=== PATIENT | male | born 1990 | race Caucasian/White ===

== ENCOUNTER 2022-03-03 12:51 | Inpatient (IN) | payer BC, OTHER ==
[2022-03-03] MEDS ORDERED: LORazepam 1 MG TAB PO STA (13:54)
[2022-03-03] MEDS ORDERED: SODIUM CHLORIDE 0.9% 1,000 ML IV STA (13:55)
[2022-03-03 15:23] LABS: Basophils # (A) 0.1 k/uL (0-0.2); Basophils % (A) 1 %; Eosinophils # (A) 0.1 k/uL (0-0.7); Eosinophils % (A) 1 %; HCT 53.2 % (39.0-53.0); HGB 17.1 gm/dL (13.0-17.5); Lymphocytes % (A) 7 %; MCHC 32.1 g/dL (31.0-37.0); MCV 99.5 fL (80.0-100.0); Mean Platelet Volume 8.5; Monocytes # (A) 1.8 k/uL (0-1.0); Monocytes % (A) 13 %; Neutrophils # (A) 10.7 k/uL (1.3-7.7); Neutrophils % (A) 77 %; Platelet Count 275 k/uL (150-450); RBC 5.35 m/uL (4.30-5.90); RDW 13.5 % (11.5-15.5); WBC 13.9 k/uL (3.8-10.6)
--- NOTE | 2022-03-03 15:30 | XR ---
EXAMINATION TYPE: XR chest 2V DATE OF EXAM: 03/03/2022 COMPARISON: NONE TECHNIQUE: PA and lateral views submitted. HISTORY: Pain FINDINGS: The lungs are clear and there is no pneumothorax, pleural effusion, or focal pneumonia. Heart size normal. No overt failure. IMPRESSION: 1. No acute process.
--- NOTE | 2022-03-03 15:31 | XR ---
EXAMINATION TYPE: XR Hip Complete RT DATE OF EXAM: 03/03/2022 COMPARISON: NONE HISTORY: Pain TECHNIQUE: 2 views submitted FINDINGS: There is no evidence of erosive change or acute fracture. IMPRESSION: 1. No evidence of acute fracture or dislocation.
--- NOTE | 2022-03-03 15:31 | XR ---
EXAMINATION TYPE: XR shoulder complete RT DATE OF EXAM: 03/03/2022 COMPARISON: NONE HISTORY: Pain TECHNIQUE: Three views are submitted. FINDINGS: The osseous structures are intact. There is no acute fracture or dislocation. The AC joint is maint ained. IMPRESSION: 1. No acute process.
--- NOTE | 2022-03-03 15:35 | ED ---
General Adult HPI - General Chief complaint: Fall Stated complaint: fall Time Seen by Provider: 03/03/22 12:58 Source: patient, EMS Mode of arrival: EMS Limitations: no limitations - History of Present Illness Initial comments: 1-year-old male with history of alcohol abuse presents to the emergency department from [place]. He went in today for admission. He reported to them that he was having numbness in his right arm as well as right hip pain. Admits that last night he got significantly intoxicated and found himself on the floor this morning. He was unsure how he got on the floor but assumed that he fell. He is unsure how long he had been unconscious for. He admits pain in the right proximal humerus with numbness and tingling that radiates from his right shoulder down to his fingertips. He denies any headaches or visual changes. No neck pain. He also admits to right hip pain. Urine sample that was provided at [place] was dark in coloration and this prompted his transfer over to the hospital. His last drink was last night. He denies use of any other drugs. He denies any chest pain or shortness of breath. No abdominal pain. No other alleviating, precipitating or modifying factors - Related Data Home Medications Medication Instructions Recorded Confirmed Labetalol [Trandate] 100 mg PO BID 03/03/22 03/03/22 amLODIPine [Norvasc] 10 mg PO DAILY 03/03/22 03/03/22 Allergies Allergy/AdvReac Type Severity Reaction Status Date / Time No Known Allergies Allergy Verified 03/03/22 17:00 Review of Systems ROS Statement: Those systems with pertinent positive or pertinent negative responses have been documented in the HPI. ROS Other: All systems not noted in ROS Statement are negative. Past Medical History Past Medical History: Hypertension History of Any Multi-Drug Resistant Organisms: None Reported Past Surgical History: No Surgical Hx Reported Past Psychological History: Anxiety, Bipolar, Depression Smoking Status: Current some day smoker Past Alcohol Use History: Daily Past Drug Use History: Marijuana - Past Family History Family Family Medical History: No Reported History General Exam Limitations: no limitations General appearance: alert, in no apparent distress Head exam: Present: atraumatic, normocephalic, normal inspection Eye exam: Present: normal appearance, PERRL, EOMI. Absent: scleral icterus, conjunctival injection, periorbital swelling ENT exam: Present: normal exam, mucous membranes moist Neck exam: Present: normal inspection. Absent: tenderness, meningismus, lymphadenopathy Respiratory exam: Present: normal lung sounds bilaterally. Absent: respiratory distress, wheezes, rales, rhonchi, stridor Cardiovascular Exam: Present: regular rate, normal rhythm, normal heart sounds. Absent: systolic murmur, diastolic murmur, rubs, gallop, clicks GI/Abdominal exam: Present: soft, normal bowel sounds. Absent: distended, tenderness, guarding, rebound, rigid Extremities exam: Present: tenderness (lateral right mid humerus), normal capillary refill, other (decreased soft touch in median, radial and ulnar nerve distibutions of right hand. slow ROM. 4/5 strength rue). Absent: pedal edema, joint swelling, calf tenderness Back exam: Present: normal inspection Neurological exam: Present: alert, oriented X3, CN II-XII intact Psychiatric exam: Present: normal affect, normal mood Skin exam: Present: warm, dry, intact, normal color. Absent: rash Course Vital Signs 03/03/22 03/03/22 03/03/22 12:54 18:00 21:00 Temperature 97.5 F L Pulse Rate 90 97 93 Respiratory 18 18 18 Rate Blood Pressure 100/74 119/81 118/81 O2 Sat by Pulse 97 97 97 Oximetry EKG Findings - EKG Comments: EKG Findings:: EKG demonstrates sinus rhythm with a rate of 97. OK interval 157. QRS 76. QTC of 369. No acute ST segment elevations or depressions Medical Decision Making - Medical Decision Making Upon arrival patient was placed into [place] [id number]. A thorough history and physical exam was performed. Patient does have palpable pulses. Compartments are soft in his right upper extremity. He does have intact sensation however this is decreased to light touch. There is notable pressure ulcer to the outside of the right humerus. IV was established and laboratory studies are conducted. It does take a significant amount of time to receive results due to elevations. Sodium 131. Creatinine 2.2. Lactic acid 2.9. Troponin 0.261. Creatinine kinase 143,513. Due to the elevation in troponin and numbness in the right arm, CT of the chest is considered for possible dissection. We did get approval from radiology in order to inject the patient with contrast knowing his GFR was 38. Chest x-ray, hip x-ray and shoulder x-ray all negative for acute process. CT the head and cervical spine demonstrates no acute fractures. CT abdomen and pelvis demonstrates right flank ecchymosis, hepatic steatosis and hepatomegaly CT of the chest does not demonstrate PE or dissection. I did call and speak with Dr. Chance and Dr. Varghese in regards to the patient's numbness in his right arm. Dr. Varghese does not feel that the patient needs a c-collar as he has no neck pain, is not intoxicated and CT of the neck is negative. I did discuss the results with the patient as well as with Dr. Landin who will admit the patient. He was given 3 L of fluid followed by 130 mL per hour. Patient remained in stable condition awaiting a bed on the floor - Lab Data Result diagrams: 03/05/22 06:30 03/05/22 06:30 Lab Results 03/03/22 03/03/22 03/03/22 Range/Units 15:00 15:00 15:00 WBC 13.9 H (3.8-10.6) k/uL RBC 5.35 (4.30-5.90) m/uL Hgb 17.1 (13.0-17.5) gm/dL Hct 53.2 H (39.0-53.0) % MCV 99.5 (80.0-100.0) fL MCH 32.0 (25.0-35.0) pg MCHC 32.1 (31.0-37.0) g/dL RDW 13.5 (11.5-15.5) % Plt Count 275 (150-450) k/uL MPV 8.5 Neutrophils % 77 % Lymphocytes % 7 % Monocytes % 13 % Eosinophils % 1 % Basophils % 1 % Neutrophils # 10.7 H (1.3-7.7) k/uL Lymphocytes # 1.0 (1.0-4.8) k/uL Monocytes # 1.8 H (0-1.0) k/uL Eosinophils # 0.1 (0-0.7) k/uL Basophils # 0.1 (0-0.2) k/uL PT 12.1 H (9.0-12.0) sec INR 1.1 (<1.2) APTT 34.5 H (22.0-30.0) sec Sodium (137-145) mmol/L Potassium (3.5-5.1) mmol/L Chloride (98-107) mmol/L Carbon Dioxide (22-30) mmol/L Anion Gap mmol/L BUN (9-20) mg/dL Creatinine (0.66-1.25) mg/dL Est GFR (CKD-EPI)AfAm (>60 ml/min/1.73 sqM) Est GFR (CKD-EPI)NonAf (>60 ml/min/1.73 sqM) Glucose (74-99) mg/dL Lactic Ac Sepsis Rflx Plasma Lactic Acid Navdeep 2.9 H* (0.7-2.0) mmol/L Calcium (8.4-10.2) mg/dL Total Bilirubin (0.2-1.3) mg/dL AST (17-59) U/L ALT (4-49) U/L Alkaline Phosphatase (38-126) U/L Creatine Kinase (55-170) U/L Troponin I (0.000-0.034) ng/mL Total Protein (6.3-8.2) g/dL Albumin (3.5-5.0) g/dL Serum Alcohol mg/dL 03/03/22 03/03/22 03/03/22 Range/Units 15:40 15:54 15:54 WBC (3.8-10.6) k/uL RBC (4.30-5.90) m/uL Hgb (13.0-17.5) gm/dL Hct (39.0-53.0) % MCV (80.0-100.0) fL MCH (25.0-35.0) pg MCHC (31.0-37.0) g/dL RDW (11.5-15.5) % Plt Count (150-450) k/uL MPV Neutrophils % % Lymphocytes % % Monocytes % % Eosinophils % % Basophils % % Neutrophils # (1.3-7.7) k/uL Lymphocytes # (1.0-4.8) k/uL Monocytes # (0-1.0) k/uL Eosinophils # (0-0.7) k/uL Basophils # (0-0.2) k/uL PT (9.0-12.0) sec INR (<1.2) APTT (22.0-30.0) sec Sodium 131 L (137-145) mmol/L Potassium 5.0 (3.5-5.1) mmol/L Chloride 98 (98-107) mmol/L Carbon Dioxide 25 (22-30) mmol/L Anion Gap 8 mmol/L BUN 19 (9-20) mg/dL Creatinine 2.24 H (0.66-1.25) mg/dL Est GFR (CKD-EPI)AfAm 44 (>60 ml/min/1.73 sqM) Est GFR (CKD-EPI)NonAf 38 (>60 ml/min/1.73 sqM) Glucose 117 H (74-99) mg/dL Lactic Ac Sepsis Rflx Y Plasma Lactic Acid Navdeep (0.7-2.0) mmol/L Calcium 8.5 (8.4-10.2) mg/dL Total Bilirubin 0.6 (0.2-1.3) mg/dL AST 1589 H (17-59) U/L ALT 420 H (4-49) U/L Alkaline Phosphatase 83 (38-126) U/L Creatine Kinase 460512 H* (55-170) U/L Troponin I 0.261 H* (0.000-0.034) ng/mL Total Protein 6.4 (6.3-8.2) g/dL Albumin 3.7 (3.5-5.0) g/dL Serum Alcohol <10 mg/dL Disposition Clinical Impression: Alcohol withdrawal, Rhabdomyolysis, JOHN (acute kidney injury), Neurapraxia of right upper extremity, NSTEMI (non-ST elevated myocardial infarction) Disposition: ADMITTED IP TO THIS [facility] Condition: Serious Is patient prescribed a controlled substance at d/c from ED?: No Time of Disposition: 17:53 Decision to Admit Reason: Admit from EC Decision Date: 03/03/22 Decision Time: 17:53
--- NOTE | 2022-03-03 15:35 | CT ---
EXAMINATION TYPE: CT brain princess jose con DATE OF EXAM: 03/03/2022 COMPARISON: None HISTORY: fall, trauma and pain CT DLP: 1402.5 mGycm Automated exposure control for dose reduction was used. TECHNIQUE: CT scan of the head and cervical spine are performed without contrast. FINDINGS: There is no acute intracranial hemorrhage, mass effect, or midline shift identified. The ventricles and sulci are within normal limits in size. The globes are intact and the visualized sin uses are clear. Cervical spine is visualized in its entirety from C1 through upper thoracic levels and demonstrates s atisfactory alignment without evidence of acute fracture or dislocation. Prevertebral soft tissue ap pears within normal limits. The C1-C2 articulation is unremarkable. IMPRESSION: 1. There is no acute fracture or dislocation evident in the cervical spine. 2. No acute intracranial hemorrhage, mass effect, or midline shift is seen.
[2022-03-03 15:55] LABS: INR 1.1 (<1.2); Partial Thromboplastin Time 34.5 sec (22.0-30.0); Prothrombin Time 12.1 sec (9.0-12.0)
--- NOTE | 2022-03-03 16:08 | CT ---
EXAMINATION TYPE: CT abdomen pelvis wo con DATE OF EXAM: 03/03/2022 COMPARISON: None HISTORY: right flank pain CT DLP: 653.9 mGycm Automated exposure control for dose reduction was used. TECHNIQUE: Helical acquisition of images from the lung bases through the pelvis. FINDINGS: Lack of intravenous contrast could compromise the sensitivity of the exam. There is increased attenuation present about the right hip musculature, increased density within the subcutaneous fat, gluteus musculature appears edematous some loss of fat planes, gluteus minimus musc ulature and gluteus medius muscle, tensor fascia maurice muscle. LUNG BASES: There may be some basilar atelectatic changes or scarring AORTA: No significant abnormality is appreciated. LIVER/GB: Liver shows low attenuation likely due to hepatic steatosis, liver is enlarged, gallbladder is unremarkable, some probable focal fatty sparing present adjacent to the gallbladder PANCREAS: No significant abnormality is seen. SPLEEN: No significant abnormality is seen. ADRENALS: No significant abnormality is seen. KIDNEYS: No significant abnormality is seen. REPRODUCTIVE ORGANS: No significant abnormality is seen. URINARY BLADDER: No significant abnormality is seen. BOWEL: No significant abnormality is seen. FREE AIR: No Free Air is visible. ASCITES: None visible. PELVIC ADENOPATHY: None visualized. RETROPERITONEAL ADENOPATHY: No Retroperitoneal Adenopathy visible. OSSEOUS STRUCTURES: No significant abnormality is seen. IMPRESSION: CORRELATE FOR RIGHT FLANK ECCHYMOSIS, CONSIDER MYOSITIS, POSTTRAUMATIC EDEMA ALONG THE PELVIC MUSCULA TURE ON THE RIGHT. HEPATIC STEATOSIS, HEPATOMEGALY.
[2022-03-03 16:21] LABS: ALT 420 U/L (4-49); African American GFR (CKD) 44 (>60 ml/min/1.73 sqM); Albumin 3.7 g/dL (3.5-5.0); Alcohol <10 mg/dL; Alkaline Phosphatase 83 U/L (38-126); Anion Gap 8 mmol/L; Blood Urea Nitrogen 19 mg/dL (9-20); Calcium 8.5 mg/dL (8.4-10.2); Carbon Dioxide 25 mmol/L (22-30); Chloride 98 mmol/L (98-107); Glucose 117 mg/dL (74-99); Non-African American GFR(CKD) 38 (>60 ml/min/1.73 sqM); Sodium 131 mmol/L (137-145); Total Bilirubin 0.6 mg/dL (0.2-1.3); Total Protein 6.4 g/dL (6.3-8.2)
[2022-03-03 17:00] LABS: AST 1589 U/L (17-59)
[2022-03-03] MEDS ORDERED: SODIUM CHLORIDE 0.9% 2,000 ML IV ONE (17:09)
--- NOTE | 2022-03-03 17:50 | CT ---
EXAMINATION TYPE: CT angio chest CT DLP: 435.5 mGycm, Automated exposure control for dose reduction was used. DATE OF EXAM: 03/03/2022 5:23 PM COMPARISON: None CLINICAL INDICATION:Male, 31 years old with history of elevated trop; Elevated troponin. Recent fall. TECHNIQUE/CONTRAST: CTA scan of the thorax is performed with IV Contrast, patient injected with 65ml mL of Isovue 370, pu lmonary embolism protocol. MIP images are created and reviewed. FINDINGS: Pulmonary Artery: There is no evidence for a filling defect within the pulmonary vasculature to sugge st acute pulmonary embolism. The pulmonary artery is of normal size. Lungs/Pleura: Scattered airspace opacities most pronounced in the right upper lung are present. No ev idence of focal consolidation, pleural effusion or pneumothorax. Airway: Large airways are patent. Heart: Heart is within normal limits for size.. Vasculature: No evidence of aortic aneurysm. Mediastinum: No gross evidence of adenopathy. Musculoskeletal: No acute osseous abnormalities Soft Tissues: Unremarkable. Lower neck: No significant findings. Upper Abdomen: Diffuse low-attenuation to the liver parenchyma.. IMPRESSION: 1. No evidence of pulmonary embolism. 2. Scattered airspace opacities in the right upper lobe which are slightly groundglass, correlate for atypical pneumonia 3. Marked Hepatic steatosis.
[2022-03-03 17:51] LABS: Creatine Kinase 143513 U/L (55-170)
[2022-03-03] MEDS ORDERED: NALOXONE 0.4 MG/ML 1 ML VIAL IV PRN (17:53)
[2022-03-03] MEDS ORDERED: THIAMINE 100 MG/ML 2 ML VIAL IM STA (22:08)
[2022-03-03] MEDS: THIAMINE 100 MG TAB PO SCH (22:31)
[2022-03-03] MEDS: SODIUM CHLORIDE 0.9% 1,000 ML IV SCH ×2 (22:39→22:48)
[2022-03-03] MEDS: LABETALOL 100 MG TAB PO SCH (22:39)
[2022-03-03] MEDS: LORazepam 2 MG/ML INJ IV PRN ×2 (22:40→23:38)
[2022-03-03] MEDS ORDERED: chlordiazePOXIDE 25 MG CAP PO STA (22:44)
--- NOTE | 2022-03-03 22:55 | P.HPIM ---
History of Present Illness H&P Date: 03/03/22 Chief Complaint: Alcohol withdrawal 31-year-old male with hypertension controlled with medications Patient comes in today for evaluation of alcohol withdrawal syndrome. He i nitially went [facility] but then was sent to our facility as the patient reported that he was very intoxicated last night that he woke up on the floor doesn't remember anything he was having right-sided pain especially in his shoulder arm and right hip from sleeping on the floor all night for unknown duration. He also noticed to have dark urine. 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 He's been drinking heavily recently. Patient is not sure if he fell or no he doesn't remember anything from last night. Last alcoholic drink was last night. He denies any drugs he would smoke marijuana occasionally. He smokes cigarettes occasionally. He denies any recent travel or history of blood clots. Denies any coughing shortness of breath or chest pain. CT of the head was negative x-rays of the shoulder and hip showed no acute pathology chest x-rays no acute pathology. Rest of his blood work showed elevated creatine phosphokinase of more than 140,000, acute kidney injury with elevated creatinine more than 2 mild hyponatremia potassium of 5 lactic acid of 2.9 elevated liver enzymes in the toxic level patient denies any overdosing on Tylenol salicylic or any other drugs. Troponin was slightly elevated at 0.26 Patient reports severe pain right upper extremity mainly in the right shoulder and right hip. He also reports some numbness since he woke up and has right upper extremity mainly in the hand Review of Systems Pertinent positives as noted in HPI. All other systems were reviewed and are negative Past Medical History Past Medical History: Hypertension History of Any Multi-Drug Resistant Organisms: None Reported Past Surgical History: No Surgical Hx Reported Past Psychological History: Anxiety, Bipolar, Depression Smoking Status: Current some day smoker Past Alcohol Use History: Daily Past Drug Use History: Marijuana - Past Family History Family Family Medical History: No Reported History Medications and Allergies Home Medications Medication Instructions Recorded Confirmed Type Labetalol [Trandate] 100 mg PO BID 03/03/22 03/03/22 History amLODIPine [Norvasc] 10 mg PO DAILY 03/03/22 03/03/22 History Allergies Allergy/AdvReac Type Severity Reaction Status Date / Time No Known Allergies Allergy Verified 03/03/22 17:00 Physical Exam Vitals: Vital Signs Temp Pulse Resp BP Pulse Ox 03/03/22 18:00 97 18 119/81 97 03/03/22 12:54 97.5 F L 90 18 100/74 97 Intake and Output 03/03/22 03/03/22 03/03/22 06:59 14:59 22:59 Other: Weight 83.915 kg Constitutional: No acute distress, conversant, pleasant, tremors Eyes: Anicteric sclerae, moist conjunctiva, Pupils equal round reactive to light ENMT: NC/AT Oropharynx clear, no erythema, or exudates Neck: Supple, no masses, or JVD No carotid bruits No thyromegaly Lungs: Clear to auscultation Clear to percussion Normal respiratory effort, no accessory muscle use Cardiovascular: Heart regular in rate and rhythm, No murmurs, gallops, or rubs No peripheral edema Abdominal: Soft Nontender, no guarding, rebound or rigidity Abdomen moving with respiration Normoactive bowel sounds No hepatomegaly, No splenomegaly No palpable mass No abdominal wall hernia noted Skin: Normal temperature, tone, texture, turgor No induration No subcutaneous nodules No rash, lesions No ulcers Extremities: Swelling of the right upper extremity tender to palpation over the arm, No clubbing Pedal pulses intact and symmetrical Radial pulses intact and symmetrical capillary refill is immediate No calf tenderness Psychiatric: Alert and oriented to person, place and time Appropriate affect fair judgement Neuro Muscles Strength 5/5 in bilateral lower extremities and left upper extremity, limited movement over the right upper extremity due to severe pain Sensation to light touch grossly present throughout Cranial nerves II-XII grossly intact No focal sensory deficits Lymphatics: no palpable cervical or supraclavicular , or inguinal lymph nodes Results CBC & Chem 7: 03/03/22 15:00 03/03/22 15:54 Labs: Abnormal Lab Results - Last 24 Hours (Table) 03/03/22 03/03/22 03/03/22 Range/Units 15:00 15:00 15:00 WBC 13.9 H (3.8-10.6) k/uL Hct 53.2 H (39.0-53.0) % Neutrophils # 10.7 H (1.3-7.7) k/uL Monocytes # 1.8 H (0-1.0) k/uL PT 12.1 H (9.0-12.0) sec APTT 34.5 H (22.0-30.0) sec Sodium (137-145) mmol/L Creatinine (0.66-1.25) mg/dL Glucose (74-99) mg/dL Plasma Lactic Acid Navdeep 2.9 H* (0.7-2.0) mmol/L AST (17-59) U/L ALT (4-49) U/L Creatine Kinase (55-170) U/L Troponin I (0.000-0.034) ng/mL 03/03/22 03/03/22 Range/Units 15:54 15:54 WBC (3.8-10.6) k/uL Hct (39.0-53.0) % Neutrophils # (1.3-7.7) k/uL Monocytes # (0-1.0) k/uL PT (9.0-12.0) sec APTT (22.0-30.0) sec Sodium 131 L (137-145) mmol/L Creatinine 2.24 H (0.66-1.25) mg/dL Glucose 117 H (74-99) mg/dL Plasma Lactic Acid Navdeep (0.7-2.0) mmol/L AST 1589 H (17-59) U/L ALT 420 H (4-49) U/L Creatine Kinase 618881 H* (55-170) U/L Troponin I 0.261 H* (0.000-0.034) ng/mL Assessment and Plan Assessment: Acute rhabdomyolysis Acute kidney injury secondary to above Monitor CPK Monitor renal function Monitor urine output target of 200 mL/h Aggressive IV fluid hydration patient to receive 2-3 L normal saline boluses 1 L /h then continue with normal saline 250 mL per hour Nephrology consult Avoid nephrotoxic meds Monitor electrolytes potassium, phosphorus, calcium Bicarb is 25 Alcohol withdrawal syndrome in alcohol dependent patient Acute hepatic toxicity most likely secondary to alcohol abuse and shocked liver from dehydration Elevated lactic acid was likely secondary to dehydration and poor perfusion Again aggressive IV fluid hydration Monitor liver function Avoid hepatotoxic meds Benzos per CIWA scale Seizure precautions Fall precautions Hypertension Controlled Resume labetalol and amlodipine DVT prophylaxis heparin subcu 3 times a day Full code
[2022-03-03] MEDS: HEPARIN SODIUM,PORCINE/PF 5,000 UNIT/0.5 ML SYRINGE SQ SCH (23:59)
[2022-03-04] MEDS: LORazepam 2 MG/ML INJ IV PRN ×6 (01:35→20:07)
[2022-03-04 02:26] LABS: Amorphous Sediment,Urine Rare /hpf; Appearance,Urine Cloudy (Clear); Bacteria,Urine Rare /hpf; Bilirubin,Urine Negative (Negative); Blood,Urine Large (Negative); Color,Urine Yellow; Glucose,Urine (UA) Negative (Negative); Hyaline Casts,Urine 1 /lpf (0-2); Ketones,Urine Negative (Negative); Leukocyte Esterase,Urine Negative (Negative); Mucus,Urine Rare /hpf; Nitrite,Urine Negative (Negative); PH, Urine 5.5 (5.0-8.0); Protein,Urine 2+ (Negative); RBC,Urine 9 /hpf (0-5); Specific Gravity,Urine 1.011 (1.001-1.035); Squamous Epithelial Cell,Urine <1 /hpf (0-4); Urobilinogen,Urine <2.0 mg/dL (<2.0); WBC,Urine 3 /hpf (0-5)
[2022-03-04 02:28] LABS: Amphetamine Screen,Urine Not Detected (NotDetected); Barbiturate Screen,Urine Not Detected (NotDetected); Benzodiazepines Screen,Urine Detected (NotDetected); Cocaine Screen,Urine Not Detected (NotDetected); Methadone Screen, Urine Not Detected (NotDetected); Opiate Screen,Urine Not Detected (NotDetected); Oxycodone Screen, Urine Not Detected (NotDetected); Phencyclidine Screen,Urine Not Detected (NotDetected); Tricyclic Antidepressant,Urine Not Detected (NotDetected); Urn Cannabinoid Scrn Not Detected (NotDetected)
[2022-03-04] MEDS: SODIUM CHLORIDE 0.9% 1,000 ML IV SCH ×5 (03:02→16:07)
[2022-03-04 04:13] LABS: Albumin 2.6 g/dL (3.5-5.0); Calcium 7.7 mg/dL (8.4-10.2); Phosphorus 5.9 mg/dL (2.5-4.5); Potassium 4.6 mmol/L (3.5-5.1); Total Bilirubin 0.4 mg/dL (0.2-1.3)
[2022-03-04 04:19] LABS: Basophils % (A) 0 %; Eosinophils % (A) 0 %; HCT 44.2 % (39.0-53.0); Lymphocytes # (A) 1.1 k/uL (1.0-4.8); Lymphocytes % (A) 10 %; MCH 30.6 pg (25.0-35.0); MCHC 31.4 g/dL (31.0-37.0); MCV 97.6 fL (80.0-100.0); Mean Platelet Volume 7.7; Monocytes # (A) 1.1 k/uL (0-1.0); Monocytes % (A) 10 %; Neutrophils # (A) 8.9 k/uL (1.3-7.7); Neutrophils % (A) 79 %; Platelet Count 214 k/uL (150-450); RBC 4.53 m/uL (4.30-5.90); RDW 13.2 % (11.5-15.5); WBC 11.3 k/uL (3.8-10.6)
[2022-03-04 04:30] LABS: HGB 13.9 gm/dL (13.0-17.5)
[2022-03-04] MEDS: PANTOPRAZOLE 40 MG TABLET PO SCH (06:14)
[2022-03-04] MEDS: THIAMINE 100 MG TAB PO SCH ×2 (06:14→16:18)
[2022-03-04] MEDS: HEPARIN SODIUM,PORCINE/PF 5,000 UNIT/0.5 ML SYRINGE SQ SCH ×3 (08:35→22:42)
[2022-03-04] MEDS: amLODIPine 10 MG TAB PO SCH (08:35)
[2022-03-04] MEDS: LABETALOL 100 MG TAB PO SCH ×2 (08:38→20:00)
[2022-03-04 09:40] LABS: Hepatitis A Antibody IgM Nonreactive (Nonreactive); Hepatitis B Core IgM Nonreactive (Nonreactive); Hepatitis B Surface Antigen Nonreactive (Nonreactive); Hepatitis C IgG Antibody Nonreactive (Nonreactive)
--- NOTE | 2022-03-04 10:42 | P.GSCN ---
History of Present Illness Consult date: 03/04/22 Reason for Consult: Right upper extremity numbness Requesting physician: Martina Malhotra History of present illness: This is a 31-year-old white male who presented to the emergency department yesterday from [facility] with complaints of pain and numbness in the right upper extremity and right hip. Apparently, the patient states he drank quite heavily on Wednesday and last remembers coming out of his bathroom. He woke up yesterday on the floor. He is unsure how long he was there. He states that he was experiencing right upper extremity and hip pain. However he had an appointment at [facility] and did not want to miss it. He has a history of heavy alcohol use. He states he was going through withdrawals. He states numbness has improved in the right upper extremity. He is now able to move his hand more and has more feeling. He is still having pain mostly in the shoulder to the elbow. He is left-hand dominant. He is denying any chest pain, shortness of breath, abdominal pain, nausea or vomiting. No fevers or chills. He is stating that he is going through withdrawals at this time and is quite s haky. He was noted to have elevated lactic acid, creatinine kinase, and troponins on admission. Shoulder x-ray with no acute findings, CT brain and C- spine without contrast reports no acute fracture or dislocation evident in the cervical spine. No acute intracranial hemorrhage, mass effect or midline shift seen. Labs: WBC 11.3 hemoglobin 13.9 platelet count 214,000 INR 1.1 sodium 126 potassium 4.6 BUN 24 creatinine 3.44 total bilirubin 0.4 AST 1070 ALT 294 alk phos 69 creatinine kinase 94817 troponin 0.236 hepatitis panel nonreactive Review of Systems A 14 point review systems was completed all pertinent positives and negatives as stated in the HPI. Past Medical History Past Medical History: Hypertension History of Any Multi-Drug Resistant Organisms: None Reported Past Surgical History: No Surgical Hx Reported Past Anesthesia/Blood Transfusion Reactions: No Reported Reaction Past Psychological History: Anxiety, Bipolar, Depression Smoking Status: Current some day smoker Past Alcohol Use History: Daily Past Drug Use History: Marijuana - Past Family History Family Family Medical History: No Reported History Medications and Allergies Home Medications Medication Instructions Recorded Confirmed Type Labetalol [Trandate] 100 mg PO BID 03/03/22 03/03/22 History amLODIPine [Norvasc] 10 mg PO DAILY 03/03/22 03/03/22 History Allergies Allergy/AdvReac Type Severity Reaction Status Date / Time No Known Allergies Allergy Verified 03/03/22 17:00 Surgical - Exam Vital Signs Temp Pulse Resp BP Pulse Ox 97.5 F L 90 18 100/74 97 03/03/22 12:54 03/03/22 12:54 03/03/22 12:54 03/03/22 12:54 03/03/22 12:54 General appearance: The patient is alert, oriented, appears in no acute distress. HET: Head is normocephalic and atraumatic. Pupils are equal and reactive. Neck: Supple without lymphadenopathy. Trachea midline. Heart: S1 S2. Regular rate and rhythm. Lungs: Clear to auscultation bilaterally. Abdomen: Soft, nontender, nondistended. Extremities: Normal skin color and turgor. Right upper extremity swollen from shoulder to elbow. Bruising noted to the lateral side of the right upper extre mity. He has a palpable radial and ulnar pulse. Normal strength and tone. He is able to move his fingers. He does have difficulty with elevation of right arm and rotation of the shoulder due to pain. Neurological: No focal deficits. Alert and oriented 3. Patient is visibly shaking/tremors. Results - Labs 03/04/22 03:24 03/04/22 03:24 Abnormal Lab Results - Last 24 Hours (Table) 03/03/22 03/03/22 03/03/22 Range/Units 15:00 15:00 15:00 WBC 13.9 H (3.8-10.6) k/uL Hct 53.2 H (39.0-53.0) % Neutrophils # 10.7 H (1.3-7.7) k/uL Monocytes # 1.8 H (0-1.0) k/uL PT 12.1 H (9.0-12.0) sec APTT 34.5 H (22.0-30.0) sec Sodium (137-145) mmol/L Carbon Dioxide (22-30) mmol/L BUN (9-20) mg/dL Creatinine (0.66-1.25) mg/dL Glucose (74-99) mg/dL Plasma Lactic Acid Navdeep 2.9 H* (0.7-2.0) mmol/L Calcium (8.4-10.2) mg/dL Phosphorus (2.5-4.5) mg/dL AST (17-59) U/L ALT (4-49) U/L Creatine Kinase (55-170) U/L Troponin I (0.000-0.034) ng/mL Total Protein (6.3-8.2) g/dL Albumin (3.5-5.0) g/dL Urine Protein (Negative) Urine Blood (Negative) Urine RBC (0-5) /hpf Amorphous Sediment (None) /hpf Urine Bacteria (None) /hpf Urine Mucus (None) /hpf U Benzodiazepines Scrn (NotDetected) 03/03/22 03/03/22 03/03/22 Range/Units 15:54 15:54 20:28 WBC (3.8-10.6) k/uL Hct (39.0-53.0) % Neutrophils # (1.3-7.7) k/uL Monocytes # (0-1.0) k/uL PT (9.0-12.0) sec APTT (22.0-30.0) sec Sodium 131 L (137-145) mmol/L Carbon Dioxide (22-30) mmol/L BUN (9-20) mg/dL Creatinine 2.24 H (0.66-1.25) mg/dL Glucose 117 H (74-99) mg/dL Plasma Lactic Acid Navdeep 2.2 H* (0.7-2.0) mmol/L Calcium (8.4-10.2) mg/dL Phosphorus (2.5-4.5) mg/dL AST 1589 H (17-59) U/L ALT 420 H (4-49) U/L Creatine Kinase 364446 H* (55-170) U/L Troponin I 0.261 H* (0.000-0.034) ng/mL Total Protein (6.3-8.2) g/dL Albumin (3.5-5.0) g/dL Urine Protein (Negative) Urine Blood (Negative) Urine RBC (0-5) /hpf Amorphous Sediment (None) /hpf Urine Bacteria (None) /hpf Urine Mucus (None) /hpf U Benzodiazepines Scrn (NotDetected) 03/03/22 03/04/22 03/04/22 Range/Units 23:30 01:28 03:24 WBC 11.3 H (3.8-10.6) k/uL Hct (39.0-53.0) % Neutrophils # 8.9 H (1.3-7.7) k/uL Monocytes # 1.1 H (0-1.0) k/uL PT (9.0-12.0) sec APTT (22.0-30.0) sec Sodium (137-145) mmol/L Carbon Dioxide (22-30) mmol/L BUN (9-20) mg/dL Creatinine (0.66-1.25) mg/dL Glucose (74-99) mg/dL Plasma Lactic Acid Navdeep 2.4 H* (0.7-2.0) mmol/L Calcium (8.4-10.2) mg/dL Phosphorus (2.5-4.5) mg/dL AST (17-59) U/L ALT (4-49) U/L Creatine Kinase (55-170) U/L Troponin I (0.000-0.034) ng/mL Total Protein (6.3-8.2) g/dL Albumin (3.5-5.0) g/dL Urine Protein 2+ H (Negative) Urine Blood Large H (Negative) Urine RBC 9 H (0-5) /hpf Amorphous Sediment Rare H (None) /hpf Urine Bacteria Rare H (None) /hpf Urine Mucus Rare H (None) /hpf U Benzodiazepines Scrn Detected H (NotDetected) 03/04/22 03/04/22 Range/Units 03:24 03:24 WBC (3.8-10.6) k/uL Hct (39.0-53.0) % Neutrophils # (1.3-7.7) k/uL Monocytes # (0-1.0) k/uL PT (9.0-12.0) sec APTT (22.0-30.0) sec Sodium 126 L (137-145) mmol/L Carbon Dioxide 21 L (22-30) mmol/L BUN 24 H (9-20) mg/dL Creatinine 3.44 H (0.66-1.25) mg/dL Glucose (74-99) mg/dL Plasma Lactic Acid Navdeep (0.7-2.0) mmol/L Calcium 7.7 L (8.4-10.2) mg/dL Phosphorus 5.9 H (2.5-4.5) mg/dL AST 1070 H (17-59) U/L ALT 294 H (4-49) U/L Creatine Kinase 20210 H* (55-170) U/L Troponin I (0.000-0.034) ng/mL Total Protein 5.0 L (6.3-8.2) g/dL Albumin 2.6 L (3.5-5.0) g/dL Urine Protein (Negative) Urine Blood (Negative) Urine RBC (0-5) /hpf Amorphous Sediment (None) /hpf Urine Bacteria (None) /hpf Urine Mucus (None) /hpf U Benzodiazepines Scrn (NotDetected) Diabetes panel 03/03/22 03/04/22 Range/Units 15:54 03:24 Sodium 131 L 126 L (137-145) mmol/L Potassium 5.0 4.6 (3.5-5.1) mmol/L Chloride 98 101 (98-107) mmol/L Carbon Dioxide 25 21 L (22-30) mmol/L BUN 19 24 H (9-20) mg/dL Creatinine 2.24 H 3.44 H (0.66-1.25) mg/dL Glucose 117 H 93 (74-99) mg/dL Calcium 8.5 7.7 L (8.4-10.2) mg/dL AST 1589 H 1070 H (17-59) U/L ALT 420 H 294 H (4-49) U/L Alkaline Phosphatase 83 69 (38-126) U/L Total Protein 6.4 5.0 L (6.3-8.2) g/dL Albumin 3.7 2.6 L (3.5-5.0) g/dL Calcium panel 03/03/22 03/04/22 Range/Units 15:54 03:24 Calcium 8.5 7.7 L (8.4-10.2) mg/dL Phosphorus 5.9 H (2.5-4.5) mg/dL Albumin 3.7 2.6 L (3.5-5.0) g/dL Pituitary panel 03/03/22 03/04/22 Range/Units 15:54 03:24 Sodium 131 L 126 L (137-145) mmol/L Potassium 5.0 4.6 (3.5-5.1) mmol/L Chloride 98 101 (98-107) mmol/L Carbon Dioxide 25 21 L (22-30) mmol/L BUN 19 24 H (9-20) mg/dL Creatinine 2.24 H 3.44 H (0.66-1.25) mg/dL Glucose 117 H 93 (74-99) mg/dL Calcium 8.5 7.7 L (8.4-10.2) mg/dL Adrenal panel 03/03/22 03/04/22 Range/Units 15:54 03:24 Sodium 131 L 126 L (137-145) mmol/L Potassium 5.0 4.6 (3.5-5.1) mmol/L Chloride 98 101 (98-107) mmol/L Carbon Dioxide 25 21 L (22-30) mmol/L BUN 19 24 H (9-20) mg/dL Creatinine 2.24 H 3.44 H (0.66-1.25) mg/dL Glucose 117 H 93 (74-99) mg/dL Calcium 8.5 7.7 L (8.4-10.2) mg/dL Total Bilirubin 0.6 0.4 (0.2-1.3) mg/dL AST 1589 H 1070 H (17-59) U/L ALT 420 H 294 H (4-49) U/L Alkaline Phosphatase 83 69 (38-126) U/L Total Protein 6.4 5.0 L (6.3-8.2) g/dL Albumin 3.7 2.6 L (3.5-5.0) g/dL Assessment and Plan Assessment: 1. Right upper extremity pain and numbness 2. Right upper extremity injury 3. Fall 4. Alcohol Intoxication and abuse 5. Right hip pain 6. Elevated troponins 7. Elevated creatinine kinase, rhabdomyolysis Plan: 1. Right upper extremity venous duplex ordered 2. Await recommendations from orthopedics 3. Continue medical management 4. Elevate right upper extremity, may apply compression stocking to RUE 5. Please change IV fluids to left arm 6. There is no indication for any vascular surgical intervention. Thank you for this consultation, we will sign off at this time. The impression and plan of care has been dictated as directed. Dr. Chance I performed a history and examination of this patient, discussed the same with the dictator. I agree with the dictator's note ,documented as a scribe. Any additional findings or plans will be noted.
--- NOTE | 2022-03-04 10:45 | P.NPCON ---
History of Present Illness - Reason for Consult hyponatremia - History of Present Illness Patient is a 31-year-old male with previous history of hypertension and alcohol abuse. Patient was sent over from [facility] for evaluation. Patient presented there post fall. He had been intoxicated and was on the floor overnight. Patient states that he did not move much. He reported having noticed small amounts of dark urine. No previous history of kidney diseases CK was elevated at 422571 [place] [address] today Patient is maintained on IV fluids at 250 mL an hour Review of Systems As per HPI other systems negative Past Medical History Past Medical History: Hypertension History of Any Multi-Drug Resistant Organisms: None Reported Past Surgical History: No Surgical Hx Reported Past Anesthesia/Blood Transfusion Reactions: No Reported Reaction Past Psychological History: Anxiety, Bipolar, Depression Smoking Status: Current some day smoker Past Alcohol Use History: Daily Past Drug Use History: Marijuana - Past Family History Family Family Medical History: No Reported History Medications and Allergies Home Medications Medication Instructions Recorded Confirmed Type Labetalol [Trandate] 100 mg PO BID 03/03/22 03/03/22 History amLODIPine [Norvasc] 10 mg PO DAILY 03/03/22 03/03/22 History Allergies Allergy/AdvReac Type Severity Reaction Status Date / Time No Known Allergies Allergy Verified 03/03/22 17:00 Physical Exam Vitals: Vital Signs Temp Pulse Pulse Pulse Resp BP BP 03/04/22 08:00 98.1 F 91 16 134/81 03/04/22 04:00 98.4 F 90 16 119/77 03/03/22 23:53 98.5 F 94 19 130/89 03/03/22 22:12 98.5 F 94 16 130/89 03/03/22 21:00 93 18 118/81 03/03/22 18:00 97 18 119/81 03/03/22 12:54 97.5 F L 90 18 100/74 Pulse Ox 03/04/22 08:00 98 03/04/22 04:00 96 03/03/22 23:53 99 03/03/22 22:12 99 03/03/22 21:00 97 03/03/22 18:00 97 03/03/22 12:54 97 Intake and Output 03/03/22 03/04/22 03/04/22 22:59 06:59 14:59 Intake Total 1440 Output Total 200 Balance 1240 Intake: Oral 1440 Output: Urine 200 Other: Voiding Method Toilet Toilet Urinal Urinal Weight 83.915 kg Patient is awake, comfortable, not in any acute distress Alert oriented 3 Examination of the heart S1 and S2 Examination lungs bilateral breath sounds are heard Abdomen is soft nontender Examination of the lower extremities shows no evidence of edema HEMATOLOGY NURSE exam grossly intact Results - Lab Results Most recent lab results Calcium 7.7 mg/dL (8.4-10.2) L 03/04/22 03:24 Phosphorus 5.9 mg/dL (2.5-4.5) H 03/04/22 03:24 03/04/22 03:24 03/04/22 03:24 Assessment and Plan Assessment: 1. Acute kidney injury ATN secondary to rhabdomyolysis. Monitor urine output accurately. Avoid any nephrotoxic agents. Patient did have CTA of the chest yesterday. UA shows blood and protein. CT showed no evidence of obstruction 2. Severe rhabdo my lysis status post fall. Patient was on the floor overnight. CK levels are decreasing 3. Hyperphosphatemia associated with rhabdo my lysis 4. EtOH abuse 5. Hypovolemia 6. Hyponatremia associated with acute kidney injury, worsens with normal saline. Plan: Change IV fluids to IV bicarb Check sodium stat. If serum sodium is lower patient will be started on a bicarb drip based in half normal saline. Avoid any further nephrotoxic agents Check accurate I's and O's Avoid hypotension Thank you for the consultation. We'll continue to follow the patient with you during his hospitalization
[2022-03-04] MEDS: ACETAMINOPHEN TAB 325 MG TAB PO PRN (11:58)
[2022-03-04] MEDS: PREGABALIN 25 MG CAP PO SCH ×2 (11:58→19:59)
--- NOTE | 2022-03-04 12:04 | US ---
EXAMINATION TYPE: US venous doppler duplex UE RT DATE OF EXAM: 03/04/2022 COMPARISON: NONE CLINICAL HISTORY: RUE injury, swelling. RUE injury, pain and swelling. Patient fell on his right arm. SIDE PERFORMED: Right Grayscale, color Doppler, spectral Doppler imaging performed. Visualized portions the right internal jugular vein, right subclavian vein, right axillary vein, righ t basilic vein, right cephalic vein, right brachial vein, radial veins and no abnormal luminal echoes . Ulnar veins not well seen. There is normal compressibility, normal color flow, vascular waveforms a re present. Right Arm: Internal echoes seen within superficial vessel just below the elbow. This appears to be a branch of the basilic vein. Vessel does not appear to compress and shows color defect. No evidence of DVT at this time. *Exam is limited due to patient's pain and limited mobility of arm. IMPRESSION: No evident deep venous thrombosis. Findings suggest superficial venous thrombosis at a venous perfor ator as described.
--- NOTE | 2022-03-04 12:10 | P.PN ---
Subjective Progress Note Date: 03/04/22 Patient is doing better today. Still complains of pain in the right arm and right hip with numbness/tingling down the length of the arm. Has not had much urine output, approximately 500 mL, despite 5-6 L of fluid. Creatinine is improving. CK is improving. Nephrology following. Gen: awake, alert HEENT: normocephalic, atraumatic, good hearing acuity, moist mucous membranes Resp: good air exchange, breathing comfortably with no accessory muscle use CVS: good distal perfusion x 4, GI: soft, NTTP, ND : no SPT, no CVAT, adler catheter not present MSK: no pitting edema, no clubbing Neuro: non-focal, moving all extremities Psych: cooperative, euthymic mood Assessment/plan: Acute rhabdomyolysis Acute kidney injury secondary to above Monitor CPK Monitor renal function Monitor urine output target of 200 mL/h Aggressive IV fluid hydration with normal saline 250 mL per hour Nephrology consult Avoid nephrotoxic meds Monitor electrolytes potassium, phosphorus, calcium Bicarb is 25 Alcohol withdrawal syndrome in alcohol dependent patient Acute hepatic toxicity most likely secondary to alcohol abuse and shocked liver from dehydration Elevated liver enzymes also secondary to rhabdomyolysis Elevated lactic acid was likely secondary to dehydration and poor perfusion Again aggressive IV fluid hydration Monitor liver function Avoid hepatotoxic meds Benzos per CIWA scale Seizure precautions Fall precautions Hypertension Controlled Resume labetalol and amlodipine DVT prophylaxis heparin subcu 3 times a day Full code Objective - Vital Signs Vital signs: Vital Signs Temp 98 F 03/04/22 12:00 Pulse 87 03/04/22 12:00 Resp 16 03/04/22 12:02 BP 124/76 03/04/22 12:00 Pulse Ox 98 03/04/22 12:00 FiO2 Intake & Output 03/03/22 03/04/22 03/04/22 18:59 06:59 18:59 Intake Total 1440 Output Total 200 Balance 1240 Weight 83.915 kg 83.915 kg Intake: Oral 1440 Output: Urine 200 Other: Voiding Method Toilet Toilet Urinal Urinal - Labs CBC & Chem 7: 03/04/22 03:24 03/04/22 03:24 Labs: Abnormal Lab Results - Last 24 Hours (Table) 03/03/22 03/03/22 03/03/22 Range/Units 15:00 15:00 15:00 WBC 13.9 H (3.8-10.6) k/uL Hct 53.2 H (39.0-53.0) % Neutrophils # 10.7 H (1.3-7.7) k/uL Monocytes # 1.8 H (0-1.0) k/uL PT 12.1 H (9.0-12.0) sec APTT 34.5 H (22.0-30.0) sec Sodium (137-145) mmol/L Carbon Dioxide (22-30) mmol/L BUN (9-20) mg/dL Creatinine (0.66-1.25) mg/dL Glucose (74-99) mg/dL Plasma Lactic Acid Navdeep 2.9 H* (0.7-2.0) mmol/L Calcium (8.4-10.2) mg/dL Phosphorus (2.5-4.5) mg/dL AST (17-59) U/L ALT (4-49) U/L Creatine Kinase (55-170) U/L Troponin I (0.000-0.034) ng/mL Total Protein (6.3-8.2) g/dL Albumin (3.5-5.0) g/dL Urine Protein (Negative) Urine Blood (Negative) Urine RBC (0-5) /hpf Amorphous Sediment (None) /hpf Urine Bacteria (None) /hpf Urine Mucus (None) /hpf U Benzodiazepines Scrn (NotDetected) 03/03/22 03/03/22 03/03/22 Range/Units 15:54 15:54 20:28 WBC (3.8-10.6) k/uL Hct (39.0-53.0) % Neutrophils # (1.3-7.7) k/uL Monocytes # (0-1.0) k/uL PT (9.0-12.0) sec APTT (22.0-30.0) sec Sodium 131 L (137-145) mmol/L Carbon Dioxide (22-30) mmol/L BUN (9-20) mg/dL Creatinine 2.24 H (0.66-1.25) mg/dL Glucose 117 H (74-99) mg/dL Plasma Lactic Acid Navdeep 2.2 H* (0.7-2.0) mmol/L Calcium (8.4-10.2) mg/dL Phosphorus (2.5-4.5) mg/dL AST 1589 H (17-59) U/L ALT 420 H (4-49) U/L Creatine Kinase [id number] H* (55-170) U/L Troponin I 0.261 H* (0.000-0.034) ng/mL Total Protein (6.3-8.2) g/dL Albumin (3.5-5.0) g/dL Urine Protein (Negative) Urine Blood (Negative) Urine RBC (0-5) /hpf Amorphous Sediment (None) /hpf Urine Bacteria (None) /hpf Urine Mucus (None) /hpf U Benzodiazepines Scrn (NotDetected) 03/03/22 03/04/22 03/04/22 Range/Units 23:30 01:28 03:24 WBC 11.3 H (3.8-10.6) k/uL Hct (39.0-53.0) % Neutrophils # 8.9 H (1.3-7.7) k/uL Monocytes # 1.1 H (0-1.0) k/uL PT (9.0-12.0) sec APTT (22.0-30.0) sec Sodium (137-145) mmol/L Carbon Dioxide (22-30) mmol/L BUN (9-20) mg/dL Creatinine (0.66-1.25) mg/dL Glucose (74-99) mg/dL Plasma Lactic Acid Navdeep 2.4 H* (0.7-2.0) mmol/L Calcium (8.4-10.2) mg/dL Phosphorus (2.5-4.5) mg/dL AST (17-59) U/L ALT (4-49) U/L Creatine Kinase (55-170) U/L Troponin I (0.000-0.034) ng/mL Total Protein (6.3-8.2) g/dL Albumin (3.5-5.0) g/dL Urine Protein 2+ H (Negative) Urine Blood Large H (Negative) Urine RBC 9 H (0-5) /hpf Amorphous Sediment Rare H (None) /hpf Urine Bacteria Rare H (None) /hpf Urine Mucus Rare H (None) /hpf U Benzodiazepines Scrn Detected H (NotDetected) 03/04/22 03/04/22 03/04/22 Range/Units 03:24 03:24 07:42 WBC (3.8-10.6) k/uL Hct (39.0-53.0) % Neutrophils # (1.3-7.7) k/uL Monocytes # (0-1.0) k/uL PT (9.0-12.0) sec APTT (22.0-30.0) sec Sodium 126 L (137-145) mmol/L Carbon Dioxide 21 L (22-30) mmol/L BUN 24 H (9-20) mg/dL Creatinine 3.44 H (0.66-1.25) mg/dL Glucose (74-99) mg/dL Plasma Lactic Acid Navdeep (0.7-2.0) mmol/L Calcium 7.7 L (8.4-10.2) mg/dL Phosphorus 5.9 H (2.5-4.5) mg/dL AST 1070 H (17-59) U/L ALT 294 H (4-49) U/L Creatine Kinase 97917 H* (55-170) U/L Troponin I 0.236 H* (0.000-0.034) ng/mL Total Protein 5.0 L (6.3-8.2) g/dL Albumin 2.6 L (3.5-5.0) g/dL Urine Protein (Negative) Urine Blood (Negative) Urine RBC (0-5) /hpf Amorphous Sediment (None) /hpf Urine Bacteria (None) /hpf Urine Mucus (None) /hpf U Benzodiazepines Scrn (NotDetected)
--- NOTE | 2022-03-04 12:29 | CONS ---
CONSULTATION CHIEF COMPLAINT: Elevated troponin. This is a 31-year-old gentleman who presented to hospital with alcohol intoxication. He was drunk, was on the floor for quite some time, was passed out and was brought in. His blood pressures were initially elevated. The CPKs are extremely high at 86,588. AST and ALT are elevated and the troponin was mildly elevated, due to which Cardiology had been consulted. His urine drug screen was negative except for benzodiazepines. His alcohol level was low. Labs showed a sodium of 126, potassium 4.6. BUN is 24, creatinine is 3.4. An EKG showed normal sinus rhythm without significant ST-T wave changes. His CT scan of the chest was negative for pulmonary embolism. Patient's elevated troponin is related to the acute renal failure, which in turn is probably related to the rhabdomyolysis in a patient who was drunk and was on the floor for quite some time and has acute renal failure. PAST MEDICAL HISTORY: Significant for hypertension. MEDICATIONS: Medications at home include Norvasc 10 daily and labetalol 100 b.i.d. ALLERGIES: CHARTED. FAMILY HISTORY: Negative for premature coronary artery disease. SOCIAL HISTORY: Significant for smoking and ETOH abuse. There is no history of drug abuse. REVIEW OF SYSTEMS: HEENT is unremarkable. CARDIAC: As described above. RESPIRATORY: Negative. GI: Negative. GENITOURINARY: Significant for acute renal failure. MUSCULOSKELETAL: Significant for rhabdomyolysis. Rest of the system review is not relevant. PHYSICAL EXAMINATION: Comfortable at rest. Vital signs are stable. There is no jugular venous distention. Carotid upstroke is normal. There is no bruit. Chest exam reveals good air entry bilaterally. Heart exam reveals first and second heart sounds. No gallop. No murmur. No rub. Abdomen is soft, nontender. Examination of extremities did not reveal any edema. Peripheral pulses are palpable. LABS: Potassium is 4.6, creatinine is 3.4. AST and ALT are elevated. CPK is elevated. Troponin is 0.2 and 0.2. ASSESSMENT: 1. Troponin elevation secondary to acute renal failure. Patient did not have myocardial infarction. 2. History of alcohol abuse and loss of consciousness with rhabdomyolysis. 3. Acute renal failure. PLAN: Continue with supportive care. I will obtain a 2D echo to assess LV function and wall motion. He does not require any other workup at this stage. MMODL / IJN: [id number] /
--- NOTE | 2022-03-04 13:01 | CA ---
Transthoracic Echo Report Name: Delta Jaffe Age: 31 Gender: M : 1990 Exam Date: 03/04/2022 09:01 Exam Location: [facility] Ht (in): 67 Wt (lb): 185 Ordering Physician: Eliseo Francisco MD Attending/Referring Phys: Putty Glazer Julee Avila RDCS Procedure CPT: Indications: elevated trops Cardiac Hx: No cardiac hx Technical Quality: Good Contrast 1: Total Dose (mL): Contrast 2: Total Dose (mL): MEASUREMENTS (Male / Female) Normal Values 2D ECHO LV Diastolic Diameter PLAX 4.5 cm 4.2 - 5.9 / 3.9 - 5.3 cm LV Systolic Diameter PLAX 2.5 cm IVS Diastolic Thickness 1.0 cm 0.6 - 1.0 / 0.6 - 0.9 cm LVPW Diastolic Thickness 1.1 cm 0.6 - 1.0 / 0.6 - 0.9 cm LV Relative Wall Thickness 0.5 RV Internal Dim ED PLAX 2.3 cm LA Volume 27.3 cm??? 18 - 58 / 22 - 52 cm??? M-MODE Aortic Root Diameter MM 3.2 cm LA Systolic Diameter MM 2.4 cm LA Ao Ratio MM 0.7 MV E Point Septal Separation 0.5 cm AV Cusp Separation MM 2.0 cm DOPPLER AV Peak Velocity 99.9 cm/s AV Peak Gradient 4.0 mmHg MV Area PHT 6.8 cm??? Mitral E Point Velocity 100.5 cm/s Mitral A Point Velocity 71.3 cm/s Mitral E to A Ratio 1.4 MV Deceleration Time 111.4 ms MV E' Velocity 9.7 cm/s Mitral E to MV E' Ratio 10.4 TR Peak Velocity 118.9 cm/s TR Peak Gradient 5.7 mmHg Right Ventricular Systolic Press 10.7 mmHg FINDINGS Left Ventricle Normal Left ventricular size, wall thickness, systolic function with no obvious regional wall motion abnormalities. Normal Left ventricular diastolic filling pattern. Normal Left ventricular size, wall thickness, systolic function with no obvious regional wall motion abnormalities. Normal Left ventricular diastolic filling pattern. Left ventricular ejection fraction is estimated at 55-60_ %. Right Ventricle The right ventricle is normal in size and function. Right Atrium The right atrium is normal in size. Left Atrium The left atrium is normal in size. Mitral Valve Structurally normal mitral valve without significant stenosis or prolapse. There is trace mitral regurgitation. Aortic Valve Structurally normal aortic valve without significant sclerosis or stenosis. There is no aortic regurgitation. Tricuspid Valve Structurally normal tricuspid valve without significant stenosis. Pulmonary artery systolic pressure is normal. Trace tricuspid regurgitation. Pulmonic Valve Structurally normal pulmonic valve without significant stenosis. There is no pulmonic regurgitation. Pericardium Normal pericardium without effusion. Aorta Normal aortic root dimension. CONCLUSIONS Normal LV size and systolic function. Minimal mitral and tricuspid insufficiency. No pulmonary hypertension. No pericardial effusion Previewed by: Dr. Blake Waggoner MD (Electronically Signed) Final Date: 04 March 2022 13:00
[2022-03-04 17:52] LABS: African American GFR (CKD) 24.2 (60.0-200.0); Anion Gap 18.3 mmol/L (10.00-18.00); Blood Urea Nitrogen 24.2 mg/dL (9.0-27.0); Carbon Dioxide 14.7 mmol/L (20.0-27.5); Non-African American GFR(CKD) 20.9 (60.0-200.0); Potassium 4.9 mmol/L (3.5-5.5)
[2022-03-04] MEDS: DEXTROSE 5% IN WATER 1,000 ML with SODIUM BICARB (1 MEQ/ML) 150 ML IV SCH (22:41)
[2022-03-05] MEDS: LORazepam 2 MG/ML INJ IV PRN ×7 (04:27→19:50)
[2022-03-05] MEDS: DEXTROSE 5% IN WATER 1,000 ML with SODIUM BICARB (1 MEQ/ML) 150 ML IV SCH ×2 (06:15→15:57)
[2022-03-05] MEDS: THIAMINE 100 MG TAB PO SCH ×2 (06:15→15:55)
[2022-03-05] MEDS: PANTOPRAZOLE 40 MG TABLET PO SCH (06:15)
[2022-03-05 06:45] LABS: Basophils % (A) 0 %; Eosinophils # (A) 0.1 k/uL (0-0.7); Eosinophils % (A) 1 %; HGB 12.5 gm/dL (13.0-17.5); Lymphocytes % (A) 11 %; MCV 96.7 fL (80.0-100.0); Mean Platelet Volume 7.6; Monocytes # (A) 0.5 k/uL (0-1.0); Monocytes % (A) 6 %; Neutrophils # (A) 7.6 k/uL (1.3-7.7); Neutrophils % (A) 81 %; Platelet Count 198 k/uL (150-450); RBC 4.04 m/uL (4.30-5.90); WBC 9.4 k/uL (3.8-10.6)
[2022-03-05 06:54] LABS: Magnesium 1.4 mg/dL (1.6-2.3)
[2022-03-05] MEDS: LABETALOL 100 MG TAB PO SCH ×2 (08:46→19:47)
[2022-03-05] MEDS: HEPARIN SODIUM,PORCINE/PF 5,000 UNIT/0.5 ML SYRINGE SQ SCH ×3 (08:46→23:37)
[2022-03-05] MEDS: PREGABALIN 25 MG CAP PO SCH ×2 (08:46→19:47)
[2022-03-05] MEDS: amLODIPine 10 MG TAB PO SCH (08:46)
--- NOTE | 2022-03-05 09:36 | P.PN ---
Subjective Patient is seen in follow-up for acute kidney injury. Creatinine 3.7 yesterday. Has been voiding and states that urine is dark. No vomiting or diarrhea. Oral intake fair. Vital signs are stable. General: Awake. No acute distress. HEENT: Head exam is unremarkable. LUNGS: Breath sounds decreased. HEART: Rate and Rhythm are regular. ABDOMEN: Soft, no distention. EXTREMITITES: No edema. Objective - Vital Signs Vital signs: Vital Signs Temp 98.7 F 03/05/22 08:00 Pulse 93 03/05/22 08:00 Resp 18 03/05/22 08:00 BP 117/79 03/05/22 04:00 Pulse Ox 97 03/05/22 08:00 FiO2 Intake & Output 03/04/22 03/05/22 03/05/22 18:59 06:59 18:59 Output Total 250 375 Balance -250 -375 Output: Urine 250 375 Other: Voiding Method Toilet Toilet Urinal Urinal - Labs CBC & Chem 7: 03/05/22 06:30 03/04/22 10:45 Labs: Abnormal Lab Results - Last 24 Hours (Table) 03/04/22 03/04/22 03/05/22 Range/Units 07:42 10:45 06:30 RBC 4.04 L (4.30-5.90) m/uL Hgb 12.5 L (13.0-17.5) gm/dL Sodium 131 L (135-145) mmol/L Carbon Dioxide 14.7 L (20.0-27.5) mmol/L Anion Gap 18.30 H (10.00-18.00) mmol/L Creatinine 3.7 H (0.6-1.5) mg/dL Est GFR (CKD-EPI)AfAm 24.2 L (60.0-200.0) Est GFR (CKD-EPI)NonAf 20.9 L (60.0-200.0) Calcium 8.0 L (8.7-10.3) mg/dL Magnesium (1.6-2.3) mg/dL Creatine Kinase (55-170) U/L Troponin I 0.236 H* (0.000-0.034) ng/mL 03/05/22 Range/Units 06:30 RBC (4.30-5.90) m/uL Hgb (13.0-17.5) gm/dL Sodium (135-145) mmol/L Carbon Dioxide (20.0-27.5) mmol/L Anion Gap (10.00-18.00) mmol/L Creatinine (0.6-1.5) mg/dL Est GFR (CKD-EPI)AfAm (60.0-200.0) Est GFR (CKD-EPI)NonAf (60.0-200.0) Calcium (8.7-10.3) mg/dL Magnesium 1.4 L (1.6-2.3) mg/dL Creatine Kinase 91409 H* (55-170) U/L Troponin I (0.000-0.034) ng/mL Assessment and Plan Plan: Assessment: 1. Acute kidney injury secondary to ATN secondary to rhabdomyolysis. Unknown baseline renal function. Creatinine was 2.24 on admission and up at 3.7 yesterday. 2. Rhabdomyolysis secondary to fall. CK levels trending down. 3. Alcohol abuse. 4. Hypovolemic hyponatremia. Improved. 5. Metabolic acidosis secondary to acute kidney injury and IV fluids. 6. Hypomagnesemia from poor intake and alcohol abuse. 7. Hyperphosphatemia secondary to acute kidney injury. Plan: Maintain bicarb drip. Will change normal saline once acidosis resolves. Replace magnesium. Avoid nephrotoxins. Strict I's and O's. Follow-up morning labs. Repeat CK level in the morning.
[2022-03-05 10:04] LABS: Calcium 7.5 mg/dL (8.4-10.2); Potassium 4.1 mmol/L (3.5-5.1)
[2022-03-05] MEDS: MAGNESIUM SULFATE-D5W PMX 1 GM in DEXTROSE/WATER 1 100ML.BAG IVPB SCH ×2 (10:09→11:25)
--- NOTE | 2022-03-05 10:12 | P.PN ---
Subjective Progress Note Date: 03/05/22 Principal diagnosis: Right upper extremity numbness Patient seen and examined as a follow-up with complaints of right upper extremity pain, numbness and tingling. Patient had a venous Doppler of the right upper extremity showing superficial venous thrombosis at the venous perfo rator. He states his numbness and tingling has improved. He still having pain in the upper arm and shoulder region along with swelling. Objective - Vital Signs Vital signs: Vital Signs Temp 98.7 F 03/05/22 08:00 Pulse 93 03/05/22 08:00 Resp 18 03/05/22 08:00 BP 117/79 03/05/22 04:00 Pulse Ox 97 03/05/22 08:00 FiO2 Intake & Output 03/04/22 03/05/22 03/05/22 18:59 06:59 18:59 Output Total 250 375 Balance -250 -375 Output: Urine 250 375 Other: Voiding Method Toilet Toilet Urinal Urinal - Exam General appearance: The patient is alert, oriented, appears in no acute distress. HET: Head is normocephalic and atraumatic. Pupils are equal and reactive. Neck: Supple without lymphadenopathy. Trachea midline. Extremities: Normal skin color and turgor. Right upper extremity swollen from shoulder to elbow. Lateral part of upper extremity with blistering. He has a palpable radial and ulnar pulse. Normal strength and tone. He is able to move his fingers. He does have difficulty with elevation of right arm and rotation of the shoulder due to pain. Neurological: No focal deficits. Alert and oriented 3. Patient is visibly shaking/tremors. - Labs CBC & Chem 7: 03/05/22 06:30 03/05/22 06:30 Labs: Abnormal Lab Results - Last 24 Hours (Table) 03/04/22 03/05/22 03/05/22 Range/Units 10:45 06:30 06:30 RBC 4.04 L (4.30-5.90) m/uL Hgb 12.5 L (13.0-17.5) gm/dL Sodium 131 L (135-145) mmol/L Carbon Dioxide 14.7 L (20.0-27.5) mmol/L Anion Gap 18.30 H (10.00-18.00) mmol/L BUN (9-20) mg/dL Creatinine 3.7 H (0.6-1.5) mg/dL Est GFR (CKD-EPI)AfAm 24.2 L (60.0-200.0) Est GFR (CKD-EPI)NonAf 20.9 L (60.0-200.0) Calcium 8.0 L (8.7-10.3) mg/dL Magnesium 1.4 L (1.6-2.3) mg/dL Creatine Kinase 34552 H* (55-170) U/L 03/05/22 Range/Units 06:30 RBC (4.30-5.90) m/uL Hgb (13.0-17.5) gm/dL Sodium 128 L (135-145) mmol/L Carbon Dioxide 19 L (20.0-27.5) mmol/L Anion Gap (10.00-18.00) mmol/L BUN 38 H (9-20) mg/dL Creatinine 5.88 H (0.6-1.5) mg/dL Est GFR (CKD-EPI)AfAm (60.0-200.0) Est GFR (CKD-EPI)NonAf (60.0-200.0) Calcium 7.5 L (8.7-10.3) mg/dL Magnesium (1.6-2.3) mg/dL Creatine Kinase (55-170) U/L Assessment and Plan Assessment: 1. Right upper extremity pain and numbness 2. Right upper extremity injury 3. Fall 4. Alcohol Intoxication and abuse 5. Right hip pain 6. Elevated troponins 7. Elevated creatinine kinase, rhabdomyolysis Plan: 1. Right upper extremity venous duplex ordered and reviewed 2. Await recommendations from orthopedics 3. Continue medical management 4. Elevate right upper extremity, may apply compression stocking to RUE 5. There is no indication for any vascular surgical intervention. Thank you for this consultation, we will sign off at this time. The impression and plan of care has been dictated as directed. Dr. Chance I performed a history and examination of this patient, discussed the same with the dictator. I agree with the dictator's note ,documented as a scribe. Any additional findings or plans will be noted.
--- NOTE | 2022-03-05 10:54 | P.PN ---
Subjective This is a 31-year-old male with a past medical history of alcohol abuse, hypertension. 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 We have been consulted for elevated troponin. Patient presents emergency department from [place] with complaints of right arm and right hip numbness/tingling. Apparently, the patient drank increased amounts of alcohol on Wednesday and last remembers coming out of his bathroom. He woke up on 03/03 on the floor. He is unsure how long he was there. He states that he was experiencing right upper extremity and hip pa in. He was admitted with Rhabdomyolysis and Acute kidney injury Echocardiogram revealed EF of 5560%, trace mitral regurgitation, trace tricuspid regurgitation. 03/05/2022 Patient seen and examined at bedside, no acute distress. He denies any chest pain or shortness of breath. His renal function continues to worsen. He mostly endorses withdrawal symptoms with tremors and hallucinations. Vital signs are stable. Blood pressure 117/79, heart rate 88, afebrile, oxygen saturation 97% on room air GENERAL: Well-appearing, well-nourished and in no acute distress. NECK: Supple without JVD or thyromegaly. LUNGS: Breath sounds clear to auscultation bilaterally. Respiration equal and unlabored. No wheezes, rales or rhonchi. HEART: Regular rate and rhythm without murmurs, rubs or gallops. S1 and S2 heard. EXTREMITIES: Normal range of motion, no edema. No clubbing or cyanosis. Peripheral pulses intact. ASSESSMENT Elevated troponin secondary to acute kidney injury Acute kidney injury Alcohol abuse with loss of consciousness Rhabdomyolysis History of hypertension Right upper extremity pain and numbness Status post fall at home PLAN Echocardiogram revealed EF of 5560%, trace mitral regurgitation, trace tricuspid regurgitation. From cardiology perspective, no further inpatient workup at this time is indicated. We will follow the patient as needed. Please reconsult if needed. Nurse Practitioner note has been reviewed, I agree with a documented findings and plan of care. Patient was seen and examined. Objective - Vital Signs Vital signs: Vital Signs Temp 98 F 03/04/22 12:00 Pulse 87 03/04/22 12:00 Resp 16 03/04/22 12:02 BP 124/76 03/04/22 12:00 Pulse Ox 98 03/04/22 12:00 FiO2 Intake & Output 03/03/22 03/04/2222 18:59 06:59 18:59 Intake Total 1440 Output Total 200 Balance 1240 Weight 83.915 kg 83.915 kg Intake: Oral 1440 Output: Urine 200 Other: Voiding Method Toilet Toilet Urinal Urinal - Labs CBC & Chem 7: 03/05/22 06:30 03/05/22 06:30 Labs: Abnormal Lab Results - Last 24 Hours (Table) 03/03/22 03/03/22 03/03/22 Range/Units 15:00 15:00 15:00 WBC 13.9 H (3.8-10.6) k/uL Hct 53.2 H (39.0-53.0) % Neutrophils # 10.7 H (1.3-7.7) k/uL Monocytes # 1.8 H (0-1.0) k/uL PT 12.1 H (9.0-12.0) sec APTT 34.5 H (22.0-30.0) sec Sodium (137-145) mmol/L Carbon Dioxide (22-30) mmol/L BUN (9-20) mg/dL Creatinine (0.66-1.25) mg/dL Glucose (74-99) mg/dL Plasma Lactic Acid Navdeep 2.9 H* (0.7-2.0) mmol/L Calcium (8.4-10.2) mg/dL Phosphorus (2.5-4.5) mg/dL AST (17-59) U/L ALT (4-49) U/L Creatine Kinase (55-170) U/L Troponin I (0.000-0.034) ng/mL Total Protein (6.3-8.2) g/dL Albumin (3.5-5.0) g/dL Urine Protein (Negative) Urine Blood (Negative) Urine RBC (0-5) /hpf Amorphous Sediment (None) /hpf Urine Bacteria (None) /hpf Urine Mucus (None) /hpf U Benzodiazepines Scrn (NotDetected) 03/03/22 03/03/22 03/03/22 Range/Units 15:54 15:54 20:28 WBC (3.8-10.6) k/uL Hct (39.0-53.0) % Neutrophils # (1.3-7.7) k/uL Monocytes # (0-1.0) k/uL PT (9.0-12.0) sec APTT (22.0-30.0) sec Sodium 131 L (137-145) mmol/L Carbon Dioxide (22-30) mmol/L BUN (9-20) mg/dL Creatinine 2.24 H (0.66-1.25) mg/dL Glucose 117 H (74-99) mg/dL Plasma Lactic Acid Navdeep 2.2 H* (0.7-2.0) mmol/L Calcium (8.4-10.2) mg/dL Phosphorus (2.5-4.5) mg/dL AST 1589 H (17-59) U/L ALT 420 H (4-49) U/L Creatine Kinase 956109 H* (55-170) U/L Troponin I 0.261 H* (0.000-0.034) ng/mL Total Protein (6.3-8.2) g/dL Albumin (3.5-5.0) g/dL Urine Protein (Negative) Urine Blood (Negative) Urine RBC (0-5) /hpf Amorphous Sediment (None) /hpf Urine Bacteria (None) /hpf Urine Mucus (None) /hpf U Benzodiazepines Scrn (NotDetected) 03/03/22 03/04/22 03/04/22 Range/Units 23:30 01:28 03:24 WBC 11.3 H (3.8-10.6) k/uL Hct (39.0-53.0) % Neutrophils # 8.9 H (1.3-7.7) k/uL Monocytes # 1.1 H (0-1.0) k/uL PT (9.0-12.0) sec APTT (22.0-30.0) sec Sodium (137-145) mmol/L Carbon Dioxide (22-30) mmol/L BUN (9-20) mg/dL Creatinine (0.66-1.25) mg/dL Glucose (74-99) mg/dL Plasma Lactic Acid Navdeep 2.4 H* (0.7-2.0) mmol/L Calcium (8.4-10.2) mg/dL Phosphorus (2.5-4.5) mg/dL AST (17-59) U/L ALT (4-49) U/L Creatine Kinase (55-170) U/L Troponin I (0.000-0.034) ng/mL Total Protein (6.3-8.2) g/dL Albumin (3.5-5.0) g/dL Urine Protein 2+ H (Negative) Urine Blood Large H (Negative) Urine RBC 9 H (0-5) /hpf Amorphous Sediment Rare H (None) /hpf Urine Bacteria Rare H (None) /hpf Urine Mucus Rare H (None) /hpf U Benzodiazepines Scrn Detected H (NotDetected) 03/04/22 03/04/22 03/04/22 Range/Units 03:24 03:24 07:42 WBC (3.8-10.6) k/uL Hct (39.0-53.0) % Neutrophils # (1.3-7.7) k/uL Monocytes # (0-1.0) k/uL PT (9.0-12.0) sec APTT (22.0-30.0) sec Sodium 126 L (137-145) mmol/L Carbon Dioxide 21 L (22-30) mmol/L BUN 24 H (9-20) mg/dL Creatinine 3.44 H (0.66-1.25) mg/dL Glucose (74-99) mg/dL Plasma Lactic Acid Navdeep (0.7-2.0) mmol/L Calcium 7.7 L (8.4-10.2) mg/dL Phosphorus 5.9 H (2.5-4.5) mg/dL AST 1070 H (17-59) U/L ALT 294 H (4-49) U/L Creatine Kinase 17692 H* (55-170) U/L Troponin I 0.236 H* (0.000-0.034) ng/mL Total Protein 5.0 L (6.3-8.2) g/dL Albumin 2.6 L (3.5-5.0) g/dL Urine Protein (Negative) Urine Blood (Negative) Urine RBC (0-5) /hpf Amorphous Sediment (None) /hpf Urine Bacteria (None) /hpf Urine Mucus (None) /hpf U Benzodiazepines Scrn (NotDetected)
--- NOTE | 2022-03-05 12:51 | P.PN ---
Subjective Progress Note Date: 03/05/22 Patient stated that he is urinating more. Patient states that he still has some hand tremors. Patient was counseled on alcohol cessation. Objective - Vital Signs Vital signs: Vital Signs Temp 98.8 F 03/05/22 11:59 Pulse 91 03/05/22 11:59 Resp 18 03/05/22 11:59 BP 130/82 03/05/22 11:59 Pulse Ox 94 L 03/05/22 11:59 FiO2 Intake & Output 03/04/22 03/05/22 03/05/22 18:59 06:59 18:59 Output Total 250 375 350 Balance -250 -375 -350 Output: Urine 250 375 Stool 350 Other: Voiding Method Toilet Toilet Toilet Urinal Urinal Urinal # Voids 1 - Exam General examination - Alert and Oriented 3 in NAD Heart - + S1S2 no murmurs Lungs - Clear to auscultation Abdomen soft NT ND +ve BS Extremities - No edema, bilateral hand tremors DIRECTOR TRIAL - Moving all 4 extremities spontaneously Psych - Calm and cooperative - Labs CBC & Chem 7: 03/05/22 06:30 03/05/22 06:30 Labs: Abnormal Lab Results - Last 24 Hours (Table) 03/04/22 03/05/22 03/05/22 Range/Units 10:45 06:30 06:30 RBC 4.04 L (4.30-5.90) m/uL Hgb 12.5 L (13.0-17.5) gm/dL Sodium 131 L (135-145) mmol/L Carbon Dioxide 14.7 L (20.0-27.5) mmol/L Anion Gap 18.30 H (10.00-18.00) mmol/L BUN (9-20) mg/dL Creatinine 3.7 H (0.6-1.5) mg/dL Est GFR (CKD-EPI)AfAm 24.2 L (60.0-200.0) Est GFR (CKD-EPI)NonAf 20.9 L (60.0-200.0) Calcium 8.0 L (8.7-10.3) mg/dL Magnesium 1.4 L (1.6-2.3) mg/dL Creatine Kinase 37356 H* (55-170) U/L 03/05/22 Range/Units 06:30 RBC (4.30-5.90) m/uL Hgb (13.0-17.5) gm/dL Sodium 128 L (135-145) mmol/L Carbon Dioxide 19 L (20.0-27.5) mmol/L Anion Gap (10.00-18.00) mmol/L BUN 38 H (9-20) mg/dL Creatinine 5.88 H (0.6-1.5) mg/dL Est GFR (CKD-EPI)AfAm (60.0-200.0) Est GFR (CKD-EPI)NonAf (60.0-200.0) Calcium 7.5 L (8.7-10.3) mg/dL Magnesium (1.6-2.3) mg/dL Creatine Kinase (55-170) U/L Assessment and Plan Assessment: #Acute rhabdomyolysis secondary to prolonged time on floor ( #Acute kidney injury secondary to above #Metabolic acidosis secondary to above CK so significantly elevated but trending down Resume IV fluids at 150 mL an hour Trend CK Renal function is worsening Patient states that he is starting to urinate more Patient on bicarb drip. Bicarb this morning is 19 Nephrology on board #Right arm numbness -Patient states that he was drinking and passed out and when he regained consciousness he was lying on his right side. This is likely patient's etiology. -Right upper extremity ultrasound shows superficial thrombophlebitis. Patient seen by vascular surgery recommends elevating the hand and warm compression -Orthopedic surgery also consulted in the ED -Improving #Elevated troponin -Likely due to rhabdomyolysis -Cardiology recommended no further workup and have signed off #Alcohol withdrawal syndrome in alcohol dependent patient -Benzos per CIWA scale Seizure precautions Fall precautions Patient will return to [facility] once medically stable #Elevated LFTs likely due to rhabdomyolysis versus alcoholic hepatitis and fatty liver -Resume IV fluids -Trend LFTs #Hypertension Controlled Resume labetalol and amlodipine DVT prophylaxis heparin subcu 3 times a day Full code
--- NOTE | 2022-03-05 13:18 | P.CNOR ---
History of Present Illness - [facility] Consult date: 03/05/22 Consult reason: other History of present illness: Patient is a 31-year-old male seen at bedside this afternoon in consultation for right shoulder pain and swelling as well as right hip pain and swelling. He was admitted through the emergency department on 03/03/2022. He has a history of of alcohol abuse presented to the emergency department from [place]. He initially reported having numbness in his right arm as well as right hip pain. He states that the night prior he got significantly intoxicated and found himself on the floor in the morning. He was unsure how he got on the floor but assumed that he fell. He is unsure how long he had been unconscious for. He states he continues to have right shoulder pain and swelling but the numbness and tingling have improved. He continues to have right hip pain as well. He has no constant numbness/tingling or radicular symptoms. He has pain with range of motion of the right shoulder as well as the right hip. He denies calf pain. He denies fever, chills, chest pain or shortness of breath. He's had studies including x-rays of the right shoulder and hip which show no fractures. Ultrasound of the right upper extremity showed a superficial venous thrombosis. CT of the head and neck show no fractures or instability. He is being followed by nephrology as well due to acute kidney injury. Review of Systems All systems: negative Constitutional: Denies chills, Denies fever Eyes: denies blurred vision, denies pain Ears, nose, mouth and throat: Denies headache, Denies sore throat Cardiovascular: Denies chest pain, Denies shortness of breath Respiratory: Denies cough Gastrointestinal: Denies abdominal pain, Denies diarrhea, Denies nausea, Denies vomiting Musculoskeletal: Denies myalgias Integumentary: Denies pruritus, Denies rash Neurological: Denies numbness, Denies weakness Psychiatric: Denies anxiety, Denies depression Endocrine: Denies fatigue, Denies weight change Past Medical History Past Medical History: Hypertension History of Any Multi-Drug Resistant Organisms: None Reported Past Surgical History: No Surgical Hx Reported Past Anesthesia/Blood Transfusion Reactions: No Reported Reaction Past Psychological History: Anxiety, Bipolar, Depression Smoking Status: Current some day smoker Past Alcohol Use History: Daily Past Drug Use History: Marijuana - Past Family History Family Family Medical History: No Reported History Medications and Allergies Home Medications Medication Instructions Recorded Confirmed Type Labetalol [Trandate] 100 mg PO BID 03/03/22 03/03/22 History amLODIPine [Norvasc] 10 mg PO DAILY 03/03/22 03/03/22 History Allergies Allergy/AdvReac Type Severity Reaction Status Date / Time No Known Allergies Allergy Verified 03/03/22 17:00 Physical Examination Inspection of the right shoulder and upper extremity shows global edema at the right shoulder. There is no deformity. There is some swelling in the right upper extremity. There is some small listers in the posterior lateral aspect of the right shoulder likely secondary to edema/swelling. Mildly tender in the right shoulder and upper arm. It is not hot to touch. Neurologically motor is fully intact of bicep, tricep and finger intrinsics. Deltoid is grossly intact however reproduces pain with resisted range of motion. Sensation to light touch is intact throughout the right upper extremity. There Is a 2+ radial pulse. Less than 2 second capillary refill in all digits. He has no pain with range of motion of the elbow, wrist or hand. Inspection of the right hip and lower extremity shows no deformity. There is some edema and small blistering at the right hip as well. He has pain with active range of motion with hip flexion. There is minimal pain with passive range of motion in hip flexion to 60. There is no groin pain with internal/external rotation. He has no pain with range of motion of the knee, ankle or foot. Motor and sensation is intact throughout the right lower extremity. Calf is soft nontender. 2+ dorsalis pedis pulse and less than 2 second capillary refill is present Results - Labs Labs: Abnormal Lab Results - Last 24 Hours (Table) 03/04/22 03/05/22 03/05/22 Range/Units 10:45 06:30 06:30 RBC 4.04 L (4.30-5.90) m/uL Hgb 12.5 L (13.0-17.5) gm/dL Sodium 131 L (135-145) mmol/L Carbon Dioxide 14.7 L (20.0-27.5) mmol/L Anion Gap 18.30 H (10.00-18.00) mmol/L BUN (9-20) mg/dL Creatinine 3.7 H (0.6-1.5) mg/dL Est GFR (CKD-EPI)AfAm 24.2 L (60.0-200.0) Est GFR (CKD-EPI)NonAf 20.9 L (60.0-200.0) Calcium 8.0 L (8.7-10.3) mg/dL Magnesium 1.4 L (1.6-2.3) mg/dL Creatine Kinase 19579 H* (55-170) U/L 03/05/22 Range/Units 06:30 RBC (4.30-5.90) m/uL Hgb (13.0-17.5) gm/dL Sodium 128 L (135-145) mmol/L Carbon Dioxide 19 L (20.0-27.5) mmol/L Anion Gap (10.00-18.00) mmol/L BUN 38 H (9-20) mg/dL Creatinine 5.88 H (0.6-1.5) mg/dL Est GFR (CKD-EPI)AfAm (60.0-200.0) Est GFR (CKD-EPI)NonAf (60.0-200.0) Calcium 7.5 L (8.7-10.3) mg/dL Magnesium (1.6-2.3) mg/dL Creatine Kinase (55-170) U/L H & H 03/03/22 03/04/22 03/05/22 Range/Units 15:00 03:24 06:30 Hgb 17.1 13.9 D 12.5 L (13.0-17.5) gm/dL Hct 53.2 H 44.2 39.0 (39.0-53.0) % Coagulation 03/03/22 Range/Units 15:00 INR 1.1 (<1.2) Result Diagrams: 03/05/22 06:30 03/05/22 06:30 - Diagnostic results Shoulder x-ray: report reviewed, image reviewed Hip x-ray: report reviewed, image reviewed CT scan - cervical: report reviewed Assessment and Plan (1) Right shoulder pain Narrative/Plan: His signs and symptoms are likely secondary to neuropraxia and rhabdomyolysis from the stationary position he was lying in after being intoxicated for an extended period of time. His neurological symptoms are improving and appears to be intact with motor and sensation. We will order MRI of the right shoulder and hip due to the continued edema/swelling and pain. Will continue to follow, review his findings and make further recommendations as appropriate. Current Visit: Yes Status: Acute Priority: Medium Code(s): M25.511 - PAIN IN RIGHT SHOULDER SNOMED Code(s): 67146407 (2) Right hip pain Current Visit: Yes Status: Acute Priority: Medium Code(s): M25.551 - PAIN IN RIGHT HIP SNOMED Code(s): 22707267 (3) Rhabdomyolysis Current Visit: Yes Status: Acute Priority: Medium Code(s): M62.82 - RHABDOMYOLYSIS SNOMED Code(s): 174099784 Time with Patient: Less than 30
[2022-03-05] MEDS: ACETAMINOPHEN TAB 325 MG TAB PO PRN (15:52)
[2022-03-05 17:29] LABS: Calcium 7.8 mg/dL (8.4-10.2); Magnesium 1.9 mg/dL (1.6-2.3); Potassium 4.3 mmol/L (3.5-5.1)
[2022-03-05] MEDS: SODIUM CHLORIDE 0.9% 1,000 ML IV SCH (22:00)
[2022-03-06] MEDS: LORazepam 2 MG/ML INJ IV PRN ×5 (02:31→20:12)
[2022-03-06 05:51] LABS: Albumin 2.4 g/dL (3.5-5.0); Calcium 7.7 mg/dL (8.4-10.2); Magnesium 1.7 mg/dL (1.6-2.3); Potassium 4.4 mmol/L (3.5-5.1); Total Bilirubin 0.3 mg/dL (0.2-1.3); Total Protein 4.5 g/dL (6.3-8.2)
[2022-03-06] MEDS: THIAMINE 100 MG TAB PO SCH ×2 (06:20→18:25)
[2022-03-06] MEDS: PANTOPRAZOLE 40 MG TABLET PO SCH (06:20)
[2022-03-06] MEDS: SODIUM CHLORIDE 0.9% 1,000 ML IV SCH ×3 (06:22→12:04)
[2022-03-06] MEDS: HEPARIN SODIUM,PORCINE/PF 5,000 UNIT/0.5 ML SYRINGE SQ SCH ×2 (08:36→18:25)
[2022-03-06] MEDS: LABETALOL 100 MG TAB PO SCH ×2 (08:37→20:12)
[2022-03-06] MEDS: amLODIPine 10 MG TAB PO SCH (08:37)
[2022-03-06] MEDS: PREGABALIN 25 MG CAP PO SCH ×2 (08:37→20:12)
--- NOTE | 2022-03-06 08:47 | P.PN ---
Subjective Progress Note Date: 03/06/22 Principal diagnosis: Right shoulder and right lateral hip pain. Neuropraxia right upper extremity. Rhabdomyolysis. Patient is a 31-year-old male seen at bedside this afternoon in consultation for right shoulder pain and swelling as well as right hip pain and swelling. He was admitted through the emergency department on 03/03/2022. He has a history of of alcohol abuse presented to the emergency department from [facility]. He initially reported having numbness in his right arm as well as right hip pain. He states that the night prior he got significantly intoxicated and found himself on the floor in the morning. He was unsure how he got on the floor but assumed that he fell. He is unsure how long he had been unconscious for. He states he continues to have right shoulder pain and swelling but the numbness and tingling have improved. He continues to have right hip pain as well. He has no constant numbness/tingling or radicular symptoms. He has pain with range of motion of the right shoulder as well as the right hip. He denies calf pain. He denies fever, chills, chest pain or shortness of breath. He's had studies including x-rays of the right shoulder and hip which show no fractures. Ultrasound of the right upper extremity showed a superficial venous thrombosis. CT of the head and neck show no fractures or instability. He is being followed by nephrology as well due to acute kidney injury. 03/06/2022: The patient states that the paresthesias to the upper extremity are improving. He continues to have pain in the right shoulder and upper arm as well as the right lateral hip. MRIs are scheduled for 1:45 today. Vital signs are stable. Objective - Vital Signs Vital signs: Vital Signs Temp 98.6 F 03/06/22 08:13 Pulse 92 03/06/22 08:13 Resp 16 03/06/22 08:13 BP 134/89 03/06/22 08:13 Pulse Ox 90 L 03/06/22 08:13 FiO2 Intake & Output 03/05/22 03/06/22 03/06/22 18:59 06:59 18:59 Intake Total 1080 120 Output Total 600 500 350 Balance 480 -500 -230 Intake: Oral 1080 120 Output: Urine 600 500 350 Other: Voiding Method Toilet Urinal Urinal # Voids 1 - Exam This is a pleasant 31-year-old male in no acute distress. He is alert and oriented 3. Exam of the upper extremity reveals mild soft tissue swelling to the shoulder and anterior chest. Motion is limited secondary to pain to the shoulder. He has improved motion to the elbow, wrist and fingers. Exam the lower extremities reveals tenderness with palpation about the lateral hip in the region of the greater trochanter. No hip irritability with passive internal/external rotation. Neurovascular status to the lower extremities intact. - Labs CBC & Chem 7: 03/05/22 06:30 03/06/22 04:41 Labs: Abnormal Lab Results - Last 24 Hours (Table) 03/05/22 03/05/22 03/05/22 Range/Units 06:30 06:30 16:52 Sodium 128 L 127 L (137-145) mmol/L Chloride 95 L (98-107) mmol/L Carbon Dioxide 19 L (22-30) mmol/L BUN 38 H 39 H (9-20) mg/dL Creatinine 5.88 H 6.37 H (0.66-1.25) mg/dL Glucose 106 H (74-99) mg/dL Calcium 7.5 L 7.8 L (8.4-10.2) mg/dL AST (17-59) U/L ALT (4-49) U/L Creatine Kinase 99133 H* (55-170) U/L Total Protein (6.3-8.2) g/dL Albumin (3.5-5.0) g/dL 03/06/22 03/06/22 Range/Units 04:41 04:41 Sodium 125 L (137-145) mmol/L Chloride 96 L (98-107) mmol/L Carbon Dioxide (22-30) mmol/L BUN 44 H (9-20) mg/dL Creatinine 7.34 H* (0.66-1.25) mg/dL Glucose (74-99) mg/dL Calcium 7.7 L (8.4-10.2) mg/dL AST 534 H (17-59) U/L ALT 217 H (4-49) U/L Creatine Kinase 00100 H* (55-170) U/L Total Protein 4.5 L (6.3-8.2) g/dL Albumin 2.4 L (3.5-5.0) g/dL Assessment and Plan (1) JOHN (acute kidney injury) Current Visit: Yes Status: Acute Code(s): N17.9 - ACUTE KIDNEY FAILURE, UNSPECIFIED SNOMED Code(s): 58102941 (2) Alcohol withdrawal Current Visit: Yes Status: Acute Code(s): F10.939 - ALCOHOL USE, UNSPECIFIED WITH WITHDRAWAL, UNSPECIFIED SNOMED Code(s): 549675058 (3) Neurapraxia of right upper extremity Current Visit: Yes Status: Acute Code(s): S44.91XA - INJURY OF UNSP NERVE AT SHLDR/UP ARM, RIGHT ARM, INIT SNOMED Code(s): 785631056 (4) Rhabdomyolysis Current Visit: Yes Status: Acute Priority: Medium Code(s): M62.82 - RHABDOMYOLYSIS SNOMED Code(s): 868903181 (5) Right hip pain Current Visit: Yes Status: Acute Priority: Medium Code(s): M25.551 - PAIN IN RIGHT HIP SNOMED Code(s): 61657902 (6) Right shoulder pain Current Visit: Yes Status: Acute Priority: Medium Code(s): M25.511 - PAIN IN RIGHT SHOULDER SNOMED Code(s): 44896310 Plan: The clinical findings are discussed with the patient. We will await MRI results and make further recommendations as indicated.
--- NOTE | 2022-03-06 10:25 | P.PN ---
Subjective Patient is seen for follow-up for acute kidney injury secondary to rhabdo my lysis. Oliguric however serum creatinine has rapidly increased. This morning patient complains of weakness and mild shortness of breath. Urine output at 1.1 L for 24 hours Patient is maintained on IV fluids at 1 50 mL an hour He has been hyponatremic which has worsened now with IV fluids No nausea or vomiting Objective - Vital Signs Vital signs: Vital Signs Temp 98.6 F 03/06/22 08:13 Pulse 92 03/06/22 08:13 Resp 16 03/06/22 08:13 BP 134/89 03/06/22 08:13 Pulse Ox 90 L 03/06/22 08:13 FiO2 Intake & Output 03/05/22 03/06/22 03/06/22 18:59 06:59 18:59 Intake Total 1080 120 Output Total 600 500 350 Balance 480 -500 -230 Intake: Oral 1080 120 Output: Urine 600 500 350 Other: Voiding Method Toilet Urinal Toilet Urinal Urinal # Voids 1 - Exam Awake, comfortable, not in any acute distress Examination of the heart S1 and S2 Examination lungs bilateral breath sounds are heard Abdomen is soft nontender Examination lower extremity shows no significant edema Right upper extremity is swollen. Patient had fallen on his right side prior to admission. DIRECTOR [employer]IS[employer] exam grossly intact. Patient is alert and oriented 3 - Labs CBC & Chem 7: 03/05/22 06:30 03/06/22 04:41 Labs: Abnormal Lab Results - Last 24 Hours (Table) 03/05/22 03/06/22 03/06/22 Range/Units 16:52 04:41 04:41 Sodium 127 L 125 L (137-145) mmol/L Chloride 95 L 96 L (98-107) mmol/L BUN 39 H 44 H (9-20) mg/dL Creatinine 6.37 H 7.34 H* (0.66-1.25) mg/dL Glucose 106 H (74-99) mg/dL Calcium 7.8 L 7.7 L (8.4-10.2) mg/dL AST 534 H (17-59) U/L ALT 217 H (4-49) U/L Creatine Kinase 14183 H* (55-170) U/L Total Protein 4.5 L (6.3-8.2) g/dL Albumin 2.4 L (3.5-5.0) g/dL Assessment and Plan Assessment: 1. Acute kidney injury ATN secondary to rhabdomyolysis and contrast nephropathy. Renal function has progressively worsened. UA shows blood and protein. CT showed no evidence of obstruction. Renal replacement therapy discussed with patient. He is agreeable 2. Severe rhabdo my lysis status post fall. Patient was on the floor overnight. CK levels are decreasing 3. Hyperphosphatemia associated with rhabdo my lysis 4. EtOH abuse 5. Hypovolemia 6. Hyponatremia associated with acute kidney injury, worsened with normal saline. Currently hypervolemic. Expect improvement with dialysis. Plan: Decrease IV fluids Consult vascular surgery for dialysis catheter placement and we will plan for fi rst treatment today. Samsca 1 And diuretics depending on volume status tomorrow.
[2022-03-06] MEDS ORDERED: TOLVAPTAN 15 MG 1/2 TABLET PO ONE (10:30)
--- NOTE | 2022-03-06 10:57 | P.PN ---
Subjective Progress Note Date: 03/06/22 Patient states that he is urinating. His renal functions continued to worsen. I discussed with nephrology who said plan is to start dialysis. Patient states that his right upper extremity numbness and strength are improving. He still has significant swelling in his right upper extremity. Patient states that he still has tremors. Otherwise denying any other withdrawal symptoms. Objective - Vital Signs Vital signs: Vital Signs Temp 98.6 F 03/06/22 08:13 Pulse 92 03/06/22 08:13 Resp 16 03/06/22 08:13 BP 134/89 03/06/22 08:13 Pulse Ox 90 L 03/06/22 08:13 FiO2 Intake & Output 03/05/22 03/06/22 03/06/22 18:59 06:59 18:59 Intake Total 1080 120 Output Total 600 500 350 Balance 480 -500 -230 Intake: Oral 1080 120 Output: Urine 600 500 350 Other: Voiding Method Toilet Urinal Toilet Urinal Urinal # Voids 1 - Exam General examination - Alert and Oriented 3 in NAD Heart - + S1S2 no murmurs Lungs - Clear to auscultation Abdomen soft NT ND +ve BS Extremities - significant swelling of the right upper extremity and also the right hip. 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 Psych - Calm and cooperative - Labs CBC & Chem 7: 03/05/22 06:30 03/06/22 04:41 Labs: Abnormal Lab Results - Last 24 Hours (Table) 03/05/22 03/06/22 03/06/22 Range/Units 16:52 04:41 04:41 Sodium 127 L 125 L (137-145) mmol/L Chloride 95 L 96 L (98-107) mmol/L BUN 39 H 44 H (9-20) mg/dL Creatinine 6.37 H 7.34 H* (0.66-1.25) mg/dL Glucose 106 H (74-99) mg/dL Calcium 7.8 L 7.7 L (8.4-10.2) mg/dL AST 534 H (17-59) U/L ALT 217 H (4-49) U/L Creatine Kinase 65208 H* (55-170) U/L Total Protein 4.5 L (6.3-8.2) g/dL Albumin 2.4 L (3.5-5.0) g/dL Assessment and Plan Assessment: #Acute rhabdomyolysis secondary to prolonged time on floor ( #Acute kidney injury secondary to above #Metabolic acidosis secondary to above CK level is improving Creatinine is worsening Discussed with nephrology and plan is to start dialysis Nephrology on board #Right arm swelling and numbness -Patient states that he was drinking and passed out and when he regained consciousness he was lying on his right side. -Right upper extremity ultrasound shows superficial thrombophlebitis. Patient seen by vascular surgery recommends elevating the hand and warm compression -Patient's numbness is improving however still has significant swelling -Orthopedic surgery ordered MRI of his shoulder #Elevated troponin -Likely due to rhabdomyolysis -Cardiology recommended no further workup and have signed off #Alcohol withdrawal syndrome in alcohol dependent patient -Benzos per CIWA scale Seizure precautions Fall precautions Patient will return to [facility] once medically stable #Elevated LFTs likely due to rhabdomyolysis versus alcoholic hepatitis and fatty liver -LFTs improving #Hypertension Controlled Resume labetalol and amlodipine DVT prophylaxis heparin subcu 3 times a day Full code
--- NOTE | 2022-03-06 11:42 | P.PN ---
Subjective Progress Note Date: 03/06/22 Principal diagnosis: Right upper extremity numbness Patient is seen and examined as a follow-up. We were contacted by nephrology that patient's creatinine has continued to increase and is at 7.34, he is also hyponatremic sodium at 125.. They are requesting hemodialysis. Vascular surgery was asked to place a temporary dialysis catheter. He is complaining of some increased weakness and mild shortness of breath. Objective - Vital Signs Vital signs: Vital Signs Temp 98.6 F 03/06/22 08:13 Pulse 92 03/06/22 08:13 Resp 16 03/06/22 08:13 BP 134/89 03/06/22 08:13 Pulse Ox 90 L 03/06/22 08:13 FiO2 Intake & Output 03/05/22 03/06/22 03/06/22 18:59 06:59 18:59 Intake Total 1080 120 Output Total 600 500 350 Balance 480 -500 -230 Intake: Oral 1080 120 Output: Urine 600 500 350 Other: Voiding Method Toilet Urinal Toilet Urinal Urinal # Voids 1 - Exam General appearance: The patient is alert, oriented, appears in no acute distress. HET: Head is normocephalic and atraumatic. Pupils are equal and reactive. Neck: Supple without lymphadenopathy. Trachea midline. Extremities: Normal skin color and turgor. Right upper extremity swollen from shoulder to elbow. Lateral part of upper extremity with blistering. He has a palpable radial and ulnar pulse. Normal strength and tone. He is able to move his fingers. He does have difficulty with elevation of right arm and rotation of the shoulder due to pain. Neurological: No focal deficits. Alert and oriented 3. Patient is visibly shaking/tremors. - Labs CBC & Chem 7: 03/05/22 06:30 03/06/22 04:41 Labs: Abnormal Lab Results - Last 24 Hours (Table) 03/05/22 03/06/22 03/06/22 Range/Units 16:52 04:41 04:41 Sodium 127 L 125 L (137-145) mmol/L Chloride 95 L 96 L (98-107) mmol/L BUN 39 H 44 H (9-20) mg/dL Creatinine 6.37 H 7.34 H* (0.66-1.25) mg/dL Glucose 106 H (74-99) mg/dL Calcium 7.8 L 7.7 L (8.4-10.2) mg/dL AST 534 H (17-59) U/L ALT 217 H (4-49) U/L Creatine Kinase 32823 H* (55-170) U/L Total Protein 4.5 L (6.3-8.2) g/dL Albumin 2.4 L (3.5-5.0) g/dL Assessment and Plan Assessment: 1. Acute kidney injury requiring dialysis 2. Right upper extremity pain 3. Right upper extremity injury 4. Fall 5. Alcohol Intoxication and abuse 6. Right hip pain 7. Elevated troponins 8. Rhabdomyolysis Plan: Please obtain consent for temporary hemodialysis catheter placement. Dialysis per recommendations from nephrology. The impression and plan of care has been dictated as directed. Dr. Chance I performed a history and examination of this patient, discussed the same with the dictator. I agree with the dictator's note ,documented as a scribe. Any additional findings or plans will be noted.
--- NOTE | 2022-03-06 15:17 | MR ---
MR right hip without contrast HISTORY: Right hip pain and swelling Multiplanar multisequence imaging obtained through the pelvis with attention to the right hip small f [id number] images were performed Correlation to CT scan dated 03/03/2022 Again noted is the swelling involving the musculature about the right hip, correlate for rhabdomyolys is. Extensive edema signal is present also within the subcutaneous soft tissues. Bone marrow signal i s maintained. Asymmetric thickening of the gluteus musculature is present on the right as well as the distal aspect of the hip flexors, some involvement of the piriformis and obturator muscles. Hamstrin g musculature shows normal origins. No free fluid within the pelvis. No evident fracture or dislocation. Articular cartilage signal is maintained. IMPRESSION: Correlate for rhabdomyolysis, findings as noted on prior CT cellulitis, myositis.
[2022-03-06 15:32] LABS: Hepatitis B Surface AB- Quant 91.1 mIU/mL; Hepatitis B Surface Antibody Reactive (Nonreactive)
--- NOTE | 2022-03-06 15:35 | P.OP ---
Date of Procedure: 03/06/22 Description of Procedure: SURGEON: Loida Chance DO MECHANICAL TECHNOLOGIST: None PREOPERATIVE DIAGNOSIS: JOHN, rhabdomyolysis, worsening creatinine POSTOPERATIVE DIAGNOSIS: Same OPERATION: Ultrasound-guided rightcommon femoral vein access, placement of temporary dialysis catheter DESCRIPTION OF PROCEDURE: An ultrasound was utilized and the right common femoral vein was identified and found to be free of thrombus. The groin was prepped and draped in usual sterile fashion. A preprocedure timeout was per formed, all parties were in agreement. The skin overlying the vein was anesthetized with 1% lidocaine plain. A multipurpose needle was utilized and the femoral vein was accessed on first attempt with return of dark venous, nonpulsatile blood. The guidewire was passed easily. Serial dilation was performed of the subcutaneous tissues. The catheter was placed and secured with suture. It aspirated and flushed freely. A dressing was applied. The patient tolerated the procedure well.
[2022-03-06 15:42] LABS: Hepatitis B Surface Antigen Nonreactive (Nonreactive)
--- NOTE | 2022-03-06 16:34 | MR ---
EXAMINATION TYPE: MR shoulder RT wo con DATE OF EXAM: 03/06/2022 COMPARISON: Film 03/03/2022 HISTORY: right shoulder pain swelling. TECHNIQUE: Multiplanar, multisequence imaging of the right shoulder is performed without contrast. FINDINGS: There is artifact on the exam. Rotator Cuff: Intact Acromioclavicular Joint: Within normal limits Glenohumeral Joint: Intact Labrum: The labrum appears grossly intact given limitation of non-arthrogram study. Biceps Tendon: The long head of biceps is in normal location within bicipital groove, small amount of fluid present along the long head of biceps tendon. Bone marrow signal: Maintained Other: There is extensive subcutaneous edema. Shoulder musculature shows T2 bright signal, T1 interme diate signal extending along the distal aspect of the exam, musculature not entirely included the rig ht upper extremity. Abnormal signal present within the deltoid, teres minor, subscapularis as well as triceps musculature Fluid signal is present along the muscle planes IMPRESSION: Correlate for rhabdomyolysis. Difficult to exclude tissue necrosis of the musculature surrounding the shoulder.
[2022-03-06] MEDS: ACETAMINOPHEN TAB 325 MG TAB PO PRN (20:11)
[2022-03-07] MEDS: HEPARIN SODIUM,PORCINE/PF 5,000 UNIT/0.5 ML SYRINGE SQ SCH ×4 (00:03→23:00)
[2022-03-07] MEDS: LORazepam 2 MG/ML INJ IV PRN ×5 (03:35→23:08)
[2022-03-07] MEDS: THIAMINE 100 MG TAB PO SCH ×2 (06:31→17:35)
[2022-03-07] MEDS: PANTOPRAZOLE 40 MG TABLET PO SCH (06:31)
[2022-03-07] MEDS: SODIUM CHLORIDE 0.9% 1,000 ML IV SCH ×2 (06:31→17:40)
[2022-03-07 08:11] LABS: Albumin 2.7 g/dL (3.5-5.0); Calcium 8.1 mg/dL (8.4-10.2); Total Bilirubin 0.5 mg/dL (0.2-1.3)
[2022-03-07 08:35] LABS: Basophils % (A) 0 %; Eosinophils # (A) 0.1 k/uL (0-0.7); Eosinophils % (A) 1 %; HCT 36.3 % (39.0-53.0); Lymphocytes # (A) 0.9 k/uL (1.0-4.8); Lymphocytes % (A) 8 %; MCH 32.5 pg (25.0-35.0); MCHC 33.1 g/dL (31.0-37.0); MCV 98.2 fL (80.0-100.0); Monocytes # (A) 0.6 k/uL (0-1.0); Monocytes % (A) 5 %; Neutrophils # (A) 9.1 k/uL (1.3-7.7); Neutrophils % (A) 84 %; Platelet Count 215 k/uL (150-450); RDW 13.8 % (11.5-15.5); WBC 10.8 k/uL (3.8-10.6)
--- NOTE | 2022-03-07 09:59 | P.PN ---
Subjective Progress Note Date: 03/07/22 Patient seen and examined. Complains of shoulder and hip pain but otherwise no issues changed. Had dialysis yesterday with no issues. Objective - Vital Signs Vital signs: Vital Signs Temp 98.2 F 03/07/22 08:00 Pulse 90 03/07/22 08:00 Resp 16 03/07/22 08:00 BP 133/82 03/07/22 08:00 Pulse Ox 94 L 03/07/22 08:00 FiO2 Intake & Output 03/06/22 03/07/22 03/07/22 18:59 06:59 18:59 Intake Total 360 180 Output Total 1150 900 500 Balance -790 -900 -320 Weight 99.5 kg Intake: Oral 360 180 Output: Urine 650 900 500 Hemodialysis 500 Other: Voiding Method Toilet Toilet Toilet Urinal Urinal Urinal - Exam Gen. no acute distress. He changes.Heartappearsregular.Lungsareclear.Mildrightupperextremityandrightlowerex tremityswelling.Rightfemoralveindialysiscatheterintact.Cleananddry. - Labs CBC & Chem 7: 03/07/22 06:57 03/07/22 06:57 Labs: Abnormal Lab Results - Last 24 Hours (Table) 03/06/22 03/07/22 03/07/22 Range/Units 04:42 06:57 06:57 WBC 10.8 H (3.8-10.6) k/uL RBC 3.70 L (4.30-5.90) m/uL Hgb 12.0 L (13.0-17.5) gm/dL Hct 36.3 L (39.0-53.0) % Neutrophils # 9.1 H (1.3-7.7) k/uL Lymphocytes # 0.9 L (1.0-4.8) k/uL Sodium 131 L (137-145) mmol/L BUN 37 H (9-20) mg/dL Creatinine 6.72 H (0.66-1.25) mg/dL Calcium 8.1 L (8.4-10.2) mg/dL AST 401 H (17-59) U/L ALT 181 H (4-49) U/L Total Protein 5.0 L (6.3-8.2) g/dL Albumin 2.7 L (3.5-5.0) g/dL Hep Bs Antibody Reactive A (Nonreactive) Assessment and Plan Assessment: Acute kidney injury Rhabdomyolysis Worsening creatinine now requiring dialysis Plan: Continue dialysis per nephrology recommendations. We'll be available to place tunneled catheter should be necessary versus awaiting renal recovery..
--- NOTE | 2022-03-07 10:50 | P.PN ---
Subjective Progress Note Date: 03/07/22 Principal diagnosis: Right shoulder and right lateral hip pain. Neuropraxia right upper extremity. Rhabdomyolysis. Patient is a 31-year-old male seen at bedside this afternoon in consultation for right shoulder pain and swelling as well as right hip pain and swelling. He was admitted through the emergency department on 03/03/2022. He has a history of of alcohol abuse presented to the emergency department from [facility]. He initially reported having numbness in his right arm as well as right hip pain. He states that the night prior he got significantly intoxicated and found himself on the floor in the morning. He was unsure how he got on the floor but assumed that he fell. He is unsure how long he had been unconscious for. He states he continues to have right shoulder pain and swelling but the numbness and tingling have improved. He continues to have right hip pain as well. He has no constant numbness/tingling or radicular symptoms. He has pain with range of motion of the right shoulder as well as the right hip. He denies calf pain. He denies fever, chills, chest pain or shortness of breath. He's had studies including x-rays of the right shoulder and hip which show no fractures. Ultrasound of the right upper extremity showed a superficial venous thrombosis. CT of the head and neck show no fractures or instability. He is being followed by nephrology as well due to acute kidney injury. 03/06/2022: The patient states that the paresthesias to the upper extremity are improving. He continues to have pain in the right shoulder and upper arm as well as the right lateral hip. MRIs are scheduled for 1:45 today. Vital signs are stable. 02/14/2022: The patient is currently having dialysis. He is evaluated at bedside. He has no new complaints or concerns today. He states that the numbness and tingling to the upper extremity is improving. He is having slight numbness to the anterior right thigh. He feels that the motion to his right arm is improving slightly. He complains of inability to move the shoulder. Vital signs are stable. Labs are minimally improved. Objective - Vital Signs Vital signs: Vital Signs Temp 98.2 F 03/07/22 08:00 Pulse 90 03/07/22 08:00 Resp 16 03/07/22 08:00 BP 133/82 03/07/22 08:00 Pulse Ox 94 L 03/07/22 08:00 FiO2 Intake & Output 03/06/22 03/07/22 03/07/22 18:59 06:59 18:59 Intake Total 360 180 Output Total 1150 900 500 Balance -790 -900 -320 Weight 99.5 kg Intake: Oral 360 180 Output: Urine 650 900 500 Hemodialysis 500 Other: Voiding Method Toilet Toilet Toilet Urinal Urinal Urinal - Exam This is a pleasant 31-year-old male in no acute distress. He is alert and oriented 3. Exam of the upper extremity reveals soft tissue swelling to the shoulder and anterior chest. The shoulder is tight but slightly compressible about the deltoid. Biceps is soft and nontender. Motion is limited to the shoulder. He has improved motion to the elbow, wrist and fingers. Exam the lower extremities reveals tenderness with palpation about the lateral hip in the region of the greater trochanter. Mild to moderate swelling. No hip irritability with passive internal/external rotation. Neurovascular status to the lower extremities intact. - Labs CBC & Chem 7: 03/07/22 06:57 03/07/22 06:57 Labs: Abnormal Lab Results - Last 24 Hours (Table) 03/06/22 03/07/22 03/07/22 Range/Units 04:42 06:57 06:57 WBC 10.8 H (3.8-10.6) k/uL RBC 3.70 L (4.30-5.90) m/uL Hgb 12.0 L (13.0-17.5) gm/dL Hct 36.3 L (39.0-53.0) % Neutrophils # 9.1 H (1.3-7.7) k/uL Lymphocytes # 0.9 L (1.0-4.8) k/uL Sodium 131 L (137-145) mmol/L BUN 37 H (9-20) mg/dL Creatinine 6.72 H (0.66-1.25) mg/dL Calcium 8.1 L (8.4-10.2) mg/dL AST 401 H (17-59) U/L ALT 181 H (4-49) U/L Total Protein 5.0 L (6.3-8.2) g/dL Albumin 2.7 L (3.5-5.0) g/dL Hep Bs Antibody Reactive A (Nonreactive) Assessment and Plan (1) JOHN (acute kidney injury) Current Visit: Yes Status: Acute Code(s): N17.9 - ACUTE KIDNEY FAILURE, UNSPECIFIED SNOMED Code(s): 87534416 (2) Alcohol withdrawal Current Visit: Yes Status: Acute Code(s): F10.939 - ALCOHOL USE, UNSPECIFIED WITH WITHDRAWAL, UNSPECIFIED SNOMED Code(s): 313750556 (3) Neurapraxia of right upper extremity Current Visit: Yes Status: Acute Code(s): S44.91XA - INJURY OF UNSP NERVE AT SHLDR/UP ARM, RIGHT ARM, INIT SNOMED Code(s): 169784641 (4) Rhabdomyolysis Current Visit: Yes Status: Acute Priority: Medium Code(s): M62.82 - RHABDOMYOLYSIS SNOMED Code(s): 882380355 (5) Right hip pain Current Visit: Yes Status: Acute Priority: Medium Code(s): M25.551 - PAIN IN RIGHT HIP SNOMED Code(s): 98489412 (6) Right shoulder pain Current Visit: Yes Status: Acute Priority: Medium Code(s): M25.511 - PAIN IN RIGHT SHOULDER SNOMED Code(s): 02678402 Plan: The clinical findings are discussed with the patient. MRI is reviewed with Dr. Lao. There is significant swelling in the soft tissue and in the deltoid muscle. No acute fractures noted. He is continuing to improve with motion to the upper extremity. Numbness and tingling are resolving. He is encouraged to continue working on range of motion of the upper extremity. We will continue to follow.
--- NOTE | 2022-03-07 10:53 | P.PN ---
Subjective Progress Note Date: 03/07/22 Patient is getting his second session of dialysis when I went to go see him. Patient states that he still having some withdrawal symptoms with tremors and diaphoresis. He states that he got some Ativan this morning. Patient states that he still making some urine. Patient is denying any numbness or weakness in his right upper extremity. Objective - Vital Signs Vital signs: Vital Signs Temp 98.2 F 03/07/22 08:00 Pulse 90 03/07/22 08:00 Resp 16 03/07/22 08:00 BP 133/82 03/07/22 08:00 Pulse Ox 94 L 03/07/22 08:00 FiO2 Intake & Output 03/06/22 03/07/22 03/07/22 18:59 06:59 18:59 Intake Total 360 180 Output Total 1150 900 500 Balance -790 -900 -320 Weight 99.5 kg Intake: Oral 360 180 Output: Urine 650 900 500 Hemodialysis 500 Other: Voiding Method Toilet Toilet Toilet Urinal Urinal Urinal - Exam General examination - Alert and Oriented 3 in NAD Heart - + S1S2 no murmurs Lungs - Clear to auscultation Abdomen soft NT ND +ve BS Extremities - significant swelling of the right upper extremity and also the right hip. 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 Psych - Calm and cooperative - Labs CBC & Chem 7: 03/07/22 06:57 03/07/22 06:57 Labs: Abnormal Lab Results - Last 24 Hours (Table) 03/06/22 03/07/22 03/07/22 Range/Units 04:42 06:57 06:57 WBC 10.8 H (3.8-10.6) k/uL RBC 3.70 L (4.30-5.90) m/uL Hgb 12.0 L (13.0-17.5) gm/dL Hct 36.3 L (39.0-53.0) % Neutrophils # 9.1 H (1.3-7.7) k/uL Lymphocytes # 0.9 L (1.0-4.8) k/uL Sodium 131 L (137-145) mmol/L BUN 37 H (9-20) mg/dL Creatinine 6.72 H (0.66-1.25) mg/dL Calcium 8.1 L (8.4-10.2) mg/dL AST 401 H (17-59) U/L ALT 181 H (4-49) U/L Total Protein 5.0 L (6.3-8.2) g/dL Albumin 2.7 L (3.5-5.0) g/dL Hep Bs Antibody Reactive A (Nonreactive) Assessment and Plan Assessment: #Acute rhabdomyolysis secondary to prolonged time on floor #Acute kidney injury secondary to above #Metabolic acidosis secondary to above Patient started on dialysis on 03/06/2022 Patient had temperature dialysis catheter placed on 03/06/2022 CK is trending down Nephrology on board #Right arm and hip swelling and numbness secondary to myositis from rhabdomyolysis -Patient states that he was drinking and passed out and when he regained consciousness he was lying on his right side. -Right upper extremity ultrasound shows superficial thrombophlebitis. Patient seen by vascular surgery recommends elevating the hand and warm compression -Patient's numbness is improving however still has significant swelling -I reviewed patient's MRI of right shoulder and right hip that showed extensive edema and possible necrosis likely due to myositis and rhabdomyolysis -Orthopedic surgery also on board #Elevated troponin -Likely due to rhabdomyolysis -Cardiology recommended no further workup and have signed off #Alcohol withdrawal syndrome in alcohol dependent patient -Benzos per CIWA scale Seizure precautions Fall precautions Patient will return to [facility] once medically stable #Elevated LFTs likely due to rhabdomyolysis versus alcoholic hepatitis and fatty liver -LFTs improving #Hypertension Controlled Resume labetalol and amlodipine DVT prophylaxis heparin subcu 3 times a day Full code
[2022-03-07] MEDS: amLODIPine 10 MG TAB PO SCH (12:45)
[2022-03-07] MEDS: PREGABALIN 25 MG CAP PO SCH ×2 (12:45→20:13)
[2022-03-07] MEDS: LABETALOL 100 MG TAB PO SCH ×2 (12:45→20:13)
--- NOTE | 2022-03-07 14:16 | P.PN ---
Subjective Progress Note Date: 03/07/22 Follow-up for acute kidney injury on dialysis secondary to rhabdomyolysis. Complaining of right leg pain and tenderness. Objective - Vital Signs Vital signs: Vital Signs Temp 98.1 F 03/07/22 11:48 Pulse 81 03/07/22 11:48 Resp 16 03/07/22 11:48 BP 141/89 03/07/22 12:41 Pulse Ox 97 03/07/22 11:48 FiO2 Intake & Output 03/06/22 03/07/22 03/07/22 18:59 06:59 18:59 Intake Total 360 180 Output Total 9532 642 6584 Balance -790 900 -1320 Weight 99.5 kg Intake: Oral 360 180 Output: Urine 650 900 500 Hemodialysis 500 1000 Other: Voiding Method Toilet Toilet Toilet Urinal Urinal Urinal - Exam No acute distress S1-S2 heard Lungs clear Right groin Eris Right leg swollen and tender compared to left - Labs CBC & Chem 7: 03/07/22 06:57 03/07/22 06:57 Labs: Abnormal Lab Results - Last 24 Hours (Table) 03/06/22 03/07/22 03/07/22 Range/Units 04:42 06:57 06:57 WBC 10.8 H (3.8-10.6) k/uL RBC 3.70 L (4.30-5.90) m/uL Hgb 12.0 L (13.0-17.5) gm/dL Hct 36.3 L (39.0-53.0) % Neutrophils # 9.1 H (1.3-7.7) k/uL Lymphocytes # 0.9 L (1.0-4.8) k/uL Sodium 131 L (137-145) mmol/L BUN 37 H (9-20) mg/dL Creatinine 6.72 H (0.66-1.25) mg/dL Calcium 8.1 L (8.4-10.2) mg/dL AST 401 H (17-59) U/L ALT 181 H (4-49) U/L Total Protein 5.0 L (6.3-8.2) g/dL Albumin 2.7 L (3.5-5.0) g/dL Hep Bs Antibody Reactive A (Nonreactive) Assessment and Plan Assessment: #1 acute kidney injury on hemodialysis secondary to rhabdomyolysis. #2 rhabdomyolysis secondary to alcohol and fall. #3 hypertension essential Plan: #1 urine output better. Second hemodialysis today. #2 plan for next treatment on Wednesday. #3 increase IV fluids from 60 to 100 ML's an hour. #4 avoid nephrotoxic agents.
--- NOTE | 2022-03-07 16:08 | US ---
EXAMINATION TYPE: US venous doppler duplex LE RT DATE OF EXAM: 03/07/2022 3:56 PM COMPARISON: NONE CLINICAL HISTORY: right lower extremity swelling. SIDE PERFORMED: TECHNIQUE: The lower extremity deep venous system is examined utilizing real time linear array sonog sneha with graded compression, doppler sonography and color-flow sonography. VESSELS IMAGED: Common Femoral Vein Deep Femoral Vein Greater Saphenous Vein * Femoral Vein Popliteal Vein Small Saphenous Vein * Proximal Calf Veins (* superficial vessels) There is normal flow and compressibility from the common femoral vein to the popliteal vein. There is normal augmentation. IMPRESSION: No evidence of deep vein thrombosis in the right leg.
--- NOTE | 2022-03-07 19:35 | US ---
EXAMINATION TYPE: US lower ext pseudo artery RT DATE OF EXAM: 03/07/2022 COMPARISON: NONE CLINICAL HISTORY: R/O pseudoaneurysm/bleed, increased edema and pain. Patient had right groin dialysi s fistula placed yesterday. Leg pain. No palpable. Limited visualization due to bandaging and placement of dialysis fistula EXAM PERFORMED: Grayscale and color Doppler duplex imaging performed of the groin, post cardiac fritz ter to assess for pseudoaneurysm. SIDE PERFORMED: Right Color and Waveform Doppler performed to assess for the presence of pseudoaneurysm; Is there ultrasound evidence of a pseudoaneurysm: no Is there a fluid collection present: no IMPRESSION: Exam fails to demonstrate evidence of a pseudoaneurysm. No pathologic fluid collection.
[2022-03-07] MEDS ORDERED: MORPHINE SULFATE 2 MG/ML SYRINGE IVP STA (19:37)
[2022-03-07] MEDS: ACETAMINOPHEN TAB 325 MG TAB PO PRN (19:53)
[2022-03-08] MEDS: ACETAMINOPHEN TAB 325 MG TAB PO PRN ×2 (06:01→15:55)
[2022-03-08] MEDS: PANTOPRAZOLE 40 MG TABLET PO SCH (06:16)
[2022-03-08] MEDS: THIAMINE 100 MG TAB PO SCH ×2 (06:16→16:56)
[2022-03-08] MEDS: SODIUM CHLORIDE 0.9% 1,000 ML IV SCH ×2 (06:17→16:37)
[2022-03-08 07:57] LABS: Basophils # (A) 0.1 k/uL (0-0.2); Basophils % (A) 1 %; Eosinophils # (A) 0.2 k/uL (0-0.7); Eosinophils % (A) 2 %; HCT 36.5 % (39.0-53.0); HGB 12.1 gm/dL (13.0-17.5); Lymphocytes # (A) 0.9 k/uL (1.0-4.8); Lymphocytes % (A) 8 %; MCH 32.5 pg (25.0-35.0); MCHC 33.2 g/dL (31.0-37.0); MCV 97.8 fL (80.0-100.0); Mean Platelet Volume 7.6; Monocytes # (A) 0.8 k/uL (0-1.0); Monocytes % (A) 7 %; Neutrophils # (A) 9.3 k/uL (1.3-7.7); Neutrophils % (A) 80 %; Platelet Count 220 k/uL (150-450); RBC 3.73 m/uL (4.30-5.90); RDW 13.8 % (11.5-15.5); WBC 11.6 k/uL (3.8-10.6)
[2022-03-08] MEDS: LABETALOL 100 MG TAB PO SCH ×2 (08:18→20:44)
[2022-03-08] MEDS: HEPARIN SODIUM,PORCINE/PF 5,000 UNIT/0.5 ML SYRINGE SQ SCH ×2 (08:18→15:47)
[2022-03-08] MEDS: PREGABALIN 25 MG CAP PO SCH ×2 (08:18→20:43)
[2022-03-08] MEDS: amLODIPine 10 MG TAB PO SCH (08:18)
[2022-03-08 08:25] LABS: Calcium 7.9 mg/dL (8.4-10.2); Potassium 4.2 mmol/L (3.5-5.1)
--- NOTE | 2022-03-08 10:17 | P.PN ---
Subjective Progress Note Date: 03/08/22 Principal diagnosis: Right shoulder and right lateral hip pain. Neuropraxia right upper extremity. Rhabdomyolysis. Patient is a 31-year-old male seen at bedside this afternoon in consultation for right shoulder pain and swelling as well as right hip pain and swelling. He was admitted through the emergency department on 03/03/2022. He has a history of of alcohol abuse presented to the emergency department from [place]. He initially reported having numbness in his right arm as well as right hip pain. He states that the night prior he got significantly intoxicated and found himself on the floor in the morning. He was unsure how he got on the floor but assumed that he fell. He is unsure how long he had been unconscious for. He states he continues to have right shoulder pain and swelling but the numbness and tingling have improved. He continues to have right hip pain as well. He has no constant numbness/tingling or radicular symptoms. He has pain with range of motion of the right shoulder as well as the right hip. He denies calf pain. He denies fever, chills, chest pain or shortness of breath. He's had studies including x-rays of the right shoulder and hip which show no fractures. Ultrasound of the right upper extremity showed a superficial venous thrombosis. CT of the head and neck show no fractures or instability. He is being followed by nephrology as well due to acute kidney injury. 03/06/2022: The patient states that the paresthesias to the upper extremity are improving. He continues to have pain in the right shoulder and upper arm as well as the right lateral hip. MRIs are scheduled for 1:45 today. Vital signs are stable. 03/07/2022: The patient is currently having dialysis. He is evaluated at bedside. He has no new complaints or concerns today. He states that the numbness and tingling to the upper extremity is improving. He is having slight numbness to the anterior right thigh. He feels that the motion to his right arm is improving slightly. He complains of inability to move the shoulder. Vital signs are stable. Labs are minimally improved. 03/08/2022: The patient continues to complain of right shoulder and right thigh and knee pain. He states that his motion to the upper extremity is improving. He feels that his right knee is more swollen. Vital signs are stable. Labs are improving slightly. Venous and arterial Doppler ultrasound were performed yesterday which show no evidence of fluid collection, pseudoaneurysm or DVT. Objective - Vital Signs Vital signs: Vital Signs Temp 98.1 F 03/08/22 08:00 Pulse 80 03/08/22 08:00 Resp 16 03/08/22 08:00 BP 127/81 03/08/22 08:00 Pulse Ox 97 03/08/22 08:00 FiO2 Intake & Output 03/07/22 03/08/22 03/08/22 18:59 06:59 18:59 Intake Total 1320 118 Output Total 1900 1130 900 Balance -580 -1130 -782 Weight 99.7 kg Intake: Intake, IV Titration 540 Amount Sodium Chloride 0.9% 1, 540 000 ml @ 100 mls/hr IV . Q10H [facility] Rx#:[id number] Oral 780 118 Output: Urine 900 1130 900 Hemodialysis 1000 Other: Voiding Method Toilet Urinal Urinal Urinal - Exam This is a pleasant 31-year-old male in no acute distress. He is alert and oriented 3. Exam of the upper extremity reveals soft tissue swelling to the shoulder and anterior chest. The shoulder is tight but slightly compressible about the deltoid. Biceps is soft and nontender. Motion is limited to the shoulder but improved from yesterday. He is able to forward flex to about 100. He has improved motion to the elbow, wrist and fingers. He has full wrist and thumb extension without difficulty or pain. Good strength against resistance to the wrist and thumb. Exam the lower extremities reveals tenderness with palpation about the lateral hip in the region of the greater trochanter. Mild to moderate swelling, essentially unchanged from yesterday's exam. There is mild swelling about the knee, minimal joint effusion. No hip irritability with passive internal/external rotation. He has full foot and ankle motion bilaterally. Neurovascular status to the lower extremities intact. - Labs CBC & Chem 7: 03/08/22 07:28 03/08/22 07:28 Labs: Abnormal Lab Results - Last 24 Hours (Table) 03/08/22 03/08/22 Range/Units 07:28 07:28 WBC 11.6 H (3.8-10.6) k/uL RBC 3.73 L (4.30-5.90) m/uL Hgb 12.1 L (13.0-17.5) gm/dL Hct 36.5 L (39.0-53.0) % Neutrophils # 9.3 H (1.3-7.7) k/uL Lymphocytes # 0.9 L (1.0-4.8) k/uL Sodium 133 L (137-145) mmol/L BUN 32 H (9-20) mg/dL Creatinine 5.99 H (0.66-1.25) mg/dL Calcium 7.9 L (8.4-10.2) mg/dL Assessment and Plan (1) JOHN (acute kidney injury) Current Visit: Yes Status: Acute Code(s): N17.9 - ACUTE KIDNEY FAILURE, UNSPECIFIED SNOMED Code(s): 39543326 (2) Alcohol withdrawal Current Visit: Yes Status: Acute Code(s): F10.939 - ALCOHOL USE, UNSPECIFIED WITH WITHDRAWAL, UNSPECIFIED SNOMED Code(s): 046043379 (3) Neurapraxia of right upper extremity Current Visit: Yes Status: Acute Code(s): S44.91XA - INJURY OF UNSP NERVE AT SHLDR/UP ARM, RIGHT ARM, INIT SNOMED Code(s): 399071825 (4) Rhabdomyolysis Current Visit: Yes Status: Acute Priority: Medium Code(s): M62.82 - RHABDOMYOLYSIS SNOMED Code(s): 112057133 (5) Right hip pain Current Visit: Yes Status: Acute Priority: Medium Code(s): M25.551 - PAIN IN RIGHT HIP SNOMED Code(s): 69796714 (6) Right shoulder pain Current Visit: Yes Status: Acute Priority: Medium Code(s): M25.511 - PAIN IN RIGHT SHOULDER SNOMED Code(s): 42527803 Plan: The clinical findings are discussed with the patient. MRI is reviewed with Dr. Lao. There is significant swelling in the soft tissue and in the deltoid muscle. No acute fractures noted. He is continuing to improve with motion to the upper extremity. Numbness and tingling are resolving. He is encouraged to continue working on range of motion of the upper extremity. We will continue to follow.
--- NOTE | 2022-03-08 10:48 | P.PN ---
Subjective Progress Note Date: 03/08/22 Patient says that he had some withdrawal symptoms this morning require some Ativan. He was sleeping comfortably in his bed and did not seem to be in acute distress. Nurse the patient is complaining of 8 out of 10 pain yesterday. I did tell nurse the patient appears comfortable so we'll keep him on Tylenol. As also called by the nurse yesterday because patient had some swelling in his right lower extremity after dialysis catheter was put in his right groin. Patient had a arterial and venous Doppler of his right lower extremity that were unremarkable. His swelling is likely from rhabdomyolysis. Objective - Vital Signs Vital signs: Vital Signs Temp 98.1 F 03/08/22 08:00 Pulse 80 03/08/22 08:00 Resp 16 03/08/22 08:00 BP 127/81 03/08/22 08:00 Pulse Ox 97 03/08/22 08:00 FiO2 Intake & Output 03/07/22 03/08/22 03/08/22 18:59 06:59 18:59 Intake Total 1320 118 Output Total 1900 1130 900 Balance -580 -1130 -782 Weight 99.7 kg Intake: Intake, IV Titration 540 Amount Sodium Chloride 0.9% 1, 540 000 ml @ 100 mls/hr IV . Q10H [facility] Rx#:[id number] Oral 780 118 Output: Urine 900 1130 900 Hemodialysis 1000 Other: Voiding Method Toilet Urinal Urinal Urinal - Exam General examination - Alert and Oriented 3 in NAD Heart - + S1S2 no murmurs Lungs - Clear to auscultation Abdomen soft NT ND +ve BS Extremities - significant swelling of the right upper extremity and right lower extremity up to his hip. bilateral hand tremors. 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 Psych - Calm and cooperative - Labs CBC & Chem 7: 03/08/22 07:28 03/08/22 07:28 Labs: Abnormal Lab Results - Last 24 Hours (Table) 03/08/22 03/08/22 Range/Units 07:28 07:28 WBC 11.6 H (3.8-10.6) k/uL RBC 3.73 L (4.30-5.90) m/uL Hgb 12.1 L (13.0-17.5) gm/dL Hct 36.5 L (39.0-53.0) % Neutrophils # 9.3 H (1.3-7.7) k/uL Lymphocytes # 0.9 L (1.0-4.8) k/uL Sodium 133 L (137-145) mmol/L BUN 32 H (9-20) mg/dL Creatinine 5.99 H (0.66-1.25) mg/dL Calcium 7.9 L (8.4-10.2) mg/dL Assessment and Plan Assessment: #Acute rhabdomyolysis secondary to prolonged time on floor #Acute kidney injury secondary to above #Metabolic acidosis secondary to above Patient started on dialysis on 03/06/2022 Patient has temperature dialysis catheter placed on 03/06/2022 and his right groin Status post 2 sessions of dialysis. Patient may status is scheduled for priya rrow CK is trending down Nephrology on board #Right arm and right lower extremity swelling and numbness secondary to myositis from rhabdomyolysis -Patient states that he was drinking and passed out and when he regained consciousness he was lying on his right side. -Right upper extremity ultrasound shows superficial thrombophlebitis. Patient seen by vascular surgery recommends elevating the hand and warm compression -Right posterior venous Doppler negative for DVT and arterial Doppler negative for pseudoaneurysm. -Patient's numbness is improving however still has significant swelling -I reviewed patient's MRI of right shoulder and right hip that showed extensive edema and possible necrosis likely due to myositis and rhabdomyolysis -Patient's imaging reviewed by orthopedic surgery and per ortho no surgical intervention needed. #Elevated troponin -Likely due to rhabdomyolysis -Cardiology recommended no further workup and have signed off #Alcohol withdrawal syndrome in alcohol dependent patient -Benzos per CIWA scale Seizure precautions Fall precautions Patient will return to [facility] once medically stable #Elevated LFTs likely due to rhabdomyolysis versus alcoholic hepatitis and fatty liver -LFTs improving #Hypertension Controlled Resume labetalol and amlodipine DVT prophylaxis heparin subcu 3 times a day Full code
[2022-03-08] MEDS: LORazepam 2 MG/ML INJ IV PRN ×2 (11:15→15:56)
--- NOTE | 2022-03-08 12:57 | P.PN ---
Subjective Progress Note Date: 03/08/22 Follow-up for acute kidney injury on dialysis secondary to rhabdomyolysis. Urine output of 3 L in the last 24 hours Objective - Vital Signs Vital signs: Vital Signs Temp 98.8 F 03/08/22 11:51 Pulse 78 03/08/22 11:51 Resp 18 03/08/22 11:51 BP 121/78 03/08/22 11:51 Pulse Ox 98 03/08/22 11:51 FiO2 Intake & Output 03/07/22 03/08/22 03/08/22 18:59 06:59 18:59 Intake Total 1320 418 Output Total 1900 1130 1400 Balance -580 -1130 -982 Weight 99.7 kg Intake: Intake, IV Titration 540 Amount Sodium Chloride 0.9% 1, 540 000 ml @ 100 mls/hr IV . Q10H [facility] Rx#:[id number] Oral 780 418 Output: Urine 900 1130 1400 Hemodialysis 1000 Other: Voiding Method Toilet Urinal Urinal Urinal - Exam No acute distress S1-S2 heard Lungs clear Right groin Eris Right leg swollen and tender compared to left - Labs CBC & Chem 7: 03/08/22 07:28 03/08/22 07:28 Labs: Abnormal Lab Results - Last 24 Hours (Table) 03/08/22 03/08/22 Range/Units 07:28 07:28 WBC 11.6 H (3.8-10.6) k/uL RBC 3.73 L (4.30-5.90) m/uL Hgb 12.1 L (13.0-17.5) gm/dL Hct 36.5 L (39.0-53.0) % Neutrophils # 9.3 H (1.3-7.7) k/uL Lymphocytes # 0.9 L (1.0-4.8) k/uL Sodium 133 L (137-145) mmol/L BUN 32 H (9-20) mg/dL Creatinine 5.99 H (0.66-1.25) mg/dL Calcium 7.9 L (8.4-10.2) mg/dL Assessment and Plan Assessment: #1 acute kidney injury on hemodialysis secondary to rhabdomyolysis. #2 rhabdomyolysis secondary to alcohol and fall. #3 hypertension essential Plan: #1 urine output better. Second hemodialysis yesterday. #2 plan for next treatment on Wednesday based on the renal function. #3 continue with IV fluids at 100 ML's an hour. #4 avoid nephrotoxic agents.
[2022-03-08] MEDS ORDERED: MORPHINE SULFATE 2 MG/ML SYRINGE IVP STA (19:52)
[2022-03-09] MEDS: HEPARIN SODIUM,PORCINE/PF 5,000 UNIT/0.5 ML SYRINGE SQ SCH ×4 (00:15→23:44)
[2022-03-09] MEDS: ACETAMINOPHEN TAB 325 MG TAB PO PRN ×3 (00:16→17:59)
[2022-03-09] MEDS: THIAMINE 100 MG TAB PO SCH ×2 (06:16→17:59)
[2022-03-09] MEDS: PANTOPRAZOLE 40 MG TABLET PO SCH (06:16)
[2022-03-09] MEDS: SODIUM CHLORIDE 0.9% 1,000 ML IV SCH ×3 (06:17→20:25)
[2022-03-09 07:49] LABS: HCT 36.9 % (39.0-53.0); HGB 12.2 gm/dL (13.0-17.5); MCH 31.3 pg (25.0-35.0); MCHC 33.1 g/dL (31.0-37.0); MCV 94.4 fL (80.0-100.0); Platelet Count 251 k/uL (150-450); RBC 3.91 m/uL (4.30-5.90); RDW 13.5 % (11.5-15.5); WBC 13.7 k/uL (3.8-10.6)
[2022-03-09 08:07] LABS: Calcium 7.8 mg/dL (8.4-10.2)
[2022-03-09 08:11] LABS: Magnesium 1.6 mg/dL (1.6-2.3); Potassium 4.8 mmol/L (3.5-5.1)
--- NOTE | 2022-03-09 08:39 | P.PN ---
Subjective Patient is seen in follow-up for acute kidney injury. Last hemodialysis was 03/07/2022. Urine output over 3 L in the last 24 hours. Oral intake is good. Vital signs are stable. General: Awake. No acute distress. HEENT: Head exam is unremarkable. LUNGS: Breath sounds decreased. HEART: Rate and Rhythm are regular. ABDOMEN: Soft, no distention. EXTREMITITES: No edema left lower extremity. 1+ edema right lower extremity. Objective - Vital Signs Vital signs: Vital Signs Temp 98.2 F 03/08/22 20:00 Pulse 73 03/09/22 04:00 Resp 18 03/09/22 04:00 BP 121/76 03/09/22 04:00 Pulse Ox 90 L 03/09/22 00:00 FiO2 Intake & Output 03/08/22 03/09/22 03/09/22 18:59 06:59 18:59 Intake Total 2076 Output Total 2400 740 400 Balance -324 -740 -400 Weight 101.1 kg Intake: Intake, IV Titration 1000 Amount Sodium Chloride 0.9% 1, 1000 000 ml @ 100 mls/hr IV . Q10H [facility] Rx#:[id number] Oral 1076 Output: Urine 2400 740 400 Other: Voiding Method Urinal Urinal - Labs CBC & Chem 7: 03/09/22 06:51 03/09/22 06:51 Labs: Abnormal Lab Results - Last 24 Hours (Table) 03/09/22 03/09/22 Range/Units 06:51 06:51 WBC 13.7 H (3.8-10.6) k/uL RBC 3.91 L (4.30-5.90) m/uL Hgb 12.2 L (13.0-17.5) gm/dL Hct 36.9 L (39.0-53.0) % Sodium 134 L (137-145) mmol/L Chloride 108 H (98-107) mmol/L Carbon Dioxide 19 L (22-30) mmol/L BUN 38 H (9-20) mg/dL Creatinine 6.14 H (0.66-1.25) mg/dL Calcium 7.8 L (8.4-10.2) mg/dL Phosphorus 5.0 H (2.5-4.5) mg/dL Assessment and Plan Plan: Assessment: 1. Acute kidney injury secondary to ATN secondary to rhabdomyolysis. Unknown baseline renal function. Creatinine was 2.24 on admission and peaked at 7.34. Started on hemodialysis this admission with last treatment on 03/07/2022. Nonoliguric. 2. Rhabdomyolysis secondary to fall. CK levels trending down. 3. Alcohol abuse. 4. Hypovolemic hyponatremia. Improved. 5. Metabolic acidosis secondary to acute kidney injury and IV fluids. 6. Hypomagnesemia from poor intake and alcohol abuse. 7. Hyperphosphatemia secondary to acute kidney injury. Improved. 8. Benign hypertension. Controlled. Plan: Hold off on hemodialysis today. Continue to assess on a daily basis. Maintain normal saline. Add oral bicarb. Replace magnesium. Avoid nephrotoxins. Strict I's and O's. Repeat CK level in the morning.
[2022-03-09 09:22] LABS: Band Neutrophils % 5 %; Eosinophils # (M) 0.27 k/uL (0-0.7); Metamyelocytes # (M) 0.41 k/uL (0); Metamyelocytes % 3 %; Monocytes # (M) 1.23 k/uL (0-1.0); Myelocytes # (M) 0.27 k/uL (0); Myelocytes % 2 %; Neutrophils % (M) 73 %; Nucleated Red Blood Cells 0 /100 WBC (0-0); Total Cells Counted 200
[2022-03-09 09:23] LABS: Anisocytosis (M) Present; Poikilocytosis (M) Present
[2022-03-09] MEDS: SODIUM BICARBONATE TAB 650 MG TAB PO SCH ×3 (09:58→20:24)
[2022-03-09] MEDS: PREGABALIN 25 MG CAP PO SCH ×2 (09:58→20:24)
[2022-03-09] MEDS: amLODIPine 10 MG TAB PO SCH (09:58)
[2022-03-09] MEDS: MAGNESIUM SULFATE-D5W PMX 1 GM in DEXTROSE/WATER 1 100ML.BAG IVPB SCH ×2 (09:58→12:13)
[2022-03-09] MEDS: LABETALOL 100 MG TAB PO SCH ×2 (10:01→20:24)
--- NOTE | 2022-03-09 15:04 | P.PN ---
Subjective Progress Note Date: 03/09/22 Principal diagnosis: R shoulder pain Patient was seen and examined. No acute events overnight. Patient reports R shoulder pain, worsened with movement. No more numbness and tingling. He reports moderate anxiety. He denies any chest pain, shortness of breath or palpitations. No nausea and vomiting. No fever or chills. Creatinine 6.14. Objective - Vital Signs Vital signs: Vital Signs Temp 98.8 F 03/09/22 09:50 Pulse 82 03/09/22 12:00 Resp 16 03/09/22 12:00 BP 134/84 03/09/22 12:00 Pulse Ox 95 03/09/22 12:00 FiO2 Intake & Output 03/08/22 03/09/22 03/09/22 18:59 06:59 18:59 Intake Total 2076 240 Output Total 2400 740 1275 Balance -324 -120 -4329 Weight 101.1 kg Intake: Intake, IV Titration 1000 Amount Sodium Chloride 0.9% 1, 1000 000 ml @ 100 mls/hr IV . Q10H [facility] Rx#:[id number] Oral 1076 240 Output: Urine 2400 740 1275 Other: Voiding Method Urinal Urinal Urinal - Exam General: [non toxic], [no distress], [appears at stated age] Derm: [warm], [dry] Head: [atraumatic], [normocephalic], [symmetric] Eyes: [EOMI], [no lid lag], [anicteric sclera] Mouth: [no lip lesion], [mucus membranes moist] Cardiovascular: [S1S2 reg], [no murmur] Lungs: [CTA bilateral], [no rhonchi, no rales] , [no accessory muscle use] Ext: [no gross muscle atrophy], [R shoulder swelling, restricted ROM due to swelling, radial pulse intact], [no contractures] Neuro: [no focal neuro deficits] Psych: [Alert], [oriented], [appropriate affect] - Labs CBC & Chem 7: 03/09/22 06:51 03/09/22 06:51 Labs: Abnormal Lab Results - Last 24 Hours (Table) 03/09/22 03/09/22 Range/Units 06:51 06:51 WBC 13.7 H (3.8-10.6) k/uL RBC 3.91 L (4.30-5.90) m/uL Hgb 12.2 L (13.0-17.5) gm/dL Hct 36.9 L (39.0-53.0) % Neutrophils # (Manual) 10.60 H (1.3-7.7) k/uL Monocytes # (Manual) 1.23 H (0-1.0) k/uL Metamyelocytes # (Man) 0.41 H (0) k/uL Myelocytes # (Manual) 0.27 H (0) k/uL Sodium 134 L (137-145) mmol/L Chloride 108 H (98-107) mmol/L Carbon Dioxide 19 L (22-30) mmol/L BUN 38 H (9-20) mg/dL Creatinine 6.14 H (0.66-1.25) mg/dL Calcium 7.8 L (8.4-10.2) mg/dL Phosphorus 5.0 H (2.5-4.5) mg/dL Assessment and Plan Assessment: #Acute rhabdomyolysis secondary to prolonged time on floor #Acute kidney injury secondary to above #Metabolic acidosis secondary to above Patient started on dialysis on 03/06/2022 Patient has dialysis catheter placed on 03/06/2022 and his right groin Status post 2 sessions of dialysis. Plans for dialysis tomorrow. Trend CPK Nephrology on board #Right arm and right lower extremity swelling and numbness secondary to myositis from rhabdomyolysis Patient states that he was drinking and passed out and when he regained c onsciousness he was lying on his right side. Right upper extremity ultrasound shows superficial thrombophlebitis. Patient seen by vascular surgery recommends elevating the hand and warm compression Right posterior venous Doppler negative for DVT and arterial Doppler negative for pseudoaneurysm. Patient's numbness is improving however still has significant swelling MRI of right shoulder and right hip that showed extensive edema and possible necrosis likely due to myositis and rhabdomyolysis Patient's imaging reviewed by orthopedic surgery and per ortho no surgical intervention needed. #Elevated troponin Likely due to rhabdomyolysis Cardiology recommended no further workup and have signed off #Alcohol withdrawal syndrome in alcohol dependent patient Benzos per CIWA scale Seizure precautions Fall precautions Patient will return to [facility] once medically stable #Elevated LFTs likely due to rhabdomyolysis versus alcoholic hepatitis and fatty liver -LFTs improving #Hypertension Controlled Resume labetalol and amlodipine DVT prophylaxis heparin subcu 3 times a day Full code
--- NOTE | 2022-03-09 16:53 | P.PN ---
Subjective Progress Note Date: 03/09/22 Principal diagnosis: R shoulder/hip pain, rhabdo Patient is a 31-year-old male seen at bedside this afternoon in consultation for right shoulder pain and swelling as well as right hip pain and swelling. He was admitted through the emergency department on 03/03/2022. He has a history of of alcohol abuse presented to the emergency department from [place]. He initially reported having numbness in his right arm as well as right hip pain. He states that the night prior he got significantly intoxicated and found himself on the floor in the morning. He was unsure how he got on the floor but assumed that he fell. He is unsure how long he had been unconscious for. He states he continues to have right shoulder pain and swelling but the numbness and tingling have improved. He continues to have right hip pain as well. He has no constant numbness/tingling or radicular symptoms. He has pain with range of motion of the right shoulder as well as the right hip. He denies calf pain. He denies fever, chills, chest pain or shortness of breath. He's had studies including x-rays of the right shoulder and hip which show no fractures. Ultrasound of the right upper extremity showed a superficial venous thrombosis. CT of the head and neck show no fractures or instability. He is being followed by nephrology as well due to acute kidney injury. 03/06/2022: The patient states that the paresthesias to the upper extremity are improving. He continues to have pain in the right shoulder and upper arm as well as the right lateral hip. MRIs are scheduled for 1:45 today. Vital signs are stable. 03/07/2022: The patient is currently having dialysis. He is evaluated at bedside. He has no new complaints or concerns today. He states that the numbness and tingling to the upper extremity is improving. He is having slight numbness to the anterior right thigh. He feels that the motion to his right arm is improving slightly. He complains of inability to move the shoulder. Vital signs are stable. Labs are minimally improved. 03/08/2022: The patient continues to complain of right shoulder and right thigh and knee pain. He states that his motion to the upper extremity is improving. He feels that his right knee is more swollen. Vital signs are stable. Labs are improving slightly. Venous and arterial Doppler ultrasound were performed yesterday which show no evidence of fluid collection, pseudoaneurysm or DVT. 03/09/2022: Patient is 31 yo male seen at bedside this am. We are following for right shoulder and hip pain after being down for extended period time from intoxication. He continues to have pain but feels it is improving at the right shoulder and hip. He feels his range of motion is improved some. He denies numbness or tingling. He denies fever or chills. He continues to receive dialysis. He has no new complaints Objective - Vital Signs Vital signs: Vital Signs Temp 98.8 F 03/09/22 09:50 Pulse 82 03/09/22 12:00 Resp 16 03/09/22 12:00 BP 134/84 03/09/22 12:00 Pulse Ox 95 03/09/22 12:00 FiO2 Intake & Output 03/08/22 03/09/22 03/09/22 18:59 06:59 18:59 Intake Total 2076 240 Output Total 2400 740 1600 Balance -324 -740 -1360 Weight 101.1 kg Intake: Intake, IV Titration 1000 Amount Sodium Chloride 0.9% 1, 1000 000 ml @ 100 mls/hr IV . Q10H [facility] Rx#:[id number] Oral 1076 240 Output: Urine 2400 740 1600 Other: Voiding Method Urinal Urinal Urinal - Exam Exam of the upper extremity shows improved soft tissue swelling to the shoulder and anterior chest. There is no erythema. It is not hot to touch. The shoulder is tight but slightly compressible about the deltoid. Biceps is soft and nontender. Motion is limited to the shoulder continues to be be improved. He is able to forward flex to about 100. He has improved motion to the elbow, wrist and fingers. He has full wrist and thumb extension without difficulty or pain. Good strength against resistance to the wrist and thumb. Exam the lower extremities reveals tenderness with palpation about the lateral hip in the region of the greater trochanter. Mild to moderate swelling, essentially unchanged from yesterday's exam. There is no erythema. There is m ild swelling about the knee, minimal joint effusion. No hip irritability with passive internal/external rotation. He has full foot and ankle motion bilaterally. Neurovascular status to the lower extremities intact. Calf is SNT - Constitutional General appearance: Present: no acute distress - Labs CBC & Chem 7: 03/09/22 06:51 03/09/22 06:51 Labs: Abnormal Lab Results - Last 24 Hours (Table) 03/09/22 03/09/22 Range/Units 06:51 06:51 WBC 13.7 H (3.8-10.6) k/uL RBC 3.91 L (4.30-5.90) m/uL Hgb 12.2 L (13.0-17.5) gm/dL Hct 36.9 L (39.0-53.0) % Neutrophils # (Manual) 10.60 H (1.3-7.7) k/uL Monocytes # (Manual) 1.23 H (0-1.0) k/uL Metamyelocytes # (Man) 0.41 H (0) k/uL Myelocytes # (Manual) 0.27 H (0) k/uL Sodium 134 L (137-145) mmol/L Chloride 108 H (98-107) mmol/L Carbon Dioxide 19 L (22-30) mmol/L BUN 38 H (9-20) mg/dL Creatinine 6.14 H (0.66-1.25) mg/dL Calcium 7.8 L (8.4-10.2) mg/dL Phosphorus 5.0 H (2.5-4.5) mg/dL Assessment and Plan (1) Right shoulder pain Narrative/Plan: He is continuing to improve with motion to the upper extremity. He does not appear to have a deficit. No plans for immediate surgical intervention. He is encouraged to continue working on gentle range of motion of the upper extremity. Continue pain management and medical management. We will continue to follow. Current Visit: Yes Status: Acute Priority: Medium Code(s): M25.511 - PAIN IN RIGHT SHOULDER SNOMED Code(s): 32977863 (2) Right hip pain Current Visit: Yes Status: Acute Priority: Medium Code(s): M25.551 - PAIN IN RIGHT HIP SNOMED Code(s): 50744557 (3) Rhabdomyolysis Current Visit: Yes Status: Acute Priority: Medium Code(s): M62.82 - RHABDOMYOLYSIS SNOMED Code(s): 815709389
[2022-03-09] MEDS: MORPHINE SULFATE 2 MG/ML SYRINGE IVP PRN (17:59)
[2022-03-10] MEDS: PANTOPRAZOLE 40 MG TABLET PO SCH (06:48)
[2022-03-10] MEDS: SODIUM CHLORIDE 0.9% 1,000 ML IV SCH ×2 (06:48→12:10)
[2022-03-10] MEDS: THIAMINE 100 MG TAB PO SCH ×2 (06:48→17:17)
[2022-03-10] MEDS: PREGABALIN 25 MG CAP PO SCH ×2 (08:39→20:29)
[2022-03-10] MEDS: HEPARIN SODIUM,PORCINE/PF 5,000 UNIT/0.5 ML SYRINGE SQ SCH ×2 (08:39→15:24)
[2022-03-10] MEDS: SODIUM BICARBONATE TAB 650 MG TAB PO SCH ×3 (08:39→20:29)
[2022-03-10] MEDS: LABETALOL 100 MG TAB PO SCH ×2 (08:39→21:34)
[2022-03-10] MEDS: amLODIPine 10 MG TAB PO SCH (08:39)
[2022-03-10] MEDS: MORPHINE SULFATE 2 MG/ML SYRINGE IVP PRN (08:40)
[2022-03-10 09:05] LABS: Calcium 8.4 mg/dL (8.4-10.2); Magnesium 1.9 mg/dL (1.6-2.3); Phosphorus 5.7 mg/dL (2.5-4.5); Potassium 4.5 mmol/L (3.5-5.1)
--- NOTE | 2022-03-10 09:14 | P.PN ---
Subjective Patient is seen in follow-up for acute kidney injury. Last hemodialysis was 03/07/2022. Urine output over 3 L in the last 24 hours. Oral intake is good. No active complaints. Vital signs are stable. General: Awake. No acute distress. HEENT: Head exam is unremarkable. LUNGS: Breath sounds decreased. HEART: Rate and Rhythm are regular. ABDOMEN: Soft, no distention. EXTREMITITES: No edema left lower extremity. 1+ edema right lower extremity. Objective - Vital Signs Vital signs: Vital Signs Temp 98.7 F 03/09/22 20:00 Pulse 84 03/10/22 04:00 Resp 16 03/10/22 04:00 BP 128/76 03/10/22 04:00 Pulse Ox 97 03/10/22 04:00 FiO2 Intake & Output 03/09/22 03/10/22 03/10/22 18:59 06:59 18:59 Intake Total 360 1485 Output Total 1600 2100 375 Balance -1240 -615 -375 Weight 101.5 kg Intake: Intake, IV Titration 1000 Amount Sodium Chloride 0.9% 1, 1000 000 ml @ 100 mls/hr IV . Q10H [facility] Rx#:[id number] Oral 360 485 Output: Urine 1600 2100 375 Other: Voiding Method Urinal Urinal - Labs CBC & Chem 7: 03/09/22 06:51 03/09/22 06:51 Labs: Abnormal Lab Results - Last 24 Hours (Table) 03/09/22 Range/Units 06:51 Neutrophils # (Manual) 10.60 H (1.3-7.7) k/uL Monocytes # (Manual) 1.23 H (0-1.0) k/uL Metamyelocytes # (Man) 0.41 H (0) k/uL Myelocytes # (Manual) 0.27 H (0) k/uL Assessment and Plan Plan: Assessment: 1. Acute kidney injury secondary to ATN secondary to rhabdomyolysis. Unknown baseline renal function. Creatinine was 2.24 on admission and peaked at 7.34. Started on hemodialysis this admission with last treatment on 03/07/2022. Nonoliguric. 2. Rhabdomyolysis secondary to fall. CK levels trending down. 3. Alcohol abuse. 4. Hypovolemic hyponatremia. Improved. 5. Metabolic acidosis secondary to acute kidney injury and IV fluids. On oral bicarb. 6. Hypomagnesemia from poor intake and alcohol abuse. Replaced. 7. Hyperphosphatemia secondary to acute kidney injury. Improved. 8. Benign hypertension. Controlled. Plan: Continue to assess for need for hemodialysis on a daily basis. Maintain normal saline - decrease rate to 50 mL an hour. Avoid nephrotoxins. Strict I's and O's. Follow-up morning labs.
[2022-03-10 11:26] VITALS: BMI 35.0
[2022-03-10] MEDS: CALCIUM ACETATE 667 MG TAB PO SCH ×2 (12:09→17:17)
[2022-03-10] MEDS: ACETAMINOPHEN TAB 325 MG TAB PO PRN (12:10)
[2022-03-10] MEDS ORDERED: HYDROmorphone 0.5 MG/0.5 ML SYRINGE IVP PRN ×2 (13:43)
[2022-03-10] MEDS ORDERED: traMADol 50 MG TAB PO PRN (13:45)
--- NOTE | 2022-03-10 13:58 | P.PN ---
Subjective Progress Note Date: 03/10/22 Principal diagnosis: R shoulder/hip pain, rhabdo Patient is a 31-year-old male seen at bedside this afternoon in consultation for right shoulder pain and swelling as well as right hip pain and swelling. He was admitted through the emergency department on 03/03/2022. He has a history of of alcohol abuse presented to the emergency department from [place]. He initially reported having numbness in his right arm as well as right hip pain. He states that the night prior he got significantly intoxicated and found himself on the floor in the morning. He was unsure how he got on the floor but assumed that he fell. He is unsure how long he had been unconscious for. He states he continues to have right shoulder pain and swelling but the numbness and tingling have improved. He continues to have right hip pain as well. He has no constant numbness/tingling or radicular symptoms. He has pain with range of motion of the right shoulder as well as the right hip. He denies calf pain. He denies fever, chills, chest pain or shortness of breath. He's had studies including x-rays of the right shoulder and hip which show no fractures. Ultrasound of the right upper extremity showed a superficial venous thrombosis. CT of the head and neck show no fractures or instability. He is being followed by nephrology as well due to acute kidney injury. 03/06/2022: The patient states that the paresthesias to the upper extremity are improving. He continues to have pain in the right shoulder and upper arm as well as the right lateral hip. MRIs are scheduled for 1:45 today. Vital signs are stable. 03/07/2022: The patient is currently having dialysis. He is evaluated at bedside. He has no new complaints or concerns today. He states that the numbness and tingling to the upper extremity is improving. He is having slight numbness to the anterior right thigh. He feels that the motion to his right arm is improving slightly. He complains of inability to move the shoulder. Vital signs are stable. Labs are minimally improved. 03/08/2022: The patient continues to complain of right shoulder and right thigh and knee pain. He states that his motion to the upper extremity is improving. He feels that his right knee is more swollen. Vital signs are stable. Labs are improving slightly. Venous and arterial Doppler ultrasound were performed yesterday which show no evidence of fluid collection, pseudoaneurysm or DVT. 03/09/2022: Patient is 31 yo male seen at bedside this am. We are following for right shoulder and hip pain after being down for extended period time from intoxication. He continues to have pain but feels it is improving at the right shoulder and hip. He feels his range of motion is improved some. He denies numbness or tingling. He denies fever or chills. He continues to receive dialysis. He has no new complaints 03/10/22: No significant change from yesterday. Objective - Vital Signs Vital signs: Vital Signs Temp 98.6 F 03/10/22 08:00 Pulse 86 03/10/22 08:00 Resp 16 03/10/22 08:00 BP 131/86 03/10/22 08:00 Pulse Ox 98 03/10/22 08:00 FiO2 Intake & Output 03/09/22 03/10/22 03/10/22 18:59 06:59 18:59 Intake Total 360 1485 342 Output Total 1600 2100 1025 Balance -1240 -615 -683 Weight 101.5 kg 101.5 kg Intake: Intake, IV Titration 1000 Amount Sodium Chloride 0.9% 1, 1000 000 ml @ 50 mls/hr IV . Q20H [facility] Rx#:[id number] Oral 360 485 342 Output: Urine 1600 2100 1025 Other: Voiding Method Urinal Urinal Urinal - Exam Exam of the upper extremity shows improved soft tissue swelling to the shoulder and anterior chest. There is no erythema. It is not hot to touch. The shoulder is tight but slightly compressible about the deltoid. Biceps is soft and nontender. Motion is limited to the shoulder continues to be be improved. He is able to forward flex to about 100. He has improved motion to the elbow, wrist and fingers. He has full wrist and thumb extension without difficulty or pain. Good strength against resistance to the wrist and thumb. Exam the lower extremities reveals tenderness with palpation about the lateral hip in the region of the greater trochanter. Mild to moderate swelling, essentially unchanged from yesterday's exam. There is no erythema. There is mild swelling about the knee, minimal joint effusion. No hip irritability with passive internal/external rotation. He has full foot and ankle motion bilaterally. Neurovascular status to the lower extremities intact. Calf is SNT - Constitutional General appearance: Present: no acute distress - Labs CBC & Chem 7: 03/09/22 06:51 03/10/22 07:34 Labs: Abnormal Lab Results - Last 24 Hours (Table) 03/10/22 Range/Units 07:34 BUN 39 H (9-20) mg/dL Creatinine 5.64 H (0.66-1.25) mg/dL Phosphorus 5.7 H (2.5-4.5) mg/dL Creatine Kinase 9881 H* (55-170) U/L Assessment and Plan (1) Right shoulder pain Narrative/Plan: He is continuing to improve or stable with motion to the upper and lower right extremity. He does not appear to have a deficit neurologically. No plans for immediate surgical intervention. He is encouraged to continue working on gentle range of motion of the upper and lower extremity. Continue pain management where we will adjust meds some to try to achieve better pain control within reason keeping in mind his kidney injury and history of substance/alcohol abuse may limit options. Continue medical management. Elevate right upper and lower extremity. We will continue to follow. Current Visit: Yes Status: Acute Priority: Medium Code(s): M25.511 - PAIN IN RIGHT SHOULDER SNOMED Code(s): 09857668 (2) Right hip pain Current Visit: Yes Status: Acute Priority: Medium Code(s): M25.551 - PAIN IN RIGHT HIP SNOMED Code(s): 06838025 (3) Rhabdomyolysis Current Visit: Yes Status: Acute Priority: Medium Code(s): M62.82 - RHA BDOMYOLYSIS SNOMED Code(s): 029426715
--- NOTE | 2022-03-10 14:41 | P.PN ---
Subjective Progress Note Date: 03/10/22 Principal diagnosis: R shoulder pain Patient was seen and examined. No acute events overnight. Patient reports R shoulder pain, worsened with movement, slightly improved from yesterday. He reports moderate anxiety. He denies any chest pain, shortness of breath or palpitations. No nausea and vomiting. No fever or chills. Creatinine 5.64. CPK 9881. Objective - Vital Signs Vital signs: Vital Signs Temp 98.4 F 03/10/22 12:00 Pulse 84 03/10/22 12:00 Resp 16 03/10/22 12:00 BP 136/89 03/10/22 12:00 Pulse Ox 98 03/10/22 12:00 FiO2 Intake & Output 03/09/22 03/10/22 03/10/22 18:59 06:59 18:59 Intake Total 360 1485 342 Output Total 1600 2100 1025 Balance -1240 -615 -683 Weight 101.5 kg 101.5 kg Intake: Intake, IV Titration 1000 Amount Sodium Chloride 0.9% 1, 1000 000 ml @ 50 mls/hr IV . Q20H [facility] Rx#:[id number] Oral 360 485 342 Output: Urine 1600 2100 1025 Other: Voiding Method Urinal Urinal Urinal - Exam General: [non toxic], [no distress], [appears at stated age] Derm: [warm], [dry] Head: [atraumatic], [normocephalic], [symmetric] Eyes: [EOMI], [no lid lag], [anicteric sclera] Mouth: [no lip lesion], [mucus membranes moist] Cardiovascular: [S1S2 reg], [no murmur] Lungs: [CTA bilateral], [no rhonchi, no rales] , [no accessory muscle use] Ext: [no gross muscle atrophy], [R shoulder swelling, restricted ROM due to swelling, radial pulse intact], [no contractures] Neuro: [no focal neuro deficits] Psych: [Alert], [oriented], [appropriate affect] - Labs CBC & Chem 7: 03/09/22 06:51 03/10/22 07:34 Labs: Abnormal Lab Results - Last 24 Hours (Table) 03/10/22 Range/Units 07:34 BUN 39 H (9-20) mg/dL Creatinine 5.64 H (0.66-1.25) mg/dL Phosphorus 5.7 H (2.5-4.5) mg/dL Creatine Kinase 9881 H* (55-170) U/L Assessment and Plan Assessment: #Acute rhabdomyolysis secondary to prolonged time on floor #Acute kidney injury secondary to above #Metabolic acidosis secondary to above Patient started on dialysis on 03/06/2022 Patient has dialysis catheter placed on 03/06/2022 and his right groin Status post 2 sessions of dialysis. Holding dialysis yesterday and today. Trend CPK Nephrology on board #Right arm and right lower extremity swelling and numbness secondary to myositis from rhabdomyolysis Patient states that he was drinking and passed out and when he regained consciousness he was lying on his right side. Right upper extremity ultrasound shows superficial thrombophlebitis. Patient seen by vascular surgery recommends elevating the hand and warm compression Right posterior venous Doppler negative for DVT and arterial Doppler negative for pseudoaneurysm. Patient's numbness is improving however still has significant swelling MRI of right shoulder and right hip that showed extensive edema and possible necrosis likely due to myositis and rhabdomyolysis Patient's imaging reviewed by orthopedic surgery and per ortho no surgical intervention needed. #Elevated troponin Likely due to rhabdomyolysis Cardiology recommended no further workup and have signed off #Alcohol withdrawal syndrome in alcohol dependent patient Benzos per CIWA scale Seizure precautions Fall precautions Patient will return to [facility] once medically stable #Elevated LFTs likely due to rhabdomyolysis versus alcoholic hepatitis and fatty liver -LFTs improving #Hypertension Controlled Resume labetalol and amlodipine DVT prophylaxis heparin subcu 3 times a day Full code
[2022-03-10] MEDS: LORazepam 2 MG/ML INJ IV PRN (15:23)
[2022-03-10] MEDS: oxyCODONE-APAP 10-325MG 1 EACH TAB PO PRN (20:29)
[2022-03-11] MEDS: HEPARIN SODIUM,PORCINE/PF 5,000 UNIT/0.5 ML SYRINGE SQ SCH ×3 (00:33→15:06)
[2022-03-11] MEDS: HYDROmorphone 1 MG/ML 1 ML SYRINGE IVP PRN ×3 (00:59→16:02)
[2022-03-11] MEDS: THIAMINE 100 MG TAB PO SCH ×2 (07:02→15:07)
[2022-03-11] MEDS: PANTOPRAZOLE 40 MG TABLET PO SCH (07:02)
[2022-03-11] MEDS: CALCIUM ACETATE 667 MG TAB PO SCH ×2 (07:02→15:07)
[2022-03-11] MEDS: SODIUM BICARBONATE TAB 650 MG TAB PO SCH ×3 (08:22→21:43)
[2022-03-11] MEDS: amLODIPine 10 MG TAB PO SCH (08:22)
[2022-03-11] MEDS: LABETALOL 100 MG TAB PO SCH ×2 (08:22→21:43)
[2022-03-11] MEDS: PREGABALIN 25 MG CAP PO SCH ×2 (08:22→21:43)
--- NOTE | 2022-03-11 08:37 | P.PN ---
Subjective Patient is seen in follow-up for acute kidney injury. Last hemodialysis was 03/07/2022. Urine output over 4 L in the last 24 hours. Oral intake is good. No active complaints. Vital signs are stable. General: Awake. No acute distress. HEENT: Head exam is unremarkable. LUNGS: Breath sounds decreased. HEART: Rate and Rhythm are regular. ABDOMEN: Soft, no distention. EXTREMITITES: No edema left lower extremity. 1+ edema right lower extremity. Objective - Vital Signs Vital signs: Vital Signs Temp 98.1 F 03/11/22 08:00 Pulse 84 03/11/22 08:00 Resp 18 03/11/22 08:00 BP 141/98 03/11/22 08:00 Pulse Ox 97 03/11/22 08:00 FiO2 Intake & Output 03/10/22 03/11/22 03/11/22 18:59 06:59 18:59 Intake Total 1646 Output Total 2325 2500 Balance -679 -2500 Weight 101.5 kg 101.7 kg Intake: Oral 1646 Output: Urine 2325 2500 Other: Voiding Method Urinal Urinal - Labs CBC & Chem 7: 03/09/22 06:51 03/10/22 07:34 Labs: Abnormal Lab Results - Last 24 Hours (Table) 03/10/22 Range/Units 07:34 BUN 39 H (9-20) mg/dL Creatinine 5.64 H (0.66-1.25) mg/dL Phosphorus 5.7 H (2.5-4.5) mg/dL Creatine Kinase 9881 H* (55-170) U/L Assessment and Plan Plan: Assessment: 1. Acute kidney injury secondary to ATN secondary to rhabdomyolysis. Unknown baseline renal function. Creatinine was 2.24 on admission and peaked at 7.34. Started on hemodialysis this admission with last treatment on 03/07/2022. Nonoliguric. 2. Rhabdomyolysis secondary to fall. CK levels trending down. 3. Alcohol abuse. 4. Hypovolemic hyponatremia. Improved. 5. Metabolic acidosis secondary to acute kidney injury and IV fluids. On oral bicarb. Improved. 6. Hypomagnesemia from poor intake and alcohol abuse. Replaced. 7. Hyperphosphatemia secondary to acute kidney injury. On PhosLo. 8. Benign hypertension. Controlled. Plan: Continue to assess need for hemodialysis on a daily basis. Maintain normal saline at 50 mL an hour. Avoid nephrotoxins. Strict I's and O's. Follow-up morning labs. If renal function continues to improve, will discontinue dialysis catheter tomorrow.
[2022-03-11] MEDS: oxyCODONE-APAP 10-325MG 1 EACH TAB PO PRN ×2 (12:00→18:04)
[2022-03-11 12:59] LABS: Calcium 8.5 mg/dL (8.4-10.2)
[2022-03-11 13:05] LABS: Magnesium 1.6 mg/dL (1.6-2.3)
[2022-03-11] MEDS: LORazepam 2 MG/ML INJ IV PRN ×2 (13:11→21:44)
[2022-03-11] MEDS: SODIUM CHLORIDE 0.9% 1,000 ML IV SCH (13:17)
--- NOTE | 2022-03-11 14:32 | P.PN ---
Subjective Progress Note Date: 03/11/22 Principal diagnosis: R shoulder pain Patient was seen and examined. No acute events overnight. Patient reports R shoulder pain, worsened with movement, slightly improved from yesterday. He is encouraged to be regular with his Percocet. He denies any chest pain, shortness of breath or palpitations. No nausea and vomiting. No fever or chills. Creatinine is 4.87. Objective - Vital Signs Vital signs: Vital Signs Temp 98.1 F 03/11/22 14:27 Pulse 87 03/11/22 14:27 Resp 18 03/11/22 14:27 BP 124/86 03/11/22 14:27 Pulse Ox 97 03/11/22 14:27 FiO2 Intake & Output 03/10/22 03/11/22 03/11/22 18:59 06:59 18:59 Intake Total 1646 Output Total 2325 2500 1000 Balance -679 -2500 -1000 Weight 101.5 kg 101.7 kg Intake: Oral 1646 Output: Urine 2325 2500 1000 Other: Voiding Method Urinal Urinal - Exam General: [non toxic], [no distress], [appears at stated age] Derm: [warm], [dry] Head: [atraumatic], [normocephalic], [symmetric] Eyes: [EOMI], [no lid lag], [anicteric sclera] Mouth: [no lip lesion], [mucus membranes moist] Cardiovascular: [S1S2 reg], [no murmur] Lungs: [CTA bilateral], [no rhonchi, no rales] , [no accessory muscle use] Ext: [no gross muscle atrophy], [R shoulder swelling, restricted ROM due to swelling, radial pulse intact], [no contractures] Neuro: [no focal neuro deficits] Psych: [Alert], [oriented], [appropriate affect] - Labs CBC & Chem 7: 03/09/22 06:51 03/11/22 11:55 Labs: Abnormal Lab Results - Last 24 Hours (Table) 03/11/22 Range/Units 11:55 Sodium 136 L (137-145) mmol/L BUN 40 H (9-20) mg/dL Creatinine 4.87 H (0.66-1.25) mg/dL Assessment and Plan Assessment: #Acute rhabdomyolysis secondary to prolonged time on floor #Acute kidney injury secondary to above #Metabolic acidosis secondary to above Patient started on dialysis on 03/06/2022 Patient has dialysis catheter placed on 03/06/2022 and his right groin Status post 2 sessions of dialysis. Holding dialysis for now while monitoring renal function Nephrology on board #Right arm and right lower extremity swelling and numbness secondary to myositis from rhabdomyolysis Patient states that he was drinking and passed out and when he regained consciousness he was lying on his right side. Right upper extremity ultrasound shows superficial thrombophlebitis. Patient seen by vascular surgery recommends elevating the hand and warm compression Right posterior venous Doppler negative for DVT and arterial Doppler negative for pseudoaneurysm. Patient's numbness is improving however still has significant swelling MRI of right shoulder and right hip that showed extensive edema and possible necrosis likely due to myositis and rhabdomyolysis Patient's imaging reviewed by orthopedic surgery and per ortho no surgical intervention needed. #Elevated troponin Likely due to rhabdomyolysis Cardiology recommended no further workup and have signed off #Alcohol withdrawal syndrome in alcohol dependent patient Benzos per CIWA scale Seizure precautions Fall precautions Patient will return to [facility] once medically stable #Elevated LFTs likely due to rhabdomyolysis versus alcoholic hepatitis and fatty liver -LFTs improving #Hypertension Controlled Resume labetalol and amlodipine DVT prophylaxis heparin subcu 3 times a day Full code
[2022-03-11] MEDS: MAGNESIUM SULFATE-D5W PMX 1 GM in DEXTROSE/WATER 1 100ML.BAG IVPB SCH ×2 (15:07→15:08)
[2022-03-12] MEDS: oxyCODONE-APAP 10-325MG 1 EACH TAB PO PRN ×4 (00:09→18:29)
[2022-03-12] MEDS: HEPARIN SODIUM,PORCINE/PF 5,000 UNIT/0.5 ML SYRINGE SQ SCH ×4 (00:11→22:59)
[2022-03-12] MEDS: CALCIUM ACETATE 667 MG TAB PO SCH ×2 (06:35→17:12)
[2022-03-12] MEDS: THIAMINE 100 MG TAB PO SCH ×2 (06:36→17:12)
[2022-03-12] MEDS: PANTOPRAZOLE 40 MG TABLET PO SCH (06:36)
[2022-03-12] MEDS: HYDROmorphone 1 MG/ML 1 ML SYRINGE IVP PRN ×2 (08:41→20:52)
[2022-03-12] MEDS: LORazepam 2 MG/ML INJ IV PRN ×2 (08:41→18:29)
[2022-03-12] MEDS: amLODIPine 10 MG TAB PO SCH (08:42)
[2022-03-12] MEDS: SODIUM BICARBONATE TAB 650 MG TAB PO SCH ×3 (08:42→20:52)
[2022-03-12] MEDS: PREGABALIN 25 MG CAP PO SCH ×2 (08:43→20:52)
[2022-03-12] MEDS: SODIUM CHLORIDE 0.9% 1,000 ML IV SCH ×2 (08:43→23:02)
[2022-03-12] MEDS: DOCUSATE 100 MG CAP PO SCH (08:43)
[2022-03-12] MEDS: LABETALOL 100 MG TAB PO SCH ×2 (08:43→20:52)
--- NOTE | 2022-03-12 08:51 | P.PN ---
Subjective Patient is seen in follow-up for acute kidney injury. Last hemodialysis was 03/07/2022. Urine output over 3 L in the last 24 hours. Oral intake is good. No active complaints. Vital signs are stable. General: Awake. No acute distress. HEENT: Head exam is unremarkable. LUNGS: Breath sounds decreased. HEART: Rate and Rhythm are regular. ABDOMEN: Soft, no distention. EXTREMITITES: No edema left lower extremity. 1+ edema right lower extremity. Objective - Vital Signs Vital signs: Vital Signs Temp 97.8 F 03/12/22 04:00 Pulse 96 03/12/22 04:00 Resp 18 03/12/22 04:00 BP 149/97 03/12/22 04:00 Pulse Ox 96 03/12/22 07:59 FiO2 Intake & Output 03/11/22 03/12/22 03/12/22 18:59 06:59 18:59 Intake Total 180 Output Total 1000 2100 Balance -1000 -2100 180 Weight 102.6 kg Intake: Oral 180 Output: Urine 1000 2100 Other: Voiding Method Urinal - Labs CBC & Chem 7: 03/09/22 06:51 03/11/22 11:55 Labs: Abnormal Lab Results - Last 24 Hours (Table) 03/11/22 Range/Units 11:55 Sodium 136 L (137-145) mmol/L BUN 40 H (9-20) mg/dL Creatinine 4.87 H (0.66-1.25) mg/dL Assessment and Plan Plan: Assessment: 1. Acute kidney injury secondary to ATN secondary to rhabdomyolysis. Unknown baseline renal function. Creatinine was 2.24 on admission and peaked at 7.34. Started on hemodialysis this admission with last treatment on 03/07/2022. Creatinine trending down - 4.87 yesterday. Nonoliguric. 2. Rhabdomyolysis secondary to fall. CK levels trending down. 3. Alcohol abuse. 4. Hypovolemic hyponatremia. Improved. 5. Metabolic acidosis secondary to acute kidney injury and IV fluids. On oral bicarb. Improved. 6. Hypomagnesemia from poor intake and alcohol abuse. Replaced. 7. Hyperphosphatemia secondary to acute kidney injury. On PhosLo. 8. Benign hypertension. Stable. Plan: Continue to assess need for hemodialysis on a daily basis. I expect no further need for renal replacement therapy. Maintain normal saline at 50 mL an hour. Avoid nephrotoxins. Strict I's and O's. Follow-up morning labs. Repeat phosphorus level as well.
[2022-03-12 10:58] LABS: Basophils # (A) 0.1 k/uL (0-0.2); Basophils % (A) 1 %; Eosinophils # (A) 0.3 k/uL (0-0.7); Eosinophils % (A) 2 %; HCT 36.2 % (39.0-53.0); HGB 11.5 gm/dL (13.0-17.5); Lymphocytes # (A) 1.8 k/uL (1.0-4.8); Lymphocytes % (A) 14 %; MCH 31.4 pg (25.0-35.0); MCHC 31.8 g/dL (31.0-37.0); MCV 98.8 fL (80.0-100.0); Mean Platelet Volume 7.5; Monocytes # (A) 0.7 k/uL (0-1.0); Monocytes % (A) 5 %; Neutrophils % (A) 77 %; Platelet Count 411 k/uL (150-450); RBC 3.67 m/uL (4.30-5.90); RDW 13.9 % (11.5-15.5)
[2022-03-12 11:21] LABS: Calcium 8.6 mg/dL (8.4-10.2); Magnesium 1.7 mg/dL (1.6-2.3); Potassium 4.8 mmol/L (3.5-5.1)
--- NOTE | 2022-03-12 11:36 | P.PN ---
Subjective Progress Note Date: 03/12/22 Principal diagnosis: R shoulder pain Patient was seen and examined. No acute events overnight. Patient reports R shoulder pain, worsened with movement, slightly improved from yesterday. He is encouraged to be regular with his Percocet. He denies any chest pain, shortness of breath or palpitations. No nausea and vomiting. No fever or chills. Creatinine is 4.28. Objective - Vital Signs Vital signs: Vital Signs Temp 98.2 F 03/12/22 08:30 Pulse 94 03/12/22 08:30 Resp 18 03/12/22 08:30 BP 144/82 03/12/22 08:30 Pulse Ox 96 03/12/22 08:30 FiO2 Intake & Output 03/11/22 03/12/22 03/12/22 18:59 06:59 18:59 Intake Total 180 Output Total 1000 2100 Balance -1000 -2100 180 Weight 102.6 kg Intake: Oral 180 Output: Urine 1000 2100 Other: Voiding Method Urinal - Exam General: [non toxic], [no distress], [appears at stated age] Derm: [warm], [dry] Head: [atraumatic], [normocephalic], [symmetric] Eyes: [EOMI], [no lid lag], [anicteric sclera] Mouth: [no lip lesion], [mucus membranes moist] Cardiovascular: [S1S2 reg], [no murmur] Lungs: [CTA bilateral], [no rhonchi, no rales] , [no accessory muscle use] Ext: [no gross muscle atrophy], [R shoulder swelling, restricted ROM due to swelling, radial pulse intact], [no contractures] Neuro: [no focal neuro deficits] Psych: [Alert], [oriented], [appropriate affect] - Labs CBC & Chem 7: 03/12/22 10:14 03/12/22 10:14 Labs: Abnormal Lab Results - Last 24 Hours (Table) 03/11/22 03/12/22 03/12/22 Range/Units 11:55 10:14 10:14 WBC 13.0 H (3.8-10.6) k/uL RBC 3.67 L (4.30-5.90) m/uL Hgb 11.5 L (13.0-17.5) gm/dL Hct 36.2 L (39.0-53.0) % Neutrophils # 10.0 H (1.3-7.7) k/uL Sodium 136 L 135 L (137-145) mmol/L BUN 40 H 36 H (9-20) mg/dL Creatinine 4.87 H 4.28 H (0.66-1.25) mg/dL Assessment and Plan Assessment: #Acute rhabdomyolysis secondary to prolonged time on floor #Acute kidney injury secondary to above #Metabolic acidosis secondary to above Patient started on dialysis on 03/06/2022 Patient has dialysis catheter placed on 03/06/2022 and his right groin Status post 2 sessions of dialysis. Holding dialysis for now while monitoring renal function Nephrology on board Case discussed with Dr. Morrow, plans to remove dialysis catheter tomorrow and DC to [place] if Cr continues to trend down #Right arm and right lower extremity swelling and numbness secondary to myositis from rhabdomyolysis Patient states that he was drinking and passed out and when he regained consciousness he was lying on his right side. Right upper extremity ultrasound shows superficial thrombophlebitis. Patient seen by vascular surgery recommends elevating the hand and warm compression Right posterior venous Doppler negative for DVT and arterial Doppler negative for pseudoaneurysm. Patient's numbness is improving however still has significant swelling MRI of right shoulder and right hip that showed extensive edema and possible necrosis likely due to myositis and rhabdomyolysis Patient's imaging reviewed by orthopedic surgery and per ortho no surgical intervention needed. #Elevated troponin Likely due to rhabdomyolysis Cardiology recommended no further workup and have signed off #Alcohol withdrawal syndrome in alcohol dependent patient Benzos per CIWA scale Seizure precautions Fall precautions Patient will return to [place] once medically stable #Elevated LFTs likely due to rhabdomyolysis versus alcoholic hepatitis and fatty liver -LFTs improving #Hypertension Controlled Resume labetalol and amlodipine DVT prophylaxis heparin subcu 3 times a day Full code
[2022-03-13] MEDS: oxyCODONE-APAP 10-325MG 1 EACH TAB PO PRN ×5 (00:15→21:44)
[2022-03-13] MEDS: LORazepam 2 MG/ML INJ IV PRN (03:50)
[2022-03-13] MEDS: PANTOPRAZOLE 40 MG TABLET PO SCH (06:44)
[2022-03-13] MEDS: THIAMINE 100 MG TAB PO SCH ×2 (06:44→16:46)
[2022-03-13] MEDS: CALCIUM ACETATE 667 MG TAB PO SCH ×2 (06:44→16:49)
--- NOTE | 2022-03-13 08:44 | P.PN ---
Subjective Patient is seen in follow-up for acute kidney injury. Last hemodialysis was 03/07/2022. Nonoliguric. Oral intake is good. No active complaints. Vital signs are stable. General: Awake. No acute distress. HEENT: Head exam is unremarkable. LUNGS: Breath sounds decreased. HEART: Rate and Rhythm are regular. ABDOMEN: Soft, no distention. EXTREMITITES: No edema left lower extremity. 1+ edema right lower extremity. Objective - Vital Signs Vital signs: Vital Signs Temp 98.5 F 03/13/22 03:41 Pulse 90 03/13/22 03:41 Resp 18 03/13/22 03:41 BP 137/93 03/13/22 03:41 Pulse Ox 98 03/13/22 03:41 FiO2 Intake & Output 03/12/22 03/13/22 03/13/22 18:59 06:59 18:59 Intake Total 1170 20 180 Output Total 850 1750 1200 Balance 320 -1730 -1020 Intake: IV 630 20 Invasive Line 5 30 20 Sodium Chloride 0.9% 1, 600 000 ml @ 50 mls/hr IV . Q20H [facility] Rx#:[id number] Oral 540 180 Output: Urine 850 1750 1200 Other: Voiding Method Urinal Urinal # Voids 2 - Labs CBC & Chem 7: 03/12/22 10:14 03/12/22 10:14 Labs: Abnormal Lab Results - Last 24 Hours (Table) 03/12/22 03/12/22 Range/Units 10:14 10:14 WBC 13.0 H (3.8-10.6) k/uL RBC 3.67 L (4.30-5.90) m/uL Hgb 11.5 L (13.0-17.5) gm/dL Hct 36.2 L (39.0-53.0) % Neutrophils # 10.0 H (1.3-7.7) k/uL Sodium 135 L (137-145) mmol/L BUN 36 H (9-20) mg/dL Creatinine 4.28 H (0.66-1.25) mg/dL Assessment and Plan Plan: Assessment: 1. Acute kidney injury secondary to ATN secondary to rhabdomyolysis. Unknown baseline renal function. Creatinine was 2.24 on admission and peaked at 7.34. Started on hemodialysis this admission with last treatment on 03/07/2022. Creatinine trending down - 4.28 yesterday. Nonoliguric. 2. Rhabdomyolysis secondary to fall. CK levels trending down. 3. Alcohol abuse. 4. Hypovolemic hyponatremia. Improved. 5. Metabolic acidosis secondary to acute kidney injury and IV fluids. On oral bicarb. Improved. 6. Hypomagnesemia from poor intake and alcohol abuse. Replaced. 7. Hyperphosphatemia secondary to acute kidney injury. On PhosLo. 8. Benign hypertension. Stable. Plan: Continue to assess need for hemodialysis on a daily basis. I expect no further need for renal replacement therapy. Maintain normal saline at 50 mL an hour. Avoid nephrotoxins, incl NSAIDs. Strict I's and O's. Follow-up morning labs. If renal function continues to improve, DC dialysis catheter today. Possible discharge today as well. Repeat BMP and magnesium level on 03/16/2022 and follow up outpatient in 1 week. He was also advised to follow-up with his PCP next week.
[2022-03-13] MEDS: PREGABALIN 25 MG CAP PO SCH ×2 (09:27→19:33)
[2022-03-13] MEDS: amLODIPine 10 MG TAB PO SCH (09:27)
[2022-03-13] MEDS: HEPARIN SODIUM,PORCINE/PF 5,000 UNIT/0.5 ML SYRINGE SQ SCH ×3 (09:28→23:23)
[2022-03-13] MEDS: LABETALOL 100 MG TAB PO SCH ×2 (09:28→19:33)
[2022-03-13] MEDS: SODIUM BICARBONATE TAB 650 MG TAB PO SCH ×3 (09:28→19:33)
[2022-03-13] MEDS: DOCUSATE 100 MG CAP PO SCH (09:28)
[2022-03-13] MEDS: HYDROmorphone 1 MG/ML 1 ML SYRINGE IVP PRN (09:29)
[2022-03-13 12:01] LABS: Calcium 8.4 mg/dL (8.4-10.2); Potassium 4.8 mmol/L (3.5-5.1)
[2022-03-13 12:38] LABS: Magnesium 1.6 mg/dL (1.6-2.3); Phosphorus 6.9 mg/dL (2.5-4.5)
--- NOTE | 2022-03-13 13:54 | P.PN ---
Progress Note - Text Progress Note Date: 03/13/22 Vascular surgery was called back to remove temporary hemodialysis catheter in right groin. Catheter was intact in right groin without any surrounding redness or drainage. Patient has been voiding on his own. BUN and creatinine have been improving. Nephrology requested temporary HD cath be removed. Patient is plan for discharge later this afternoon. Sutures were removed from temporary catheter, pressure was held as catheter was removed without difficulty. Continued pressure applied until hemostasis. Pressure dressing applied at site. Patient's nurse Heather notified catheter was removed, and to reevaluate before discharge. The impression and plan of care has been dictated as directed. Dr. Paz I performed a history and examination of this patient, discussed the same with the dictator. I agree with the dictator's note ,documented as a scribe. Any a dditional findings or plans will be noted.
--- NOTE | 2022-03-13 15:26 | P.PN ---
Subjective Progress Note Date: 03/13/22 Principal diagnosis: R shoulder pain Patient was seen and examined. No acute events overnight. Patient continues to report right shoulder and right hip pain requiring Dilaudid as needed and Percocet. He is afraid that [facility] will not give him strong pain medications on discharge. Vascular surgery removed temporary hemodialysis catheter in the right groin. Most recent CIWA of 11. Objective - Vital Signs Vital signs: Vital Signs Temp 97.2 F L 03/13/22 12:00 Pulse 87 03/13/22 12:00 Resp 18 03/13/22 12:00 BP 127/73 03/13/22 12:00 Pulse Ox 97 03/13/22 12:00 FiO2 Intake & Output 03/12/22 03/13/22 03/13/22 18:59 06:59 18:59 Intake Total 1170 20 460 Output Total 850 2950 1600 Balance 083 -0561 -7510 Intake: IV 630 20 20 Invasive Line 5 30 20 20 Sodium Chloride 0.9% 1, 600 000 ml @ 50 mls/hr IV . Q20H [facility] Rx#:[id number] Oral 540 440 Output: Urine 850 2950 1600 Other: Voiding Method Urinal Urinal Urinal # Voids 2 - Exam General: [non toxic], [no distress], [appears at stated age] Derm: [warm], [dry] Head: [atraumatic], [normocephalic], [symmetric] Eyes: [EOMI], [no lid lag], [anicteric sclera] Mouth: [no lip lesion], [mucus membranes moist] Cardiovascular: [S1S2 reg], [no murmur] Lungs: [CTA bilateral], [no rhonchi, no rales] , [no accessory muscle use] Ext: [no gross muscle atrophy], [R shoulder swelling, restricted ROM due to swelling, radial pulse intact], [no contractures] Neuro: [no focal neuro deficits] Psych: [Alert], [oriented], [appropriate affect] Patient is tremulous and tearful. - Labs CBC & Chem 7: 03/12/22 10:14 03/13/22 10:34 Labs: Abnormal Lab Results - Last 24 Hours (Table) 03/13/22 03/13/22 Range/Units 10:34 10:34 Sodium 135 L (137-145) mmol/L BUN 32 H (9-20) mg/dL Creatinine 3.60 H (0.66-1.25) mg/dL Phosphorus 6.9 H (2.5-4.5) mg/dL Creatine Kinase 1385 H* (55-170) U/L Assessment and Plan Assessment: #Alcohol withdrawal syndrome in alcohol dependent patient Benzos per CIWA scale Seizure precautions Fall precautions Patient will return to [facility] once medically stable Patient started on Librium for better control of withdrawal symptoms #Acute rhabdomyolysis secondary to prolonged time on floor #Acute kidney injury secondary to above #Metabolic acidosis secondary to above Patient started on dialysis on 03/06/2022 Patient has dialysis catheter placed on 03/06/2022 and his right groin Status post 2 sessions of dialysis. Holding dialysis for now while monitoring renal function Nephrology on board Dialysis catheter removed, Creatinine significantly improved, needs repeat BMP within 3 days of DC as per Nephrology #Right arm and right lower extremity swelling and numbness secondary to myositis from rhabdomyolysis Patient states that he was drinking and passed out and when he regained consciousness he was lying on his right side. Right upper extremity ultrasound shows superficial thrombophlebitis. Patient seen by vascular surgery recommends elevating the hand and warm compression Right posterior venous Doppler negative for DVT and arterial Doppler negative for pseudoaneurysm. Patient's numbness is improving however still has significant swelling MRI of right shoulder and right hip that showed extensive edema and possible necrosis likely due to myositis and rhabdomyolysis Patient's imaging reviewed by orthopedic surgery and per ortho no surgical in tervention needed. Dilaudid discontinued and patient encouraged to ambulate, use Percocet sparingly, with anticipated DC tomorrow #Elevated troponin Likely due to rhabdomyolysis Cardiology recommended no further workup and have signed off #Elevated LFTs likely due to rhabdomyolysis versus alcoholic hepatitis and fatty liver -LFTs improving #Hypertension Controlled Resume labetalol and amlodipine DVT prophylaxis heparin subcu 3 times a day Full code Anticipate DC to [place] tomorrow, needs better pain control and improvement in withdrawal symptoms.
[2022-03-13] MEDS: chlordiazePOXIDE 25 MG CAP PO SCH ×2 (16:46→19:33)
--- NOTE | 2022-03-13 18:11 | CDI ---
Documentation Clarification Form Date: 03/16/2022 05:40:23 PM From: Conchita Lopez RN CCDS Admit Date: 03/03/2022 05:53:00 PM Patient Name: Delta Jaffe Visit Number: [id number] Discharge Date: ATTENTION: The Clinical Documentation Specialists (CDI) and [employer] Coding Staff appreciate your assistance in clarifying documentation. Please respond to the clarification below the line at the bottom and electronically sign. The CDI & [employer] Coding staff will review the response and follow-up if needed. Please note: Queries are made part of the Legal Health Record. If you have any questions, please contact the author of this message via ITS. Dr. Cricket Schuster Rhabdomyolysis is documented 03/03 thru 03/13, Medicine progress notes. Additional clarification regarding the type of rhabdomyolysis is requested. History/Risk Factors: 31 y/o male presents to the ED via EMS the patient was very intoxicated last night and woke up the floor he doesnt remember anything but is having right sided pain in his shoulder, arm and right hip from sleeping on the floor all night for unknown duration. Medical History: Alcohol use; HTN, Anxiety, Bipolar and Depression. 03/03, H&P. Clinical Indicators: VSS, 03/03: B/P 100/74; HR 90; Temp 97.5 FL; RR 18; SpO2 97% ra Labs, 03/03: Creatine Kinase [id number]; Creatinine 2.24 H&P,03/03: Patient noticed to have dark urine. Treatment: 03/03 0.9NS 1L x 3; 03/04 - 03/05 Dextrose/Water with Sodium Bicarbonate 150ml IVPB; 03/09 Sodium Bicarbonate 650mg PO TID; Monitor urine output; Avoid any nephrotoxins; 03/06 Hemodialysis; 03/06 Hemodialysis catheter insertion Please clarify the type of rhabdomyolysis, if known: [ ] Traumatic rhabdomyolysis due to fall [ ] Traumatic rhabdomyolysis due to prolonged immobility [ ] Non traumatic rhabdomyolysis due to medication (please specify) [ ] Non traumatic rhabdomyolysis due to infection (please specify) [ ] Other, please specify [ ] Unable to Determine Traumatic rhabdomyolysis due to prolonged immobility (Template Last Revised: October 2020) MTDD
[2022-03-14] MEDS: oxyCODONE-APAP 10-325MG 1 EACH TAB PO PRN ×5 (03:24→21:28)
[2022-03-14] MEDS: CALCIUM ACETATE 667 MG TAB PO SCH ×2 (06:38→17:28)
[2022-03-14] MEDS: SODIUM CHLORIDE 0.9% 1,000 ML IV SCH ×2 (06:38→23:06)
[2022-03-14] MEDS: PANTOPRAZOLE 40 MG TABLET PO SCH (06:38)
[2022-03-14] MEDS: THIAMINE 100 MG TAB PO SCH ×2 (06:38→17:28)
[2022-03-14] MEDS: SODIUM BICARBONATE TAB 650 MG TAB PO SCH ×3 (07:43→20:44)
[2022-03-14] MEDS: amLODIPine 10 MG TAB PO SCH (07:43)
[2022-03-14] MEDS: HEPARIN SODIUM,PORCINE/PF 5,000 UNIT/0.5 ML SYRINGE SQ SCH ×3 (07:43→23:03)
[2022-03-14] MEDS: DOCUSATE 100 MG CAP PO SCH (07:43)
[2022-03-14] MEDS: PREGABALIN 25 MG CAP PO SCH ×2 (07:43→20:44)
[2022-03-14] MEDS: chlordiazePOXIDE 25 MG CAP PO SCH ×3 (07:43→20:44)
[2022-03-14] MEDS: LABETALOL 100 MG TAB PO SCH ×2 (07:50→20:44)
[2022-03-14 10:13] LABS: Basophils # (A) 0.1 k/uL (0-0.2); Basophils % (A) 1 %; Eosinophils # (A) 0.2 k/uL (0-0.7); Eosinophils % (A) 1 %; HCT 36.2 % (39.0-53.0); HGB 11.7 gm/dL (13.0-17.5); Lymphocytes # (A) 2.1 k/uL (1.0-4.8); Lymphocytes % (A) 18 %; MCH 32.1 pg (25.0-35.0); MCHC 32.2 g/dL (31.0-37.0); MCV 99.6 fL (80.0-100.0); Mean Platelet Volume 7.3; Monocytes # (A) 0.6 k/uL (0-1.0); Monocytes % (A) 5 %; Neutrophils # (A) 8.4 k/uL (1.3-7.7); Neutrophils % (A) 73 %; Platelet Count 540 k/uL (150-450); RBC 3.64 m/uL (4.30-5.90); RDW 13.9 % (11.5-15.5); WBC 11.6 k/uL (3.8-10.6)
[2022-03-14 10:29] LABS: Albumin 3.5 g/dL (3.5-5.0); Calcium 9.1 mg/dL (8.4-10.2); Magnesium 1.4 mg/dL (1.6-2.3); Potassium 4.5 mmol/L (3.5-5.1); Total Bilirubin 0.4 mg/dL (0.2-1.3)
--- NOTE | 2022-03-14 10:48 | P.DS ---
Providers Date of admission: 03/03/22 17:53 Expected date of discharge: 03/14/22 Attending physician: Isha Landin MD Consults: 03/03/22 17:53 Consult Physician Urgent Consulting Provider: Jt Varghese Consult Reason/Comments: right arm numbness Do you want consulting provider notified?: Already Contacted 03/03/22 22:45 Consult Physician Routine Consulting Provider: Josiane Mercer Consult Reason/Comments: Acute kidney injury with rhabdo Do you want consulting provider notified?: Yes, Notify in am 03/04/22 06:49 Consult Physician Routine Consulting Provider: Norman Madrid Consult Reason/Comments: elevated trops Do you want consulting provider notified?: Yes Primary care physician: Stated None Hospital Course: 31-year-old male with hypertension controlled with medications Patient comes in today for evaluation of alcohol withdrawal syndrome. He initially went [facility] but then was sent to our facility as the patient reported that he was very intoxicated last night that he woke up on the floor doesn't remember anything he was having right-sided pain especially in his shoulder arm and right hip from sleeping on the floor all night for unknown duration. He also noticed to have dark urine. 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 He's been drinking heavily recently. Patient is not sure if he fell or no he doesn't remember anything from last night. Last alcoholic drink was last night. He denies any drugs he would smoke marijuana occasionally. He smokes cigarettes occasionally. He denies any recent travel or history of blood clots. Denies any coughing shortness of breath or chest pain. CT of the head was negative x-rays of the shoulder and hip showed no acute pathology chest x-rays no acute pathology. Rest of his blood work showed elevated creatine phosphokinase of more than 140,000, acute kidney injury with elevated creatinine more than 2 mild hyponatremia potassium of 5 lactic acid of 2.9 elevated liver enzymes in the toxic level patient denies any overdosing on Tylenol salicylic or any other drugs. Troponin was slightly elevated at 0.26 Patient reports severe pain right upper extremity mainly in the right shoulder and right hip. He also reports some numbness since he woke up and has right upper extremity mainly in the hand. Patient was noted to have rhabdomyolysis with CPK of 143,000 on admission. His creatinine was noted to be as high as 7.34. Nephrology was consulted and dialysis catheter was inserted temporarily for hemodialysis. He underwent 2 hemodialysis sessions and his kidney function improved to 3.19 on discharge. He was also discharged on sodium bicarb supplementation along with calcium acetate. He is advised to follow-up with nephrology within 1 week of discharge and re peat BMP and magnesium level on 03/16/2022. His magnesium level came back low at 1.4 on 03/14/2022. Magnesium sulfate 4 g IV was ordered prior to discharge. With regard to his right upper extremity pain, Orthopedic surgery was consulted. Right posterior venous Doppler negative for DVT and arterial Doppler negative for pseudoaneurysm. Right upper extremity ultrasound shows superficial thrombophlebitis. MRI of right shoulder and right hip that showed extensive edema and possible necrosis likely due to myositis and rhabdomyolysis. Orthopedic surgery and vascular surgery evaluated the patient and recommended no surgical intervention. His right shoulder and right hip pain significantly improved during his hospitalization. General: [non toxic], [no distress], [appears at stated age] Derm: [warm], [dry] Head: [atraumatic], [normocephalic], [symmetric] Eyes: [EOMI], [no lid lag], [anicteric sclera] Mouth: [no lip lesion], [mucus membranes moist] Cardiovascular: [S1S2 reg], [no murmur] Lungs: [CTA bilateral], [no rhonchi, no rales] , [no accessory muscle use] Ext: [no gross muscle atrophy], [R shoulder swelling, restricted ROM due to swelling, radial pulse intact], [no contractures] Neuro: [no focal neuro deficits] Psych: [Alert], [oriented], [appropriate affect] Discharge Diagnosis: #Alcohol withdrawal syndrome in alcohol dependent patient #Acute rhabdomyolysis secondary to prolonged time on floor #Acute kidney injury secondary to above #Metabolic acidosis secondary to above #Right arm and right lower extremity swelling and numbness secondary to myositis from rhabdomyolysis #Elevated troponin #Elevated LFTs likely due to rhabdomyolysis versus alcoholic hepatitis and fatty liver #Hypertension This complex discharge took about 45 minutes to complete. Pertinent Studies: hip x-ray Shoulder x-ray CT head and C-spine CT abdomen and pelvis MRI of the hip MRI of the shoulder Arterial duplex Venous Doppler Patient Condition at Discharge: Stable Plan - Discharge Summary Discharge Rx Participant: No New Discharge Prescriptions: New Docusate [Colace] 100 mg PO DAILY cap Calcium Acetate [PhosLo] 667 mg PO BID-W/MEALS tab Sodium Bicarbonate Tab 650 mg PO TID tab oxyCODONE-APAP 10-325MG [Percocet 10-325 mg] 1 each PO Q4HR PRN 3 Days #18 tab PRN Reason: Pain Pantoprazole [Protonix] 40 mg PO AC-BRKFST tab Thiamine [Vitamin B-1] 100 mg PO BID-W/MEALS tab Continue amLODIPine [Norvasc] 10 mg PO DAILY Labetalol [Trandate] 100 mg PO BID Discharge Medication List Labetalol [Trandate] 100 mg PO BID 03/03/22 [History] amLODIPine [Norvasc] 10 mg PO DAILY 03/03/22 [History] Calcium Acetate [PhosLo] 667 mg PO BID-W/MEALS tab 03/14/22 [Rx] Docusate [Colace] 100 mg PO DAILY cap 03/14/22 [Rx] Pantoprazole [Protonix] 40 mg PO AC-BRKFST tab 03/14/22 [Rx] Sodium Bicarbonate Tab 650 mg PO TID tab 03/14/22 [Rx] Thiamine [Vitamin B-1] 100 mg PO BID-W/MEALS tab 03/14/22 [Rx] oxyCODONE-APAP 10-325MG [Percocet 10-325 mg] 1 each PO Q4HR PRN 3 Days #18 tab 03/14/22 [Rx] Follow up Appointment(s)/Referral(s): None,Stated [Primary Care Provider] - 1-2 days Lyle Morrow DO [STAFF PHYSICIAN] - 1 Week Ambulatory/Diagnostic Orders: Basic Metabolic Panel [LAB.AMB] Time Frame: 03/16/22, Location: None Selected Magnesium [LAB.AMB] Time Frame: 03/16/22, Location: None Selected Patient Instructions/Handouts: Dehydrated Alcohol (By injection), Acute Kidney Injury (DC), Rhabdomyolysis (ED), Alcohol Intoxication (ED), Abuse of Alcohol (ED), At-Risk Alcohol Use (ED), Alcohol Withdrawal (ED), Hemodialysis for Acute Kidney Failure (DC) Activity/Diet/Wound Care/Special Instructions: At dc contacted [facility] at [phone] ext [phone] for transportation back there Diet: Low salt FU PCP within 1-2 days of DC. Take all medications as advised. FU with Nephrology within 1 week of DC. Repeat BMP and Mg on 03/16 to be followed up with your PCP. Please refrain from drinking alcohol. Discharge Disposition: OTHER INSTITUTION NOT DEFINED
[2022-03-14] MEDS: MAGNESIUM SULFATE-D5W PMX 1 GM in DEXTROSE/WATER 1 100ML.BAG IVPB SCH ×4 (13:59→17:00)
[2022-03-15] MEDS: oxyCODONE-APAP 10-325MG 1 EACH TAB PO PRN ×5 (02:51→19:32)
--- NOTE | 2022-03-15 05:40 | PN ---
PROGRESS NOTE SUBJECTIVE: The patient is seen for followup for acute kidney injury secondary to rhabdomyolysis and status post hemodialysis temporarily. The patient has been off dialysis since 03/07/2022. His renal function continues to improve. This morning, serum creatinine is down to 3.1. The patient has had good urine output. CK level is decreasing. OBJECTIVE: VITAL SIGNS: On examination this morning, blood pressure 135/85, heart rate 95 per minute, the patient is afebrile. HEART: S1, S2. LUNGS: Bilateral breath sounds are heard. ABDOMEN: Soft, nontender. EXTREMITIES: Examination of lower extremities shows no significant edema. FRONT END DRIVER: Grossly intact. LABORATORY DATA: Labs show hemoglobin of 11.7. Sodium 137, potassium 4.5, BUN 30, serum creatinine 3.19. CK level 1385, yesterday. ASSESSMENT: 1. Acute kidney injury/acute tubular necrosis secondary to rhabdomyolysis, currently off hemodialysis with continued improvement in renal function. 2. Rhabdomyolysis with history of fall, currently improving. 3. History of EtOH abuse. 4. Hyperphosphatemia secondary to acute kidney injury, maintained on PhosLo. 5. Metabolic acidosis associated with acute kidney injury, status post IV bicarbonate. PLAN: Continue off dialysis. Dialysis catheter was removed yesterday. The patient will need to follow up in the office in about 1 week's time with the repeat labs. MMODL / IJN: [id number] /
[2022-03-15] MEDS: THIAMINE 100 MG TAB PO SCH ×2 (06:31→15:28)
[2022-03-15] MEDS: PANTOPRAZOLE 40 MG TABLET PO SCH (06:31)
[2022-03-15] MEDS: CALCIUM ACETATE 667 MG TAB PO SCH ×2 (06:31→15:28)
--- NOTE | 2022-03-15 08:28 | P.PN ---
Subjective Patient is seen for follow-up for acute kidney injury secondary to rhabdo my lysis. Patient was initially oliguric and required temporary hemodialysis. Patient has been off of dialysis since 03/07/2022. Renal function continues to improve. Dialysis catheter has been removed. Next This morning patient is sitting on a bedside chair. He is complaining of pain in his right arm and right leg but much improved than on initial admission. good urine output Serum creatinine down to 3.19 mg/dL as of 03/14/2022 Objective - Vital Signs Vital signs: Vital Signs Temp 98 F 03/15/22 03:23 Pulse 92 03/15/22 03:23 Resp 19 03/15/22 03:23 BP 143/85 03/15/22 03:23 Pulse Ox 95 03/15/22 03:23 FiO2 Intake & Output 03/14/22 03/15/22 03/15/22 18:59 06:59 18:59 Intake Total 620 540 300 Output Total 3600 3050 400 Balance -2980 -2510 -100 Intake: IV 20 Invasive Line 6 20 Oral 600 540 300 Output: Urine 3600 3050 400 Other: Voiding Method Urinal - Exam Awake, comfortable, not in any acute distress Examination of the heart S1 and S2 Examination lungs bilateral breath sounds are heard Abdomen is soft nontender Examination lower extremity shows no significant edema Right upper extremity is swollen, improved. 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 Patient is alert and oriented 3 - Labs CBC & Chem 7: 03/14/22 09:39 03/14/22 09:39 Labs: Abnormal Lab Results - Last 24 Hours (Table) 03/14/22 03/14/22 Range/Units 09:39 09:39 WBC 11.6 H (3.8-10.6) k/uL RBC 3.64 L (4.30-5.90) m/uL Hgb 11.7 L (13.0-17.5) gm/dL Hct 36.2 L (39.0-53.0) % Plt Count 540 H (150-450) k/uL Neutrophils # 8.4 H (1.3-7.7) k/uL BUN 30 H (9-20) mg/dL Creatinine 3.19 H (0.66-1.25) mg/dL Magnesium 1.4 L (1.6-2.3) mg/dL ALT 62 H (4-49) U/L Total Protein 6.0 L (6.3-8.2) g/dL Assessment and Plan Assessment: 1. Acute kidney injury ATN secondary to rhabdomyolysis and contrast nephropathy. status post temporary hemodialysis. Dialysis catheter has been removed. Renal function continues to improve. 2. Severe rhabdo my lysis status post fall. Patient was on the floor overnight. CK levels are decreasing 3. Hyperphosphatemia associated with rhabdo my lysis 4. EtOH abuse 5. Hypovolemia 6. Hyponatremia associated with acute kidney injury, improved Plan: .DC sodium bicarb Encourage increased oral intake Repeat labs in a.m. Avoid any nephrotoxic agents
[2022-03-15] MEDS ORDERED: KETOROLAC 15 MG/ML 1 ML VIAL IVP STA (09:28)
--- NOTE | 2022-03-15 09:41 | P.DS ---
Providers Date of admission: 03/03/22 17:53 Expected date of discharge: 03/15/22 Attending physician: Isha Landin MD Consults: 03/03/22 17:53 Consult Physician Urgent Consulting Provider: Jt Varghese Consult Reason/Comments: right arm numbness Do you want consulting provider notified?: Already Contacted 03/03/22 22:45 Consult Physician Routine Consulting Provider: Josiane Mercer Consult Reason/Comments: Acute kidney injury with rhabdo Do you want consulting provider notified?: Yes, Notify in am 03/04/22 06:49 Consult Physician Routine Consulting Provider: Norman Madrid Consult Reason/Comments: elevated trops Do you want consulting provider notified?: Yes Primary care physician: Stated None Hospital Course: 31-year-old male with hypertension controlled with medications Patient comes in today for evaluation of alcohol withdrawal syndrome. He initially went [facility] but then was sent to our facility as the patient reported that he was very intoxicated last night that he woke up on the floor doesn't remember anything he was having right-sided pain especially in his shoulder arm and right hip from sleeping on the floor all night for unknown duration. He also noticed to have dark urine. 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 He's been drinking heavily recently. Patient is not sure if he fell or no he doesn't remember anything from last night. Last alcoholic drink was last night. He denies any drugs he would smoke marijuana occasionally. He smokes cigarettes occasionally. He denies any recent travel or history of blood clots. Denies any coughing shortness of breath or chest pain. CT of the head was negative x-rays of the shoulder and hip showed no acute pathology chest x-rays no acute pathology. Rest of his blood work showed elevated creatine phosphokinase of more than 140,000, acute kidney injury with elevated creatinine more than 2 mild hyponatremia potassium of 5 lactic acid of 2.9 elevated liver enzymes in the toxic level patient denies any overdosing on Tylenol salicylic or any other drugs. Troponin was slightly elevated at 0.26 Patient reports severe pain right upper extremity mainly in the right shoulder and right hip. He also reports some numbness since he woke up and has right upper extremity mainly in the hand. Patient was noted to have rhabdomyolysis with CPK of 143,000 on admission. His creatinine was noted to be as high as 7.34. Nephrology was consulted and dialysis catheter was inserted temporarily for hemodialysis. He underwent 2 hemodialysis sessions and his kidney function improved to 3.19 on discharge. He was also discharged on sodium bicarb supplementation along with calcium acetate. He is advised to follow-up with nephrology within 1 week of discharge and re peat BMP and magnesium level on 03/16/2022. His magnesium level came back low at 1.4 on 03/14/2022. Magnesium sulfate 4 g IV was ordered prior to discharge. With regard to his right upper extremity pain, Orthopedic surgery was consulted. Right posterior venous Doppler negative for DVT and arterial Doppler negative for pseudoaneurysm. Right upper extremity ultrasound shows superficial thrombophlebitis. MRI of right shoulder and right hip that showed extensive edema and possible necrosis likely due to myositis and rhabdomyolysis. Orthopedic surgery and vascular surgery evaluated the patient and recommended no surgical intervention. His right shoulder and right hip pain significantly improved during his hospitalization. His discharge was held yesterday as [facility] couldnt accept him. He was seen and examined on 03/15. He reports worsening pain with movement in his R quadriceps. Plans to give him 30 mg IV Toradol along with obtain crutches from PT prior to discharge. General: [non toxic], [no distress], [appears at stated age] Derm: [warm], [dry] Head: [atraumatic], [normocephalic], [symmetric] Eyes: [EOMI], [no lid lag], [anicteric sclera] Mouth: [no lip lesion], [mucus membranes moist] Cardiovascular: [S1S2 reg], [no murmur] Lungs: [CTA bilateral], [no rhonchi, no rales] , [no accessory muscle use] Ext: [no gross muscle atrophy], [Tenderness to palpation R quadriceps, popliteal and DP pulses palpable], [no contractures] Neuro: [no focal neuro deficits] Psych: [Alert], [oriented], [appropriate affect] Discharge Diagnosis: #Alcohol withdrawal syndrome in alcohol dependent patient #Acute rhabdomyolysis secondary to prolonged time on floor #Acute kidney injury secondary to above #Metabolic acidosis secondary to above #Right arm and right lower extremity swelling and numbness secondary to myositis from rhabdomyolysis #Elevated troponin #Elevated LFTs likely due to rhabdomyolysis versus alcoholic hepatitis and fatty liver #Hypertension This complex discharge took about 45 minutes to complete. Pertinent Studies: hip x-ray Shoulder x-ray CT head and C-spine CT abdomen and pelvis MRI of the hip MRI of the shoulder Arterial duplex Venous Doppler Patient Condition at Discharge: Stable Plan - Discharge Summary Discharge Rx Participant: No New Discharge Prescriptions: New RX: Docusate [Colace] 100 mg PO DAILY #30 capsule RX: Calcium Acetate [PhosLo] 667 mg PO BID #60 capsule Pantoprazole [Protonix] 40 mg PO DAILY #30 tab RX: oxyCODONE-APAP 10-325MG [Percocet 10-325 mg] 1 each PO Q4HR PRN 3 Days #18 tab PRN Reason: Pain RX: Pregabalin [Lyrica] 25 mg PO BID #60 cap RX: Thiamine [Vitamin B-1] 100 mg PO BID-W/MEALS #60 tablet Continue RX: amLODIPine [Norvasc] 10 mg PO DAILY #30 tab RX: Labetalol [Trandate] 100 mg PO BID #60 tab Discharge Medication List RX: oxyCODONE-APAP 10-325MG [Percocet 10-325 mg] 1 each PO Q4HR PRN 3 Days #18 tab 03/14/22 [Rx] Pantoprazole [Protonix] 40 mg PO DAILY #30 tab 03/15/22 [Rx] RX: Calcium Acetate [PhosLo] 667 mg PO BID #60 capsule 03/15/22 [Rx] RX: Docusate [Colace] 100 mg PO DAILY #30 capsule 03/15/22 [Rx] RX: Labetalol [Trandate] 100 mg PO BID #60 tab 03/15/22 [Rx] RX: Pregabalin [Lyrica] 25 mg PO BID #60 cap 03/15/22 [Rx] RX: Thiamine [Vitamin B-1] 100 mg PO BID-W/MEALS #60 tablet 03/15/22 [Rx] RX: amLODIPine [Norvasc] 10 mg PO DAILY #30 tab 03/15/22 [Rx] Follow up Appointment(s)/Referral(s): None,Stated [Primary Care Provider] - 1-2 days Lyle Morrow DO [STAFF PHYSICIAN] - 1 Week Ambulatory/Diagnostic Orders: Basic Metabolic Panel [LAB.AMB] Time Frame: 03/16/22, Location: None Selected Magnesium [LAB.AMB] Time Frame: 03/16/22, Location: None Selected Patient Instructions/Handouts: Dehydrated Alcohol (By injection), Acute Kidney Injury (DC), Rhabdomyolysis (ED), Alcohol Intoxication (ED), Abuse of Alcohol (ED), At-Risk Alcohol Use (ED), Alcohol Withdrawal (ED), Hemodialysis for Acute Kidney Failure (DC) Activity/Diet/Wound Care/Special Instructions: At dc contacted [facility] at [phone] for transportation back there Diet: Low salt FU PCP within 1-2 days of DC. Take all medications as advised. FU with Nephrology within 1 week of DC. Repeat BMP and Mg on 03/16 to be followed up with your PCP. Please refrain from drinking alcohol. Discharge Disposition: OTHER INSTITUTION NOT DEFINED
[2022-03-15] MEDS: HEPARIN SODIUM,PORCINE/PF 5,000 UNIT/0.5 ML SYRINGE SQ SCH ×2 (09:45→15:27)
[2022-03-15] MEDS: DOCUSATE 100 MG CAP PO SCH (09:45)
[2022-03-15] MEDS: amLODIPine 10 MG TAB PO SCH (09:45)
[2022-03-15] MEDS: chlordiazePOXIDE 25 MG CAP PO SCH ×3 (09:45→20:20)
[2022-03-15] MEDS: PREGABALIN 25 MG CAP PO SCH ×2 (09:45→20:20)
[2022-03-15] MEDS: LABETALOL 100 MG TAB PO SCH ×2 (09:46→20:20)
[2022-03-15] MEDS: SODIUM CHLORIDE 0.9% 1,000 ML IV SCH (15:31)
[2022-03-16] MEDS: HEPARIN SODIUM,PORCINE/PF 5,000 UNIT/0.5 ML SYRINGE SQ SCH ×2 (00:07→09:15)
[2022-03-16] MEDS: oxyCODONE-APAP 10-325MG 1 EACH TAB PO PRN ×4 (00:08→15:32)
[2022-03-16 05:41] VITALS: TEMP 98.3
[2022-03-16] MEDS: PANTOPRAZOLE 40 MG TABLET PO SCH (07:01)
[2022-03-16] MEDS: THIAMINE 100 MG TAB PO SCH (07:01)
[2022-03-16] MEDS: CALCIUM ACETATE 667 MG TAB PO SCH (07:01)
[2022-03-16 07:03] LABS: Calcium 9.5 mg/dL (8.4-10.2); Potassium 4.7 mmol/L (3.5-5.1)
[2022-03-16] MEDS: LABETALOL 100 MG TAB PO SCH (09:15)
[2022-03-16] MEDS: chlordiazePOXIDE 25 MG CAP PO SCH (09:15)
[2022-03-16] MEDS: DOCUSATE 100 MG CAP PO SCH (09:15)
[2022-03-16] MEDS: amLODIPine 10 MG TAB PO SCH (09:15)
--- NOTE | 2022-03-16 09:15 | P.PN ---
Subjective Patient is seen for follow-up for acute kidney injury secondary to rhabdo my lysis. Patient was initially oliguric and required temporary hemodialysis. Patient has been off of dialysis since 03/07/2022. Renal function continues to improve. Dialysis catheter has been removed. Next This morning patient is sitting on a bedside chair. He is complaining of pain in his right arm and right leg but much improved than on initial admission. good urine output Serum creatinine down to 2.7 mg/dL today Objective - Vital Signs Vital signs: Vital Signs Temp 98.3 F 03/16/22 04:00 Pulse 95 03/16/22 08:21 Resp 18 03/16/22 08:21 BP 137/84 03/16/22 08:21 Pulse Ox 97 03/16/22 08:21 FiO2 Intake & Output 03/15/22 03/16/22 03/16/22 18:59 06:59 18:59 Intake Total 4780 358 Output Total 2600 1900 400 Balance 2180 -1900 -42 Weight 101.6 kg Intake: IV 620 Invasive Line 6 20 Sodium Chloride 0.9% 1, 600 000 ml @ 50 mls/hr IV . Q20H [facility], [facility]–1983 Rx#:[id number] Oral 4160 358 Output: Urine 2600 1900 400 Other: Voiding Method Urinal Urinal - Exam Awake, comfortable, not in any acute distress Examination of the heart S1 and S2 Examination lungs bilateral breath sounds are heard Abdomen is soft nontender Examination lower extremity shows no significant edema Right upper extremity is swollen, improved. 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 Patient is alert and oriented 3 - Labs CBC & Chem 7: 03/14/22 09:39 03/16/22 06:22 Labs: Abnormal Lab Results - Last 24 Hours (Table) 03/16/22 Range/Units 06:22 Sodium 136 L (137-145) mmol/L BUN 28 H (9-20) mg/dL Creatinine 2.73 H (0.66-1.25) mg/dL Assessment and Plan Assessment: 1. Acute kidney injury ATN secondary to rhabdomyolysis and contrast nephropathy. status post temporary hemodialysis. Dialysis catheter has been removed. Renal function continues to improve. 2. Severe rhabdo myolysis status post fall. Patient was on the floor overnight. CK levels are decreasing 3. Hyperphosphatemia associated with rhabdo my lysis 4. EtOH abuse 5. Hypovolemia 6. Hyponatremia associated with acute kidney injury, improved Plan: Add phosphorus to labs from today Try to avoid use of NSAIDs given the recent severe acute kidney injury.
[2022-03-16] MEDS: PREGABALIN 25 MG CAP PO SCH (10:29)
[2022-03-16 11:23] VITALS: BP 126/75; PULSE 86; RESP 16
== END 2022-03-16 18:26 | disposition home or self-care (01) | DRG 564 ==
LOC: EC 12:51 → 3SCARD 17:53
PROVIDERS: ADMIT Internal Medicine; ATTEND Internal Medicine
PROC: 06HY33Z Insertion of Infusion Device into Lower Vein, Percutaneous Approach (ICD-10-PCS; principal; 2022-03-06)
PROC: 5A1D70Z Performance of Urinary Filtration, Intermittent, Less than 6 Hours Per Day (ICD-10-PCS; 2022-03-06)
DX: T79.6XXA Traumatic ischemia of muscle, initial encounter (principal); K72.00 Acute and subacute hepatic failure without coma; N17.0 Acute kidney failure with tubular necrosis; F10.239 Alcohol dependence with withdrawal, unspecified; E87.2 Acidosis; E87.1 Hypo-osmolality and hyponatremia; F17.210 Nicotine dependence, cigarettes, uncomplicated; F31.9 Bipolar disorder, unspecified; F41.9 Anxiety disorder, unspecified; I10 Essential (primary) hypertension; F10.229 Alcohol dependence with intoxication, unspecified; I80.9 Phlebitis and thrombophlebitis of unspecified site; K76.0 Fatty (change of) liver, not elsewhere classified; E83.39 Other disorders of phosphorus metabolism; L89.899 Pressure ulcer of other site, unspecified stage; M60.9 Myositis, unspecified; N14.1 Nephropathy induced by other drugs, medicaments and biological substances; S44.91XA Injury of unspecified nerve at shoulder and upper arm level, right arm, initial encounter; T50.8X5A Adverse effect of diagnostic agents, initial encounter; S30.1XXA Contusion of abdominal wall, initial encounter; Z79.899 Other long term (current) drug therapy; E83.42 Hypomagnesemia; E86.0 Dehydration; E86.1 Hypovolemia; E87.70 Fluid overload, unspecified
CPT/HCPCS: 36415; 70450; 71046; 71275; 72125; 73502; 74176; 80048; 80053; 80074; 80306; 80320; 81001; 82550; 83036; 83605; 83735; 83880; 84100; 84484; 85025; 85610; 85730; 86704; 86706; 87340; 90935; 93005; 93306; 93975; 94760; 96360; 96361; 99285

== ENCOUNTER 2022-03-19 13:03 | Emergency (ER) | payer BC, OTHER ==
[2022-03-19 13:15] VITALS: RESP 18
--- NOTE | 2022-03-19 13:15 | ED ---
General Adult HPI - General Stated complaint: Swelling rt leg Time Seen by Provider: 03/19/22 13:03 Source: patient, RN notes reviewed, old records reviewed - History of Present Illness Initial comments: This is a 31-year-old male presents emergency department because his right arm and right leg remained swollen. Patient was intoxicated and was laying on his right leg and right arm for 10 hours he came to the hospital and renal failure and rhabdomyolysis. Patient was in the hospital for a few days and then went back to [facility] patient states his arm is still swollen his legs still swollen so they sent him back in to be evaluated before he can return. Patient has not had any drinks over 10 days. Patient denies any fever chills or cough per patient states chest pain difficult breathing shor tness of breath. Patient denies any recent injury. - Related Data Home Medications Medication Instructions Recorded Confirmed Acetaminophen [Tylenol] 650 mg PO Q4H PRN MDD 3 doses 03/19/22 03/19/22 Chlorpheniramine Maleate 4 mg PO Q4H PRN 03/19/22 03/19/22 [Chlor-Trimeton] Ibuprofen [Motrin Ib] 600 mg PO Q6H PRN 03/19/22 03/19/22 Loperamide HCl [Imodium A-D] 4 mg PO QID PRN MDD 8 capsules 03/19/22 03/19/22 Sertraline [Zoloft] 50 mg PO DAILY 03/19/22 03/19/22 ondansetron HCL [Zofran] 8 mg PO Q6HR PRN 03/19/22 03/19/22 traZODone HCL [Desyrel] 50 - 150 mg PO HS PRN 03/19/22 03/19/22 Previous Rx's Medication Instructions Recorded Calcium Acetate [PhosLo] 667 mg PO BID #60 capsule 03/15/22 Docusate [Colace] 100 mg PO DAILY #30 capsule 03/15/22 Labetalol [Trandate] 100 mg PO BID #60 tab 03/15/22 Pantoprazole [Protonix] 40 mg PO DAILY #30 tab 03/15/22 Thiamine [Vitamin B-1] 100 mg PO BID-W/MEALS #60 tablet 03/15/22 amLODIPine [Norvasc] 10 mg PO DAILY #30 tab 03/15/22 Allergies Allergy/AdvReac Type Severity Reaction Status Date / Time No Known Allergies Allergy Verified 03/03/22 17:00 Review of Systems ROS Statement: Those systems with pertinent positive or pertinent negative responses have been documented in the HPI. ROS Other: All systems not noted in ROS Statement are negative. Past Medical History Past Medical History: Hypertension History of Any Multi-Drug Resistant Organisms: None Reported Past Surgical History: No Surgical Hx Reported Past Anesthesia/Blood Transfusion Reactions: No Reported Reaction Past Psychological History: Anxiety, Bipolar, Depression Smoking Status: Current some day smoker Past Alcohol Use History: Daily Past Drug Use History: Marijuana - Past Family History Family Family Medical History: No Reported History General Exam - General Exam Comments Initial Comments: GENERAL: Patient is well-developed and well-nourished. Patient is nontoxic and well- hydrated and is in no acute distress. ENT: Neck is soft and supple. No significant lymphadenopathy is noted. Oropharynx is clear. Moist mucous membranes. Neck has full range of motion without eliciting any pain. EYES: The sclera were anicteric and conjunctiva were pink and moist. Extraocular movements were intact and pupils were equal round and reactive to light. Eyelids were unremarkable. PULMONARY: Unlabored respirations. Good breath sounds bilaterally. No audible rales rhonchi or wheezing was noted. CARDIOVASCULAR: There is a regular rate and rhythm without any murmurs gallops or rubs. ABDOMEN: Soft and nontender with normal bowel sounds. SKIN: Skin is clear with no lesions or rashes and otherwise unremarkable. NEUROLOGIC: Patient is alert and oriented x3. Cranial nerves II through XII are grossly intact. Motor and sensory are also intact. Normal speech, volume and content. Symmetrical smile. MUSCULOSKELETAL: Normal extremities with adequate strength and full range of motion. Patient's right arm and right leg are swollen he has edema in his right foot and left foot but the right is considerably larger than the left foot. LYMPHATICS: No significant lymphadenopathy is noted PSYCHIATRIC: Normal psychiatric evaluation. Course Vital Signs 03/19/22 03/19/22 03/19/22 13:11 14:30 15:18 Temperature 98.6 F Pulse Rate 96 82 85 Respiratory 18 18 18 Rate Blood Pressure 146/97 129/83 106/79 O2 Sat by Pulse 98 95 96 Oximetry Medical Decision Making - Medical Decision Making Ultrasound of the upper or lower chest showed no DVT. Labwork was done and kidney functions much improved. - Lab Data Result diagrams: 03/19/22 13:28 03/19/22 13:28 Lab Results 03/19/22 03/19/22 Range/Units 13:28 13:28 WBC 9.6 (3.8-10.6) k/uL RBC 3.44 L (4.30-5.90) m/uL Hgb 11.0 L (13.0-17.5) gm/dL Hct 33.1 L (39.0-53.0) % MCV 96.0 (80.0-100.0) fL MCH 32.1 (25.0-35.0) pg MCHC 33.4 (31.0-37.0) g/dL RDW 13.6 (11.5-15.5) % Plt Count 590 H (150-450) k/uL MPV 7.2 Neutrophils % 74 % Lymphocytes % 13 % Monocytes % 7 % Eosinophils % 2 % Basophils % 0 % Neutrophils # 7.1 (1.3-7.7) k/uL Lymphocytes # 1.3 (1.0-4.8) k/uL Monocytes # 0.7 (0-1.0) k/uL Eosinophils # 0.2 (0-0.7) k/uL Basophils # 0.0 (0-0.2) k/uL Sodium 140 (137-145) mmol/L Potassium 4.5 (3.5-5.1) mmol/L Chloride 104 (98-107) mmol/L Carbon Dioxide 22 (22-30) mmol/L Anion Gap 14 mmol/L BUN 19 (9-20) mg/dL Creatinine 1.53 H (0.66-1.25) mg/dL Est GFR (CKD-EPI)AfAm 69 (>60 ml/min/1.73 sqM) Est GFR (CKD-EPI)NonAf 60 (>60 ml/min/1.73 sqM) Glucose 100 H (74-99) mg/dL Calcium 9.8 (8.4-10.2) mg/dL Total Bilirubin 0.8 (0.2-1.3) mg/dL AST 38 (17-59) U/L ALT 40 (4-49) U/L Alkaline Phosphatase 62 (38-126) U/L Creatine Kinase 212 H (55-170) U/L Total Protein 7.1 (6.3-8.2) g/dL Albumin 4.3 (3.5-5.0) g/dL Disposition Clinical Impression: Extremity edema Disposition: HOME SELF-CARE Condition: Good Instructions (If sedation given, give patient instructions): Edema (ED) Is patient prescribed a controlled substance at d/c from ED?: No Referrals: None,Stated [Primary Care Provider] - 1-2 days Time of Disposition: 16:38
[2022-03-19 13:44] LABS: Basophils % (A) 0 %; Eosinophils # (A) 0.2 k/uL (0-0.7); Eosinophils % (A) 2 %; HCT 33.1 % (39.0-53.0); Lymphocytes # (A) 1.3 k/uL (1.0-4.8); Lymphocytes % (A) 13 %; MCH 32.1 pg (25.0-35.0); MCHC 33.4 g/dL (31.0-37.0); Mean Platelet Volume 7.2; Monocytes # (A) 0.7 k/uL (0-1.0); Monocytes % (A) 7 %; Neutrophils # (A) 7.1 k/uL (1.3-7.7); Neutrophils % (A) 74 %; Platelet Count 590 k/uL (150-450); RBC 3.44 m/uL (4.30-5.90); RDW 13.6 % (11.5-15.5); WBC 9.6 k/uL (3.8-10.6)
[2022-03-19 13:46] LABS: Albumin 4.3 g/dL (3.5-5.0); Calcium 9.8 mg/dL (8.4-10.2); Potassium 4.5 mmol/L (3.5-5.1); Total Bilirubin 0.8 mg/dL (0.2-1.3); Total Protein 7.1 g/dL (6.3-8.2)
--- NOTE | 2022-03-19 16:08 | US ---
EXAMINATION TYPE: US venous doppler duplex UE RT DATE OF EXAM: 03/19/2022 COMPARISON: 03/04/2022 CLINICAL HISTORY: 31-year-old male Swollen leg. TECHNIQUE: Grayscale, color doppler, spectral doppler imaging performed of the deep veins of the upp er extremities SIDE PERFORMED: Right FINDINGS: There is normal flow, compressibility and vascular waveforms. Right Arm: Appears negative for DVT IMPRESSION: No evidence for DVT within the right upper extremity. The previous SVT is no longer seen.
[2022-03-19] MEDS ORDERED: KETOROLAC 15 MG/ML 1 ML VIAL IVP STA (16:09)
--- NOTE | 2022-03-19 16:34 | US ---
EXAMINATION TYPE: US venous doppler duplex LE RT DATE OF EXAM: 03/19/2022 3:57 PM COMPARISON: US 2021 CLINICAL HISTORY: 31-year-old male Swollen leg. SIDE PERFORMED: Right TECHNIQUE: The lower extremity deep venous system is examined utilizing real time linear array sonog sneha with graded compression, doppler sonography and color-flow sonography. VESSELS IMAGED: Common Femoral Vein Deep Femoral Vein Greater Saphenous Vein * Femoral Vein Popliteal Vein Small Saphenous Vein * Proximal Calf Veins (* superficial vessels) Right Leg: Appears negative for DVT IMPRESSION: No evidence for DVT within the right lower extremity imaged from the groin to the upper calf.
[2022-03-19 17:06] VITALS: BP 130/78; PULSE 84; TEMP 98.2
== END 2022-03-19 17:12 | disposition home or self-care (01) ==
LOC: EC 13:03
DX: R60.0 Localized edema (principal); F17.200 Nicotine dependence, unspecified, uncomplicated; I10 Essential (primary) hypertension; Z79.899 Other long term (current) drug therapy
CPT/HCPCS: 36415; 80053; 82550; 85025; 93971 ×2; 99284; 96374; J1885